=== PATIENT | male | born 1960 | race Caucasian/White ===

== ENCOUNTER 2019-03-18 16:56 | Inpatient (IN) | payer MEDICARE ==
[~2019-03-18] VITALS: Ht 180.3 cm; Wt 97.7 kg
[2019-03-18 17:20] LABS: BASOPHILS # (AUTO) 0.1 (0.0-0.1); BASOPHILS % 1.1 % (0.0-1.0); EOSINOPHILS # (AUTO) 0.2 (0.0-0.4); EOSINOPHILS % 3.4 % (0.0-6.0); HEMATOCRIT 27.1 % (38.2-49.6); HEMOGLOBIN 8.8 g/dL (14.0-18.0); LYMPHOCYTES # (AUTO) 1.4 (1.0-3.2); LYMPHOCYTES % 21.6 % (18.0-39.1); MEAN CORPUSCULAR HEMOGLOBIN 30.1 pg (28-32); MEAN CORPUSCULAR HGB CONC 32.5 g/dL (31-35); MEAN CORPUSCULAR VOLUME 92.8 fL (81-99); MONOCYTES # (AUTO) 0.5 (0.2-0.8); MONOCYTES % 7.9 % (4.4-11.3); NEUTROPHILS # (AUTO) 4.2 (2.1-6.9); NEUTROPHILS % 65.7 % (38.7-80.0); PLATELET COUNT 267 x10e3/uL (140-360); RED BLOOD COUNT 2.92 x10e6/uL (4.3-5.7); RED CELL DISTRIBUTION WIDTH 16.8 % (11.7-14.4)
[2019-03-18 17:30] LABS: INR 1.05; PROTHROMBIN TIME 14.2 seconds (11.9-14.5)
[2019-03-18] MEDS ORDERED: FUROSEMIDE INJ 10 MG/ML 4 ML VIAL IV ONE (17:30)
[2019-03-18 17:40] LABS: ALBUMIN 3.8 g/dL (3.5-5.0); ALBUMIN/GLOBULIN RATIO 1.2 (0.8-2.0); ANION GAP 16.3 mmol/L (8-16); CALCIUM 9.3 mg/dL (8.4-10.2); CREATININE, SERUM 5.83 mg/dL (0.72-1.25); POTASSIUM 4.3 mmol/L (3.5-5.1)
--- NOTE | 2019-03-18 17:52 | Diagnostic Imaging Report ---
EXAMINATION: CHEST SINGLE (PORTABLE) INDICATION: Chest patient is of breath. COMPARISON: None FINDINGS: TUBES and LINES: None. LUNGS: Mild central pulmonary edema. Bibasilar subsegmental atelectasis. Mild elevation of the right hemidiaphragm. There is mild prominence of the central pulmonary vasculature, consistent with pulmonary venous congestion. PLEURA: Small to moderate right and small left pleural effusions. No pneumothorax. HEART AND MEDIASTINUM: Cardiac size is mildly enlarged. BONES AND SOFT TISSUES: No acute osseous lesion. UPPER ABDOMEN: No free air under the diaphragm. IMPRESSION: Findings suggestive of decompensated CHF with mild bilateral pulmonary venous congestion. Cueup-ot-kedkuzru right and small left pleural effusions and bilateral lower lobe subsegmental atelectasis. Signed by: Dr. Omari Torres M.D. on 03/18/2019 5:48 PM
[2019-03-18] MEDS ORDERED: SODIUM CHLORIDE FLUSH 10 ML SYR INJ PRN (18:15)
--- OUTSIDE RECORDS SUMMARY | 2019-03-18 18:24 | XMS REPORT | Continuity of Care Document ---
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 Name Role Phone DR CRISTAL JULES DR CRISTAL JULES TONI CASANOVA [facility] Hospital Admission Diagnosis Code Admission Diagnosis Date [id number] Hypervolemia (disorder) Social History Element Description Code Description Smoking Status Code System Start Date End Date Smoking Status 680807731 Never smoker SNOMED-CT Problems Code Code System Problem Name Start Date End Date Status 92070744 SNOMED-CT Hypertensive disorder Unknown Unknown Active 968862416 SNOMED-CT Neuropathy Unknown Unknown Active 19013357 SNOMED-CT Congestive heart failure (disorder) Unknown Unknown Active 2396094 SNOMED-CT Diabetic retinopathy Unknown Unknown Active 98363704 SNOMED-CT Diabetes mellitus Unknown Unknown Active Medications RxNorm Medication Dose Route Instructions Indications Start Date End Date Status 228003 Amlodipine 10 MG Oral Tablet 10 MG ORAL ORAL ONCE A DAY Active 026194 carvedilol 3.125 MG Oral Tablet 6.25 MG ORAL ORAL TWICE A DAY Active 926747 Furosemide 40 MG Oral Tablet 20 MG ORAL ORAL ONCE A DAY Active 38113 gabapentin 400 milligram Oral orally every day Active 484125 Amlodipine 10 MG Oral Tablet 10 milligram Oral orally every day No Longer Active 932214 Insulin, Aspart Protamine, Human 25 unit Subcutaneous subcutaneously every day AM (administer 30-60 minutes before breakfast) No Longer Active 061582 Insulin, Aspart Protamine, Human 25 unit Subcutaneous subcutaneously every day PM (administer 30-60 minutes before breakfast) No Longer Active 6809 Metformin 1000 milligram Oral orally 2 times per day No Longer Active Allergies * No Known Allergies Results Laboratory Results Order: BMP BASIC METABOLIC PANEL LOINC Test Result Flag Range Unit Date 2349-11 1Glucose:MCnc:Pt:Urine:Qn 113 H 75-110 mg/dl 05/01/2017 06:41 3094-0 1Urea nitrogen:MCnc:Pt:Ser/Plas:Qn 80 H 6.0-17.0 mg/dl 05/01/2017 06:41 2160-0 1Creatinine:MCnc:Pt:Ser/Plas:Qn 8.6 H 0.4-1.2 mg/dl 05/01/2017 06:41 2951-2 1Sodium:SCnc:Pt:Ser/Plas:Qn 144 137-145 mmol/l 05/01/2017 06:41 2823-3 1Potassium:SCnc:Pt:Ser/Plas:Qn 4.5 3.5-5.0 mmol/l 05/01/2017 06:41 2075-0 1Chloride:SCnc:Pt:Ser/Plas:Qn 107 98-107 mmol/l 05/01/2017 06:41 8-9 1Carbon dioxide:SCnc:Pt:Ser/Plas:Qn 23 22-30 mmol/l 05/01/2017 06:41 36489-8 1Calcium:MCnc:Pt:Ser/Plas:Qn 7.6 L 8.4-10.2 mg/dl 05/01/2017 06:41 1EGFR if 8 mL/min/1.73m^2 05/01/2017 06:41 1EGFR if Non- 7 mL/min/1.73m^2 05/01/2017 06:41 Note: Estimated Glomerular Filtration Rate (eGFR) Reference Intervals Decision Points for 18 years and older and average body mass: >=60 Does not exclude kidney disease. 30 - 59 Suggests moderate chronic kidney disease and indicates the need for further investigation including assessment of proteinuria and cardiovascular factors. < 30 Usually indicates a need for referral for assessment and management of chronic kidney failure. * Performing Lab Footnotes:* [address] [place] [address] - [id number] - [address] [id number] - [place] [address] [place] - MD: DIRECTOR KENNY Omari BROOKS Order: CBC PLATELET AUTO DIFF LOINC Test Result Flag Range Unit Date 1Leukocytes^^corrected for nucleated erythrocytes:NCnc:Pt:Bld:Qn:Automated count 6.39 4.80-10.80 10^3/ul 05/01/2017 06:41 789-8 1Erythrocytes:NCnc:Pt:Bld:Qn:Automated count 3.01 L 4.70-6.10 10^6/ul 05/01/2017 06:41 718-7 1Hemoglobin:MCnc:Pt:Bld:Qn 8.6 L 14.0-18.0 gm/dl 05/01/2017 06:41 4544-3 1Hematocrit:VFr:Pt:Bld:Qn:Automated count 26.3 L 42.0-50.0 % 05/01/2017 06:41 787-2 1Erythrocyte mean corpuscular volume:EntVol:Pt:RBC:Qn:Automated count 87.4 80.0-94.0 fL 05/01/2017 06:41 785-6 1Erythrocyte mean corpuscular hemoglobin:EntMass:Pt:RBC:Qn:Automated count 28.6 27.0-31.0 pg 05/01/2017 06:41 786-4 1Erythrocyte mean corpuscular hemoglobin concentration:MCnc:Pt:RBC:Qn:Automated count 32.7 L 33.0-37.0 gm/dl 05/01/2017 06:41 788-0 1Erythrocyte distribution width:Ratio:Pt:RBC:Qn:Automated count 13.2 11.5-14.5 % 05/01/2017 06:41 777-3 1Platelets:NCnc:Pt:Bld:Qn:Automated count 240 130-400 10^3/ul 05/01/2017 06:41 96407-0 1Platelet mean volume:EntVol:Pt:Bld:Qn:Automated count 10.9 A 7.4-10.4 fL 05/01/2017 06:41 Note: 'NOT MEASURED' RESULTS ARE DISPLAYED WHEN THE INSTRUMENT HAS A SUPPRESSED OR UNREPORTABLE RESULT. THIS WILL MOST OFTEN HAPPEN WITH THE MPV WHEN THERE IS AN ABNORMAL PLATELET DISTRIBUTION DUE TO A CRITICAL LOW VALUE OR PLATELET CLUMPING. THE RDW MAY BE SUPPRESSED IF THERE ARE MULTIPLE PEAKS PRESENT ON THE RBC HISTOGRAM. IN THIS CASE, A MANUAL REVIEW OF THE SLIDE WILL BE PERFORMED, AND RBC MORPHOLOGY WILL BE NOTED ON THE REPORT. 770-8 1Neutrophils/100 leukocytes:NFr:Pt:Bld:Qn:Automated count 53.2 42.0-75.0 % 05/01/2017 06:41 736-9 1Lymphocytes/100 leukocytes:NFr:Pt:Bld:Qn:Automated count 36.5 13.0-42.0 % 05/01/2017 06:41 5905-5 1Monocytes/100 leukocytes:NFr:Pt:Bld:Qn:Automated count 5.6 4.0-14.0 % 05/01/2017 06:41 713-8 1Eosinophils/100 leukocytes:NFr:Pt:Bld:Qn:Automated count 3.8 H 1.0-3.0 % 05/01/2017 06:41 706-2 1Basophils/100 leukocytes:NFr:Pt:Bld:Qn:Automated count 0.6 L 1.0-3.0 % 05/01/2017 06:41 1IG% 0.3 0.0-0.4 % 05/01/2017 06:41 * Performing Lab Footnotes:* [address] [place] [address] [id number] - [address] [place] [address] [facility] - : DIRECTOR KENNY BROOKS Order: UA URINALYSIS WITH MICROSCOPY LOINC Test Result Flag Range Unit Date 57786 1Color:Type:Pt:Urine:Nom YELLOW 04/29/2017 12:45 5767-9 1Appearance:Aper:Pt:Urine:Nom CLEAR 04/29/2017 12:45 2349-9 1Glucose:ACnc:Pt:Urine:Ord 100 A NEGATIVE 04/29/2017 12:45 5770-3 1Bilirubin:ACnc:Pt:Urine:Ord:Test strip NEGATIVE NEGATIVE 04/29/2017 12:45 2514-8 1Ketones:ACnc:Pt:Urine:Ord:Test strip NEGATIVE NEGATIVE 04/29/2017 12:45 5811-5 1Specific gravity:Rden:Pt:Urine:Qn:Test strip 1.015 A 1.005-1.030 04/29/2017 12:45 5794-3 1Hemoglobin:ACnc:Pt:Urine:Ord:Test strip SMALL A NEGATIVE 04/29/2017 12:45 5803-2 1pH:LsCnc:Pt:Urine:Qn:Test strip 6.5 A 4.5-8.0 04/29/2017 12:45 29916-5 1Protein:ACnc:Pt:Urine:Ord:Test strip 100 A NEGATIVE 04/29/2017 12:45 5818-0 1Urobilinogen:ACnc:Pt:Urine:Ord:Test strip 0.2 0.2 04/29/2017 12:45 5802-4 1Nitrite:ACnc:Pt:Urine:Ord:Test strip NEGATIVE NEGATIVE 04/29/2017 12:45 5799-2 1Leukocyte esterase:ACnc:Pt:Urine:Ord:Test strip NEGATIVE NEGATIVE 04/29/2017 12:45 5821-4 1Leukocytes:Naric:Pt:Urine sed:Qn:Microscopy.light.HPF 0-5 0-5 04/29/2017 12:45 12150-0 1Erythrocytes:Naric:Pt:Urine sed:Qn:Microscopy.light.HPF 0-5 0-5 04/29/2017 12:45 90986-8 1Epithelial cells.squamous:Naric:Pt:Urine sed:Qn:Microscopy.light.HPF 0-5 A 0-10 04/29/2017 12:45 5769-5 1Bacteria:Naric:Pt:Urine sed:Qn:Microscopy.light.HPF None Seen None Seen,Trace 04/29/2017 12:45 * Performing Lab Footnotes:* [address] [place] [address] - [id number] - 1201 [facility] [address] [place] [address] MICHELE Martinez MD: DIRECTOR KENNY BROOKS Order: CULTURE URINE COLONY COUNT LOINC Test Result Flag Range Unit Date Specimen: Urine Specimens 04/29/2017 11:32 Collected: 04/29/2017 11:32 04/29/2017 11:32 04/29/2017 11:32 Status: Final Last Updated: 05/01/2017 06:36 04/29/2017 11:32 04/29/2017 11:32 04/29/2017 11:32 Culture Result (Final) (Final) 04/29/2017 11:32 No Growth After 48 Hours 04/29/2017 11:32 04/29/2017 11:32 04/29/2017 11:32 Order: A1C GLYCOSYLATED HEMOGLOBIN LOINC Test Result Flag Range Unit Date 1Hemoglobin A1C 8.2 H 4.3-6.0 % 04/29/2017 11:30 1Mean Plasma Glucose 215 90-180 mg/dl 04/29/2017 11:30 Note: WHEN TEST RESULTS FOR A1C EXCEED 14.0, THE LINEAR LIMIT OF THE INSTRUMENT, THE CALCULATED RESULT FOR THE MEAN GLUCOSE IS NOT RELIABLE. * Performing Lab Footnotes:* [address] [place] [address] - [id number] - 1201 [facility] [address] [place] [address] MICHELE Martinez MD: DIRECTOR KENNY BROOKS Order: CMP COMPREHENSIVE METABOLIC PANEL LOINC Test Result Flag Range Unit Date 1Glucose 123 H 75-110 mg/dl 04/29/2017 11:30 1BUN 76 H 6.0-17.0 mg/dl 04/29/2017 11:30 1Creatinine 8.3 H 0.4-1.2 mg/dl 04/29/2017 11:30 1Sodium 146 H 137-145 mmol/l 04/29/2017 11:30 1Potassium 4.3 3.5-5.0 mmol/l 04/29/2017 11:30 1Chloride 108 H 98-107 mmol/l 04/29/2017 11:30 1CO2 25 22-30 mmol/l 04/29/2017 11:30 1Calcium 7.3 L 8.4-10.2 mg/dl 04/29/2017 11:30 1T Protein 7 5.1-8.7 gm/dl 04/29/2017 11:30 1Albumin 3.6 3.5-4.6 gm/dl 04/29/2017 11:30 1A/G Ratio 1.1 1.1-2.2 % 04/29/2017 11:30 1AST (SGOT) 28 11-36 U/L 04/29/2017 11:30 1ALT (SGPT) 26 11-40 U/L 04/29/2017 11:30 1Alkaline Phos 72 47-114 U/L 04/29/2017 11:30 1Total Bilirubin 0.5 0.2-1.2 mg/dl 04/29/2017 11:30 1Globulin 3.4 2.3-3.5 gm/dl 04/29/2017 11:30 1Calcium, Corrected 7.6 L 8.4-10.2 mg/dl 04/29/2017 11:30 Note: Various formulas exist for corrected serum calcium results, each yielding different values. This corrected result was based on the formula: Corrected Calcium=SerumCalcium + [0.8 * ( 4 - SerumAlbumin)] 1EGFR if 9 mL/min/1.73m^2 04/29/2017 11:30 1EGFR if Non- 7 mL/min/1.73m^2 04/29/2017 11:30 Note: Estimated Glomerular Filtration Rate (eGFR) Reference Intervals Decision Points for 18 years and older and average body mass: >=60 Does not exclude kidney disease. 30 - 59 Suggests moderate chronic kidney disease and indicates the need for further investigation including assessment of proteinuria and cardiovascular factors. < 30 Usually indicates a need for referral for assessment and management of chronic kidney failure. * Performing Lab Footnotes:* [address] [place] [address] [id number] - [address] [place] [address] [place] [address] MICHELE Martinez MD: DIRECTOR KENNY BROOKS Order: FERRITIN LOINC Test Result Flag Range Unit Date 1Ferritin 275 17.0-464.0 ng/ml 04/29/2017 11:30 * Performing Lab Footnotes:* [address] [place] [address] - [id number] - 1201 [facility] [address] [place] [address] MICHELE Martinez MD: DIRECTOR KENNY BROOKS Order: FOLATE SERUM LOINC Test Result Flag Range Unit Date 1Folic Acid 14.6 2.76-20.00 ng/ml 04/29/2017 11:30 * Performing Lab Footnotes:* [address] [place] [address] [id number] - 1201 [facility] [address] [place] [address], [place] [address] [facility] MD: DIRECTOR KENNY BROOKS Order: IRON ( FE )BLOOD LOINC Test Result Flag Range Unit Date 1Iron 31 20-149 ug/dl 04/29/2017 11:30 * Performing Lab Footnotes:* [facility] [place] - [id number] - [address] [place] [address] [place] [address], [place] [address] [facility] : DIRECTOR KENNY BROOKS Order: IRON SATURATION LOINC Test Result Flag Range Unit Date 1Iron 31 20-149 ug/dl 04/29/2017 11:30 1TIBC 264 178-500 ug/dl 04/29/2017 11:30 1Iron Saturation 12 L 16-62 % 04/29/2017 11:30 * Performing Lab Footnotes:* 1[facility] [place] - [id number] - [address] [place] [address] [place] [address], [place] [address] [facility] MD: DIRECTOR KENNY BROOKS Order: MAGNESIUM SERUM LOINC Test Result Flag Range Unit Date 1Magnesium 1.7 1.6-2.3 mg/dl 04/29/2017 11:30 * Performing Lab Footnotes:* [address] [place] [address] - [id number] - [address] [address] [facility] Juan FAJARDO: DIRECTOR KENNY BROOKS Order: PHOSPHORUS SERUM LOINC Test Result Flag Range Unit Date 1Phosphorus 5.9 H 2.5-4.5 mg/dl 04/29/2017 11:30 * Performing Lab Footnotes:* [address] [place] [address] - [id number] - [address] [address] MICHELE Martinez MD: DIRECTOR KENNY BROOKS Order: PROTIME PT INR LOINC Test Result Flag Range Unit Date 59006-22 1Coagulation tissue factor induced:Time:Pt:PPP:Qn:Coag 10.7 9.0-11.9 seconds 04/29/2017 11:30 6301-6 1Coagulation tissue factor induced.INR:RelTime:Pt:PPP:Qn:Coag 1 0.9-1.1 04/29/2017 11:30 Note: INR results are intended ONLY to monitor Oral Anticoagulant therapy in stablized patients. The INR Therapeutic Range is 2.0 - 3.0 Patients with a mechanical heart, the INR Range is 2.5 - 3.5 * Performing Lab Footnotes:* [address] [place] [address] [id number] - [address] [place] [address], [place] [address] [facility] Juan FAJARDO: DIRECTOR KENNY BROOKS Order: PTH INTACT LOINC Test Result Flag Range Unit Date 1PTH, INTACT 633 H 10-65 04/29/2017 11:30 * Performing Lab Footnotes:* [address] [place] [address] [id number] - [address] [place] [address] [facility] Juan MD: DIRECTOR KENNY BROOKS Order: PTT PARTIAL THROMBOPLASTIN TM LOINC Test Result Flag Range Unit Date 97636-3 1Coagulation surface induced:Time:Pt:PPP:Qn:Coag 31.5 23.0-33.0 seconds 04/29/2017 11:30 * Performing Lab Footnotes:* [address] [place] [address] [id number] - [address] [place] [address], [place] [address] [facility] - MD: DIRECTOR KENNY BROOKS Order: TIBC LOINC Test Result Flag Range Unit Date 1TIBC 259 178-500 ug/dl 04/29/2017 11:30 * Performing Lab Footnotes:* [address] [place] [address] - [id number] - [address] [address] [facility] Juan FAJARDO: DIRECTOR KENNY BROOKS Order: TSH ULTRA SENSITIVE LOINC Test Result Flag Range Unit Date 1TSH 4.49 0.47-4.68 mIU/L 04/29/2017 11:30 * Performing Lab Footnotes:* [address] [place] [address] - [id number] - 1201 [facility] [address] [place] [address] [facility] - MD: DIRECTOR KENNY BROOKS Order: VITAMIN B12 LOINC Test Result Flag Range Unit Date 1B12 909 239-941 pg/ml 04/29/2017 11:30 * Performing Lab Footnotes:* [address] [place] [address] [id number] - [address] [place] [address] [facility] Juan FAJARDO: DIRECTOR KENNY BROOKS Radiology Results Order: [id number] XR CHEST 2 PA LATERAL* Exam Completion Date:04/29/2017 11:18 Procedure: XR CHEST 2 PA LATERALExam date: 04/29/2017 11:18 AMOrdering Provider : CHAY Roblesinical Indication: R/O TB, renal failureComparison: April 29 13Findings:Mild cardiomegaly.Mild diffuse interstitial airspace opacities sugges tive of volume overload. No pleural effusion or pneumothorax. Osseous structures are nonacute.No evidence of active tuberculosis.Impression:1. Findings of mild interstitial pulmonary edema.2. Mild cardiomegaly.This final report was electron ically signed by Dr Juan Davis MD 04/29/201712:25 PMDictated By: MEÑO DAVISDate: 04/29/2017 12:31 Order: [id number] US RENAL & BLADDER (KIDNEYS)* Exam Completion Date:04/29/2017 11:17 Procedure: US RENAL Exam Date: 04/29/2017 11:17 AMOrdering Provider: CHAY BAHENA linical Indication: RENAL FAILUREComparison: NoneTechnique: Real-time ultrasono graphy was obtained over the kidneys and urinarybladder and metals sales representative image s were recorded.Findings:The right kidney is normal in size and contour. Renal c ortical thinning as well as increased echogenicity.1.6 cm Bosniak type II cyst w ithin the superior pole with a thin echogeniccalcific septation. The left kidney is normal in size and contour. Renal cortical thinning as well as increased ech ogenicity.There are no masses, calculi, or hydronephrosis.There are no bladder c alculi, masses, or focal wall thickening.Impression: 1. Findings compatible with medical renal disease without hydronephrosis.2. Bosniak type II cyst seen within the superior pole right kidney.This final report was electronically signed by Dr Juan Davis MD 04/29/20171:19 PMDictated By: JUAN DAVISDate: 04/20 13:25 Vital Signs Vitals Value Date Body Temperature 98 F 05/01/2017 Respiratory Rate 14 05/01/2017 O2% BldC Oximetry 95 05/01/2017 BP Systolic 161 mmHg 05/01/2017 BP Diastolic 79 mmHg 05/01/2017 Height 72 in 04/29/2017 Weight Measured 192.39 lbs 04/29/2017 BSA (Body Surface Area) 2.0955 04/29/2017 BMI (Body Mass Index) 26.3 04/29/2017 Plan of Care * No data in the system Procedures Code Code System Procedure Name Target Site Date of Procedure US RENAL & BLADDER (KIDNEYS) 04/29/2017 13:25 XR CHEST 2 PA LATERAL 04/29/2017 12:31 Encounters Date Code Diagnosis Status ([facility]) - 29684628 FLUID OVERLOAD UNSPECIFIED Active Immunizations * No data in the system Functional Status Code Functional/Cognitive Condition Code System Date Status 772178960 Sensation of hot and cold [facility] 04/29/2017 Active 957292779 No speech problem (situation) [facility] 05/01/2017 Active 613515273 Blindness - both eyes (disorder) [facility] 05/01/2017 Active 013104297 Firm pressure touch, function (observable entity) [facility] 04/29/2017 Active 908177997 Orientated [facility] 05/01/2017 Active 622690720 Orientated [facility] 05/01/2017 Active 163806692 [facility]ated [facility] 05/01/2017 Active 899289802 Ability to perform activities of everyday life (observable entity) [facility] 04/29/2017 Active 634655592 Needs assistance at home [facility] 04/29/2017 Active 124607658 Oriented to person [facility] 05/01/2017 Active 083101567 Stable gait (finding) [facility] 04/29/2017 Active 7774904 Abnormal vision (finding) [facility] 04/30/2017 Active 0452196 Abnormal vision (finding) [facility] 05/01/2017 Active Hospital Discharge Instructions * Psychosocial* Assistance Required* None * Patient/Family Concerns* None * Emotional State* Calm * Housing Type* House * Emotional State* Pleasant * Discharge Instructions* Discharge Diagnosis* left groin abscess * Date/Time of Follow Up Appt #1* 06/12/2017 11:15 * Physician Name for Follow Up Appt #1* Follow up with Dr. Horowitz on June 12 at 11:15am. * Pneumonia Vaccine* Refused By Patient * IV Removed Date* 05/01/17 * Referral Required* None * Activity Level* As tolerated, unrestricted * Medications* Continue Present Medications * Take all medications as listed on your Discharge Medication List as directed * DO NOT STOP taking your medicine(s) until directed by your doctor. * Diet* 1800 ADA Renal diet. * Diabetic * Instructions Provided * Other * Discharge Instructions* Patient education provided * Follow Up Care* Yes * Scheduled Appointment * Written Discharge Plan given to the Patient at the time of discharge contains: * Reason for hospitalization * Discharge medications including what medications to take, how to take them, and how to obtain the medication. * Patient / family / caregiver given instructions on what to do if their condition changes. * Coordination and planning for follow-up appointments that the patient can keep. * Coordination and planning for follow-up of tests and studies for which confirmed results are not available at time of discharge. * Influenza Vaccine NOT Given, State Reason(s) Below:* Refused By Patient/Caregiver * Discharge Instructions 2* Wound / Incision Care* Not Applicable * Core Measure / Get with the Guidelines (AMI/HF)* Review Discharge Medications with patient for next dose times * Smoking Cessation Teaching* Patient is nonsmoker or former smoker of greater than one year * Discharge Education* Copy of Discharge Medication List * Discussed New / Changed Medications * Personal Belongings Returned To Patient/Family* Yes * Valuables Returned To Patient/Family* Yes * Pre-Admission Medications Returned To Patient/Family* N/A * Patient/Significant Other Education Acknowledgement* I hereby acknowledge receiving the explanation of the attached instructions. I was able to 'teach back' my health information and education to my nurse and I understand what I was taught as indicated by my signature below. * Person Receiving Discharge Instructions* patient * Discharge Instructions Explained To* Patient * Discharge Summary* Mode Of Discharge* Wheelchair * Discharge Status* Vital Signs Stable * Patient Transferred/Discharged To* Home * Discharge Status* Afebrile * Accompanied By* Relatives * Discharge Status* Adequate Diet/Liquid Intake * Adequate Urinary Output * Adequate Bowel Functioning * Activity Tolerated within Physical Limits * Pain At Discharge* Denies Pain
--- OUTSIDE RECORDS SUMMARY | 2019-03-18 18:24 | XMS REPORT ---
Author [facility] Address Unknown Phone Unavailable Care Team Providers Care Build Technician Name Role Phone Bhavana SAUNDERS Unavailable Unavailable DELUNA, CHAY Unavailable Unavailable MOPUR Unavailable Unavailable Payers Payer Name Policy Type Policy Number Effective Date Expiration Date Problems This patient has no known problems. Allergies, Adverse Reactions, Alerts Allergy Name Allergy Type Status Severity Reaction(s) Onset Date Inactive Date Treating Clinician Comments No Known Allergies DA Active U 2018-12-28 00:00:00 Medications This patient has no known medications. Results Test Description Test Time Test Comments Text Results Atomic Results Result Comments CHEST SINGLE (PORTABLE) 2019-03-18 17:47:00 [place] [address] Patient Name: ELEAZAR RICE MR #: [id number] : 1960 Age/Sex: 58/M Req #: [id number] Adm Physician: Ordered by: SHANTA SAUNDERS MD Report #: [id number] Location: ER Room/Bed: Procedure: [id number] DX/CHEST SINGLE (PORTABLE) Exam Date: 03/18/19 Exam Time: 1726 REPORT STATUS: Signed EXAMINATION: CHEST SINGLE (PORTABLE) IN DICATION: Chest patient is of breath. COMPARISON: None FINDINGS: TUBES and LINES: None. LUNGS: Mild central pulmonary edema. Bibasilar subsegmental atelectasis. Mild elevation of the right hemidiaphragm. There is mild prominence of the central pulmonary vasculature, consistent with pulmonary venous congestion. PLEURA: Small to moderate right and small left pleural effusions. No pneumothorax. HEART AND MEDIASTINUM: Cardiac size is mildly enlarged. BONES AND SOFT TISSUES: No acute osseous lesion. UPPER ABDOMEN: No free air under the diaphragm. IMPRESSION: Findings suggestive of decompensated CHF with mild bilateral pulmonary venous congestion. Dkrzs-xj-qiocalpo right and small left pleural effusions and bilateral lower lobe subsegmental atelectasis. Signed by: Dr. Omari Goodrich M.D. on 03/18/2019 5:48 PM Dictated By: CHARLES GOODRICH MD, MD 47 Transcribed By: MEGAN on 03/18/191747 COPY TO: SHANTA SAUNDERS MD GLUBED 2019-01-07 05:20:00 GLUBED (test code=GLUBED) 129 MG/DL 74-106 [id number] 20:36:00* Test Item Value Reference Range Comments GLUBED (test code=GLUBED) 186 MG/DL 74-106 [id number] 17:02:00* Test Item Value Reference Range Comments GLUBED (test code=GLUBED) 150 MG/DL 74-106 [id number] 11:52:00* Test Item Value Reference Range Comments GLUBED (test code=GLUBED) 141 MG/DL 74-106 [id number] 06:13:00* Test Item Value Reference Range Comments GLUBED (test code=GLUBED) 111 MG/DL 74-106 [id number] 06:13:00* Test Item Value Reference Range Comments GLUBED (test code=GLUBED) 189 MG/DL 74-106 [id number] 17:33:00* Test Item Value Reference Range Comments GLUBED (test code=GLUBED) 187 MG/DL 74-106 [id number] 11:26:00* Test Item Value Reference Range Comments GLUBED (test code=GLUBED) 162 MG/DL 74-106 [id number] 05:23:00* Test Item Value Reference Range Comments GLUBED (test code=GLUBED) 128 MG/DL 74-106 [id number] 20:39:00* Test Item Value Reference Range Comments GLUBED (test code=GLUBED) 147 MG/DL 74-106 [id number] 18:10:00* Test Item Value Reference Range Comments GLUBED (test code=GLUBED) 100 MG/DL 74-106 [id number] 11:34:00* Test Item Value Reference Range Comments GLUBED (test code=GLUBED) 133 MG/DL 74-106 [id number] 05:31:00* Test Item Value Reference Range Comments GLUBED (test code=GLUBED) 109 MG/DL 74-106 [id number] 20:59:00* Test Item Value Reference Range Comments GLUBED (test code=GLUBED) 135 MG/DL 74-106 [id number] 17:26:00* Test Item Value Reference Range Comments GLUBED (test code=GLUBED) 184 MG/DL 74-106 [id number] 11:31:00* Test Item Value Reference Range Comments GLUBED (test code=GLUBED) 128 MG/DL 74-106 [id number] 05:42:00* Test Item Value Reference Range Comments GLUBED (test code=GLUBED) 114 MG/DL 74-106 [id number] 06:38:00* Test Item Value Reference Range Comments GLUBED (test code=GLUBED) 134 MG/DL 74-106 [id number] 06:37:00* Test Item Value Reference Range Comments GLUBED (test code=GLUBED) 150 MG/DL 74-106 [id number] 20:51:00* Test Item Value Reference Range Comments GLUBED (test code=GLUBED) 147 MG/DL 74-106 [id number] 13:23:00* Test Item Value Reference Range Comments GLUBED (test code=GLUBED) 122 MG/DL 74-106 [id number] 11:13:00* Test Item Value Reference Range Comments GLUBED (test code=GLUBED) 169 MG/DL 74-106 [id number] 09:28:00* Test Item Value Reference Range Comments GLUBED (test code=GLUBED) 132 MG/DL 74-106 PROTHROMBIN [id number] 00:25:00* Test Item Value Reference Range Comments PROTHROMBIN TIME PATIENT (test code=PTP) 12.6 SECONDS 9.2-12.1 INTERNATIONAL NORMAL RATIO (test code=INR) 1.1 The INR is to be used only for monitoring ORAL ANTICOAGULANTTHERAPY. Indication INR Value1. Prophylaxis/treatment of: Venous Thrombosis, Pulmonary Embolism 2.0 - 3.02. Prevention of systemic embolism from: Tissue heart valves 2.0 - 3.0 Acute myocardial infarction (to present systemic embolism)* 2.0 - 3.0 Valvular heart disease 2.0 - 3.0 Atrial fibrillation 2.0 - 3.03. Mechanical prosthetic valves (high risk) 2.5 - 3.5 * If oral anticoagulant therapy is elected to preventrecurrent myocardial infarction, an INR of 2.5-3.5 isrecommended, consistent with Food and Drug Administrationrecommendations. THROMBOPLASTIN TIME [id number] 00:25:00* Test Item Value Reference Range Comments THROMBOPLASTIN TIME PARTIAL (test code=PTT) 29.3 SECONDS 23.4-37.0 Therapeutic Range for Heparin EFFECTIVE 11/27/12 Heparin IU/mL aPTT Seconds0.3 64.30.7 88.8 COMPREHENSIVE METABOLIC [id number] 00:17:00* Test Item Value Reference Range Comments SODIUM (test code=NA) 137 mmol/L 137-145 POTASSIUM (test code=K) 4.3 mmol/L 3.4-5.0 CHLORIDE (test code=CL) 93 mmol/L 98-107 CARBON DIOXIDE (test code=CO2) 30 mmol/L 22-30 GLUCOSE (test code=GLU) 168 mg/dL 74-106 BLOOD UREA NITROGEN (test code=BUN) 27 mg/dL 9-20 GLOMERULAR FILTRATION RATE (test code=GFR) 10 >60 The estimated glomerular filtration rate is computed usingpatient race, age (>18), sex, and serum creatinine. If anyof the needed data elements are missing the Laboratory cannot compute an estimation of the glomerular filtration rate. CREATININE (test code=CREAT) 6.2 mg/dL 0.7-1.3 TOTAL PROTEIN (test code=PROT) 7.4 g/dL 6.3-8.2 ALBUMIN (test code=ALB) 4.3 g/dL 3.5-5.0 CALCIUM (test code=CA) 9.4 mg/dL 8.4-10.2 BILIRUBIN TOTAL (test code=BILT) 0.7 mg/dL 0.2-1.3 BILIRUBIN CONJUGATED (test code=BILCON) 0 mg/dL 0-0.3 ~~~~~~~~~~~~~~~~~~~~~~~~~~~~~~~~~~~~~~~~~~~~~~~~~~~~~~~~~~~~CONJUGATED BILIRUBIN IS THE REPLACEMENT ASSAY FOR DIRECTBILIRUBIN.~~~~~~~~~~~~~~~~~~~~~~~~~~~~~~~~~~~~~~~~~~~~~~~~~~~~~~~~~~~~ BILIRUBIN UNCONJUGATED (test code=BILUNC) 0.4 mg/dL 0-1.1 SGOT/AST (test code=AST) 30 U/L 15-46 SGPT/ALT (test code=ALT) 22 U/L 13-69 ALKALINE PHOSPHATASE (test code=ALKP) 59 U/L 38-126 URINALYSIS [id number] 00:13:00* Test Item Value Reference Range Comments UA COLOR (test code=COLU) Yellow Yellow UA APPEARANCE (test code=APPU) Clear Clear UA GLUCOSE DIPSTICK (test code=DGLUU) >=500 (3+) Negative UA BILIRUBIN DIPSTICK (test code=BILU) Negative Negative UA KETONE DIPSTICK (test code=KETU) Negative mg/dL Negative UA SPECIFIC GRAVITY (test code=SGU) 1.005 <1.030 UA BLOOD DIPSTICK (test code=CORTES) 1+ Negative UA PH DIPSTICK (test code=NORAH) 9.0 5.0-8.0 UA PROTEIN DIPSTICK (test code=PROU) 300 (3+) mg/dL Negative UA UROBILINOGEN DIPSTICK (test code=URO) Negative mg/dL Negative UA NITRITE DIPSTICK (test code=ELLIOT) Negative Negative UA LEUKOCYTE ESTERASE DIPSTICK (test code=LEUU) NEGATIVE Negative UA WBC (test code=WBCU) 0-3 /HPF <4-5 UA RBC (test code=RBCU) 0-3 /HPF <4-5 UA BACTERIA (test code=BACU) NONE SEEN /HPF None-Rare CBC W/AUTO [id number] 00:06:00* Test Item Value Reference Range Comments WHITE BLOOD CELL (test code=WBC) 6.0 x10 3/uL 5.0-12.0 RED BLOOD CELL (test code=RBC) 3.37 x10 6/uL 4.70-6.10 HEMOGLOBIN (test code=HGB) 10.1 g/dL 14.0-18.0 HEMATOCRIT (test code=HCT) 29.6 % 37.0-49.0 MEAN CELL VOLUME (test code=MCV) 88 fL 80-94 MEAN CELL HGB (test code=MCH) 30.0 pg 27-31 MEAN CELL HGB CONCENTRATION (test code=MCHC) 34.1 g/dL 33-37 RED CELL DISTRIBUTION WIDTH (test code=RDW) 13.7 % 11.5-15.5 PLATELET COUNT (test code=PLT) 186 x10 3/uL 130-400 MEAN PLATELET VOLUME (test code=MPV) 9.6 fL 9.4-16.4 NEUTROPHIL % (test code=NT%) 64.9 % 43-65 IMMATURE GRANULOCYTE % (test code=IG%) 0.2 % 0.0-2.0 LYMPHOCYTE % (test code=LY%) 21.0 % 20.5-45.5 MONOCYTE % (test code=MO%) 8.5 % 5.5-11.7 EOSINOPHIL % (test code=EO%) 4.2 % 0.9-2.9 BASOPHIL % (test code=BA%) 1.2 % 0.2-1.0 NUCLEATED RBC % (test code=NRBC%) 0.0 % 0-1.0 NEUTROPHIL # (test code=NT#) 3.91 x10 3/uL 2.2-4.8 IMMATURE GRANULOCYTE # (test code=IG#) 0.01 x10 3/uL 0-0.03 LYMPHOCYTE # (test code=LY#) 1.26 x10 3/uL 1.3-2.9 MONOCYTE # (test code=MO#) 0.51 x10 3/uL 0.3-0.8 EOSINOPHIL # (test code=EO#) 0.25 x10 3/uL 0.0-0.2 BASOPHIL # (test code=BA#) 0.07 x10 3/uL 0.0-0.1 [id number] 20:18:00* Test Item Value Reference Range Comments GLUBED (test code=GLUBED) 173 MG/DL 74-106 [id number] 15:38:00* Test Item Value Reference Range Comments GLUBED (test code=GLUBED) 109 MG/DL 74-106 AB HEPATITIS B [id number] 15:00:00* Test Item Value Reference Range Comments AB HEPATITIS B SURFACE (test code=HBSAB) POSITIVE CLINICAL INTERPRETATION OF IMMUNE STATUSNEGATIVE: Inconsistent with immunity to HBV infection, less than 5.0 mIU/mL POSITIVE: Consistent with immunity to HBV infection, greater than 10.0 mIU/mL HEP B CORE AB [id number] 15:00:00* Test Item Value Reference Range Comments HEP B CORE AB TOTAL (test code=HBCAB) Negative Negative Performed At: [facility] [id number] [place], [place] [id number] Kyle L MD Ph:[phone] LIPID PROFILE (CORONARY RISK)2018-12-31 06:14:00* Test Item Value Reference Range Comments TRIGLYCERIDES (test code=TRIG) 53 mg/dL TRIGLYCERIDES REFERENCE RANGE:Normal: <150 mg/dLBorderline High: 150-199 mg/dLHigh: 200-499 mg/dLVery High: >=500 mg/dL CHOLESTEROL (test code=CHOL) 72 mg/dL CHOLESTEROL REFERENCE RANGE:DESIRABLE: < 200 mg/dLBORDERLINE: 200-239 mg/dLHIGH: >=240 mg/dL HDL CHOLESTEROL (test code=HDL) 35 mg/dL 40-59 LIPOPROTEIN LDL (test code=LDLC) < 30.00 mg/dL 32-99 CORONARY RISK FACTOR (test code=RISK) 2.06 CHOL/HDL RISK MALE: 1/2 AVG 3.43 FEMALE: 1/2 AVG 3.27 AVG 4.97 AVG 4.44 2X AVG 9.55 2X AVG 7.05 3X AVG 23.39 3X AVG 11.04~~~~~~~~~~~~~~~~~~~~~~~~~~~~~~~~~~~~~~~~~~~~~~~~~~~~~~~~~~~~National Cholesterol Education (NCEP) Guidelines:~~~~~~~~~~~~~~~~~~~~~~~~~~~~~~~~~~~~~~~~~~~~~~~~~~~~~~~~~~~~ HDL Cholesterol<40mg/dL: HDL Cholesterol (Major risk factor for CHD)>60mg/dL: HDL Cholesterol (Negative risk factor for CHD)40-59mg/dL: Borderline Risk LDL Cholesterol<100mg/dL: Desirable LDL-C kftlpunzhxtsz363-677fo/dL: Borderline High Risk LDL-C hwbywephqvfla359-197fp/dL: High risk LDL-C concentration HDL-LDL Cholesterol is affected by a number of factors suchas smoking, age and sex.~~~~~~~~~~~~~~~~~~~~~~~~~~~~~~~~~~~~~~~~~~~~~~~~~~~~~~~~~~~~ LIPID PROFILE (CORONARY RISK)2018-12-31 06:05:00* Test Item Value Reference Range Comments TRIGLYCERIDES (test code=TRIG) 53 mg/dL TRIGLYCERIDES REFERENCE RANGE:Normal: <150 mg/dLBorderline High: 150-199 mg/dLHigh: 200-499 mg/dLVery High: >=500 mg/dL CHOLESTEROL (test code=CHOL) 72 mg/dL CHOLESTEROL REFERENCE RANGE:DESIRABLE: < 200 mg/dLBORDERLINE: 200-239 mg/dLHIGH: >=240 mg/dL HDL CHOLESTEROL (test code=HDL) 35 mg/dL 40-59 LIPOPROTEIN LDL (test code=LDLC) mg/dL 32-99 CORONARY RISK FACTOR (test code=RISK) 2.06 CHOL/HDL RISK MALE: 1/2 AVG 3.43 FEMALE: 1/2 AVG 3.27 AVG 4.97 AVG 4.44 2X AVG 9.55 2X AVG 7.05 3X AVG 23.39 3X AVG 11.04~~~~~~~~~~~~~~~~~~~~~~~~~~~~~~~~~~~~~~~~~~~~~~~~~~~~~~~~~~~~National Cholesterol Education (NCEP) Guidelines:~~~~~~~~~~~~~~~~~~~~~~~~~~~~~~~~~~~~~~~~~~~~~~~~~~~~~~~~~~~~ HDL Cholesterol<40mg/dL: HDL Cholesterol (Major risk factor for CHD)>60mg/dL: HDL Cholesterol (Negative risk factor for CHD)40-59mg/dL: Borderline Risk LDL Cholesterol<100mg/dL: Desirable LDL-C ejsmhbauoazkg603-163to/dL: Borderline High Risk LDL-C dbfiycvfidvxj942-488dr/dL: High risk LDL-C concentration HDL-LDL Cholesterol is affected by a number of factors suchas smoking, age and sex.~~~~~~~~~~~~~~~~~~~~~~~~~~~~~~~~~~~~~~~~~~~~~~~~~~~~~~~~~~~~ BASIC METABOLIC [id number] 06:04:00* Test Item Value Reference Range Comments SODIUM (test code=NA) 139 mmol/L 137-145 POTASSIUM (test code=K) 4.8 mmol/L 3.4-5.0 CHLORIDE (test code=CL) 94 mmol/L 98-107 CARBON DIOXIDE (test code=CO2) 27 mmol/L 22-30 GLUCOSE (test code=GLU) 136 mg/dL 74-106 BLOOD UREA NITROGEN (test code=BUN) 57 mg/dL 9-20 GLOMERULAR FILTRATION RATE (test code=GFR) 6 >60 The estimated glomerular filtration rate is computed usingpatient race, age (>18), sex, and serum creatinine. If anyof the needed data elements are missing the Laboratory cannot compute an estimation of the glomerular filtration rate. CREATININE (test code=CREAT) 9.6 mg/dL 0.7-1.3 CALCIUM (test code=CA) 8.9 mg/dL 8.4-10.2 CBC W/AUTO [id number] 05:52:00* Test Item Value Reference Range Comments WHITE BLOOD CELL (test code=WBC) 5.8 x10 3/uL 5.0-12.0 RED BLOOD CELL (test code=RBC) 3.37 x10 6/uL 4.70-6.10 HEMOGLOBIN (test code=HGB) 9.7 g/dL 14.0-18.0 HEMATOCRIT (test code=HCT) 30.0 % 37.0-49.0 MEAN CELL VOLUME (test code=MCV) 89 fL 80-94 MEAN CELL HGB (test code=MCH) 28.8 pg 27-31 MEAN CELL HGB CONCENTRATION (test code=MCHC) 32.3 g/dL 33-37 RED CELL DISTRIBUTION WIDTH (test code=RDW) 13.7 % 11.5-15.5 PLATELET COUNT (test code=PLT) 185 x10 3/uL 130-400 MEAN PLATELET VOLUME (test code=MPV) 10.3 fL 9.4-16.4 NEUTROPHIL % (test code=NT%) 63.7 % 43-65 IMMATURE GRANULOCYTE % (test code=IG%) 0.3 % 0.0-2.0 LYMPHOCYTE % (test code=LY%) 21.6 % 20.5-45.5 MONOCYTE % (test code=MO%) 8.4 % 5.5-11.7 EOSINOPHIL % (test code=EO%) 4.8 % 0.9-2.9 BASOPHIL % (test code=BA%) 1.2 % 0.2-1.0 NUCLEATED RBC % (test code=NRBC%) 0.0 % 0-1.0 NEUTROPHIL # (test code=NT#) 3.71 x10 3/uL 2.2-4.8 IMMATURE GRANULOCYTE # (test code=IG#) 0.02 x10 3/uL 0-0.03 LYMPHOCYTE # (test code=LY#) 1.26 x10 3/uL 1.3-2.9 MONOCYTE # (test code=MO#) 0.49 x10 3/uL 0.3-0.8 EOSINOPHIL # (test code=EO#) 0.28 x10 3/uL 0.0-0.2 BASOPHIL # (test code=BA#) 0.07 x10 3/uL 0.0-0.1 [id number] 05:32:00* Test Item Value Reference Range Comments GLUBED (test code=GLUBED) 137 MG/DL 74-106 [id number] 20:54:00* Test Item Value Reference Range Comments GLUBED (test code=GLUBED) 121 MG/DL 74-106 [id number] 17:06:00* Test Item Value Reference Range Comments GLUBED (test code=GLUBED) 160 MG/DL 74-106 [id number] 12:38:00* Test Item Value Reference Range Comments GLUBED (test code=GLUBED) 148 MG/DL 74-106 [id number] 06:21:00* Test Item Value Reference Range Comments GLUBED (test code=GLUBED) 125 MG/DL 74-106 DRUGS OF ABUSE [id number] 22:26:00* Test Item Value Reference Range Comments TRICYCLICS QL SQN (test code=TRIUR) NEGATIVE NEG TEST PERFORMED MANUALLY USING SYVA RAPIDTEST TCA.CUTOFF >/=1000 NG/ML A Positive drug screen result provides only a "PreliminaryPositive" test result.If a confirmation of positive result is necessary, a morespecific confirmatory test must be ordered by the physician. Drug screens are performed for medical (i.e. treatment)purposes only. Unconfirmed screening results must not beused for non-medical purposes (e.g employment testing). UR COCAINE (test code=COCAU) NEGATIVE NEGATIVE CUTOFF >/=300 NG/ML UR THC CANABINOIDS QL SQN (test code=CANU) NEGATIVE NEGATIVE CUTOFF >/=20 NG/ML UR AMPHETAMINE QL SQN (test code=AMPHU) NEGATIVE NEGATIVE CUTOFF >/=500 NG/ML UR BARBITURATE QUAL (test code=BARBQLU) NEGATIVE NEGATIVE CUTOFF >/=200 NG/ML UR BENZODIAZEPINE (test code=BENZU) NEGATIVE NEGATIVE CUTOFF >/=200 NG/ML UR OPIATES QUAL (test code=OPIAQLU) POSITIVE NEGATIVE CUTOFF >/=2000 NG/ML UR PHENCYCLIDINE (PCP) (test code=PHENCU) NEGATIVE NEGATIVE CUTOFF >/=25 NG/ML DRUGS OF ABUSE [id number] 22:10:00* Test Item Value Reference Range Comments TRICYCLICS QL SQN (test code=TRIUR) NEGATIVE NEG TEST PERFORMED MANUALLY USING SYVA RAPIDTEST TCA.CUTOFF >/=1000 NG/ML A Positive drug screen result provides only a "PreliminaryPositive" test result.If a confirmation of positive result is necessary, a morespecific confirmatory test must be ordered by the physician. Drug screens are performed for medical (i.e. treatment)purposes only. Unconfirmed screening results must not beused for non-medical purposes (e.g employment testing). UR COCAINE (test code=COCAU) NEGATIVE NEGATIVE CUTOFF >/=300 NG/ML UR THC CANABINOIDS QL SQN (test code=CANU) NEGATIVE NEGATIVE CUTOFF >/=20 NG/ML UR AMPHETAMINE QL SQN (test code=AMPHU) NEGATIVE NEGATIVE CUTOFF >/=500 NG/ML UR BARBITURATE QUAL (test code=BARBQLU) NEGATIVE NEGATIVE CUTOFF >/=200 NG/ML UR BENZODIAZEPINE (test code=BENZU) NEGATIVE NEGATIVE CUTOFF >/=200 NG/ML UR OPIATES QUAL (test code=OPIAQLU) NEGATIVE UR PHENCYCLIDINE (PCP) (test code=PHENCU) NEGATIVE NEGATIVE CUTOFF >/=25 NG/ML DRUGS OF ABUSE [id number] 21:48:00* Test Item Value Reference Range Comments TRICYCLICS QL SQN (test code=TRIUR) NEGATIVE NEG TEST PERFORMED MANUALLY USING Airseed RAPIDTEST TCA.CUTOFF >/=1000 NG/ML A Positive drug screen result provides only a "PreliminaryPositive" test result.If a confirmation of positive result is necessary, a morespecific confirmatory test must be ordered by the physician. Drug screens are performed for medical (i.e. treatment)purposes only. Unconfirmed screening results must not beused for non-medical purposes (e.g employment testing). UR COCAINE (test code=COCAU) NEGATIVE UR THC CANABINOIDS QL SQN (test code=CANU) NEGATIVE UR AMPHETAMINE QL SQN (test code=AMPHU) NEGATIVE UR BARBITURATE QUAL (test code=BARBQLU) NEGATIVE UR BENZODIAZEPINE (test code=BENZU) NEGATIVE UR OPIATES QUAL (test code=OPIAQLU) NEGATIVE UR PHENCYCLIDINE (PCP) (test code=PHENCU) NEGATIVE [id number] 20:41:00* Test Item Value Reference Range Comments GLUBED (test code=GLUBED) 161 MG/DL 74-106 [id number] 17:21:00* Test Item Value Reference Range Comments GLUBED (test code=GLUBED) 98 MG/DL 74-106 - DUP EXTRACRANIAL [id number] 13:47:00 [place]: St: ADM Name: Gayla SAHAELEAZAR [facility] : [birth year] 61 Age/S: 58/M [address] Unit #: [id number] Loc: [address] [place] [address] Phys: Belem Castorena DO Acct: [id number] Dis Date: Status: ADM IN PHONE #: [phone] Exam Date: 12/29/2018 6268 FAX #: [phone] Reason: CVA EXAMS: CPT CODE: [id number] DUP EXTRACRANIAL ARIELA [id number] EXAM: CAROTID DOPPLER INDICATION: CVA COMPARISON: CT head dated December 28, 2018 TECHNIQUE: Grayscale, color Doppler, and duplex sonography of the extracranial carotid vessels was performed. FINDINGS: Right side: Plaque: None Peak systolic velocities (cm/sec): CCA: 98 ICA: 105 ICA/CCA ratio: 1.1 Vertebral artery: Antegrade Left side: Plaque: None Peak systolic velocities (cm/sec): CCA: 118 ICA: 90 ICA/CCA ratio: 0.8 Vertebral artery: An tegrade IMPRESSION: Normal study. No evidence of hemody namically significant (greater than 50%) stenosis. L OCATION: A1 at 0238 Reported and signed by: Paola Pack MD CC: Technologist: KAYKAY EL Date/Time/By: 2018 (7845) : By: 16 PAGE 1 Signed Repo rt [place]: St: ADM Name: ELEAZAR RICE : 1960 Age/S: 58/M [address] Unit #: [id number] Loc: [address] [place] [address] Phys: Belem Castorena DO Acct: [id number] Dis Date: Status: ADM IN PHONE #: [phone] Exam Date: 12/29/2018 1335 FAX #: [phone] Reason: CVA EXAMS: CPT CODE: [id number] DUP EXTRACRANIAL ARIELA [id number] < Continued> Orig Print D/T: S: 12/29/2018 (4361) PAGE 2 Signed Report [id number] 12:38:00* Test Item Value Reference Range Comments GLUBED (test code=GLUBED) 87 MG/DL 74-106 [id number] 12:37:00* Test Item Value Reference Range Comments GLUBED (test code=GLUBED) 76 MG/DL 74-106 - MRI BRAIN W/O [id number] 09:04:00 [place]: St: ADM Name: ELEAZAR GRANDA [facility] : [birth year] 61 Age/S: 58/M [address] Unit #: [id number] Loc: [address] [address] Phys: Belem Castorena DO Acct: [id number] Dis Date: Status: ADM IN PHONE #: [phone] Exam Date: 12/29/2018 08 FAX #: [phone] Reason: LEFT HEMIPARESIS EXAMS: CPT CODE: [id number] MRI BRAIN W/O CONTRAST [id number] EXAM: MRI BRAIN WITHOUT CONTRAST INDICATION: LEFT HEMIPARESIS COMPARISON: CT head dated December 28, 2018 TECHNIQUE: Multiplanar, multisequence MRI of the brain was obtained without administration of intravenous contrast. IV contrast: None FINDINGS: No restricted diffusion is iden tified to suggest acute ischemia. There are areas of hyperintense T2 changes within the periventricular white matter consistent with chronic microvascular ischemic changes. The ventricles are normal in size and sh ape with no midline shift or mass effect. The basal cisterns are patent. The posterior fossa and 4th ventricle are normal. No intracranial hemorr danny. Intracranial flow voids are normal. The parana declan sinuses and mastoid air cells are clear. No calvarial lesions are onofre ntified. There is hyperintense T1 and T2 material noted within the bilate ral globes likely representing hemorrhage and possibly retinal detachments . The orbits are unremarkable. IMPRESSION: No acute int racranial abnormality. No acute infarct. Mild chronic microvascular isc hemic changes. Abnormal signal within the bilateral globes likely repres enting hemorrhage and possibly retinal detachments. Ophthalmology consultation is recommended. LOCATION: A 1 Elec tronically Signed by Paola Pack MD on 12/29/2018 at 0904 Reported and signed by: Paola Pack MD CC: Technologist: Rebekah San Trnscrd Date/Time/By: 12/29/2018 (0904) : By: [email or web address] PAGE 1 Signed Report [place]: St: ADM------- Name: ELEAZAR RICE [facility] : [birth year] Age/S: 58/M [address] Unit #: [id number] Loc: [address] [place] [address] Phys: Belem Castorena DO Acct: [id number] Dis Date: Status: ADM IN PHONE #: [phone] Exam Date: 12/29/2018826 FAX #: [phone] Reason: LEFT HEMIPARESIS EXAMS: CPT CODE: [id number] MRI BRAIN W/O CONTRAST 00321 <Continued> Orig Print D/T: S: 12/29/2018 (0907) PAGE 2 Signed Report AB HEPATITIS B [id number] 03:21:00* Test Item Value Reference Range Comments AB HEPATITIS B SURFACE (test code=HBSAB) POSITIVE CLINICAL INTERPRETATION OF IMMUNE STATUSNEGATIVE: Inconsistent with immunity to HBV infection, less than 5.0 mIU/mL POSITIVE: Consistent with immunity to HBV infection, greater than 10.0 mIU/mL HEP B CORE AB [id number] 03:21:00* Test Item Value Reference Range Comments HEP B CORE AB TOTAL (test code=HBCAB) NEGATIVE T4 (THYROXINE)2018-12-29 03:04:00* Test Item Value Reference Range Comments T4 (THYROXINE) (test code=T4) 8.170 ug/dL 5.53-11.0 THYROID STIMULATING [id number] 03:04:00* Test Item Value Reference Range Comments THYROID STIMULATING HORMONE (test code=TSH) 4.350 mIU/L 0.465-4.68 A positive bias may occur for patients taking BIOTINsupplements. AG HEPATITIS B [id number] 03:03:00* Test Item Value Reference Range Comments AG HEPATITIS B SURFACE (test code=HBSAG) NEGATIVE NEGATIVE T4 (THYROXINE)2018-12-29 02:51:00* Test Item Value Reference Range Comments T4 (THYROXINE) (test code=T4) 8.170 ug/dL 5.53-11.0 THYROID STIMULATING [id number] 02:51:00* Test Item Value Reference Range Comments THYROID STIMULATING HORMONE (test code=TSH) mIU/L 0.465-4.68 HGBA1C - GLYCOSYLATED [id number] 02:37:00* Test Item Value Reference Range Comments GLYCOSYLATED HEMOGLOBIN (HA1C) (test code=GLYHGB) 7.5 % 0-5.9 Current guidelines recommend a treatment goal of <7% fordiabetic patients. A1c may be overestimated in diabeticpatients exhibiting poor control and who are alsoheterozygous or homozygous for HgbS or HgbC. Totalglycohemoglobin is a better indicator of diabetic control inpatients with these hemoglobin variants. [id number] 02:36:00* Test Item Value Reference Range Comments AMMONIA (test code=AMM) < 9 umol/L 9-30 [id number] 21:16:00* Test Item Value Reference Range Comments GLUBED (test code=GLUBED) 88 MG/DL 74-106 [id number] 18:03:00* Test Item Value Reference Range Comments GLUBED (test code=GLUBED) 98 MG/DL 74-106 - XR CHEST 1 [id number] 14:57:00 [place]: St: REG Name: ELEAZAR GRANDA [facility] : [birth year] Age/S: 58/M [address] Unit #: [id number] Loc: [place] [address] Phys: Dru Pulido MD Acct: [id number] Dis Date: Status: REG ER PHONE #: [phone] Exam Date: 12/28/20185 FAX #: [phone] Reason: Code Stroke EXAMS: CPT CODE: [id number] XR CHEST 1 V 45223 EXAM: Portable chest x-ray Dictation location: C3 COMPARISON: None ANISHA CATION: Code Stroke DISCUSSION: Apical lordotic positioning is noted. Mild central vascular fullness is noted. No consolidation or p leural effusion is seen. The cardiac silhouette is at the upper limits of normal in size. No acute bony abnormalities are identified. IMPRESSION: Apical lordotic positioning. Upper limits of normal car diac silhouette size with mild central vascular fullness. No evidence o f pneumonia. at 9171 Reported and signed by: Harvye Geiger MD CC: Rashaad chnologist: ARETHA GOODSON RT (R) Trnscrd Date/ Time/By: 12/28/2018 (9305) : By: Anand.BC0 PAGE 1 Signed Report [place]: St: REG Name: ELEAZAR RICE [facility] : 1960 Age/S: 58/M [address] Unit #: [id number] Loc: [place] [address] Phys: Dru Pulido MD Acct: [id number] Dis Date: Status: REG ER PHONE #: [phone] Exam Date: 12/28/2018 1425 FAX #: [phone] Reason: Code Stroke EXAMS: CPT CODE: [id number] XR CHEST 1 V 90299 <Continued> Orig Print D/T: S: 12/28/2018 (1500) PAGE 2 Signed Report TROPONIN I [id number] 13:46:00* Test Item Value Reference Range Comments TROPONIN I RAPID (test code=TROPIRAP) 0.02 ng/mL 0.00-0.079 ISTAT TROPONIN I CRITERIA0.00-0.08 ng/mL - Negative>0.08 ng/mL - Positive The use of serial sampling and testing protocol is arecommended practice.An elevated troponin level alone is often not sufficient fordiagnosis of myocardial infarction. Troponin results obtained by different assays may vary.Evaluation of the extent of myocardial damage based onincrease of troponin would be valid only if similarmethodology is used. CHEMISTRY 8 [id number] 13:44:00* Test Item Value Reference Range Comments TOTAL CO2 CONTENT (test code=TCO2) mmol/L 22-30 ISTAT-SODIUM (test code=NAP) mmol/L 137-145 ISTAT-POTASSIUM (test code=KP) mmol/L 3.4-5.0 ISTAT-CHLORIDE (test code=CLP) mmol/L 98-107 ISTAT-ANION GAP (test code=GAPP) mmol/L 10-20 GLUCOSE ABG (test code=GLUP) MG/DL 74-106 ISTAT-BUN (test code=BUNP) mg/dL 7.0-17.0 BEDSIDE CREATININE (test code=CREATBED) mg/dL 0.66-1.25 GLOMERULAR FILTRATION RATE POC (test code=GFRBED) 4 56-130 CHEMISTRY 8 [id number] 13:44:00* Test Item Value Reference Range Comments IONIZED CALCIUM (test code=CAIABG) 1.17 mmol/L 1.12-1.32 TOTAL CO2 CONTENT (test code=TCO2) 25.0 mmol/L 22-30 ISTAT-SODIUM (test code=NAP) 132 mmol/L 137-145 ISTAT-POTASSIUM (test code=KP) 6.4 mmol/L 3.4-5.0 ISTAT-CHLORIDE (test code=CLP) 98 mmol/L 98-107 ISTAT-ANION GAP (test code=GAPP) 16 mmol/L 10-20 GLUCOSE ABG (test code=GLUP) 82 MG/DL 74-106 ISTAT-BUN (test code=BUNP) 86 mg/dL 7.0-17.0 BEDSIDE CREATININE (test code=CREATBED) 11.9 mg/dL 0.66-1.25 GLOMERULAR FILTRATION RATE POC (test code=GFRBED) 4 56-130 PROTHROMBIN [id number] 13:40:00* Test Item Value Reference Range Comments PROTHROMBIN TIME PATIENT (test code=PTP) 12.6 SECONDS 9.2-12.1 INTERNATIONAL NORMAL RATIO (test code=INR) 1.1 Critical Value reported toFirst Name:NASH RAMOS CASTRO Last Name:[id number] READ BACK AND VERIFIEDby MELISSA, on 12/28/18, @ 0740.The INR is to be used only for monitoring ORAL ANTICOAGULANTTHERAPY. Indication INR Value1. Prophylaxis/treatment of: Venous Thrombosis, Pulmonary Embolism 2.0 - 3.02. Prevention of systemic embolism from: Tissue heart valves 2.0 - 3.0 Acute myocardial infarction (to present systemic embolism)* 2.0 - 3.0 Valvular heart disease 2.0 - 3.0 Atrial fibrillation 2.0 - 3.03. Mechanical prosthetic valves (high risk) 2.5 - 3.5 * If oral anticoagulant therapy is elected to pre ventrecurrent myocardial infarction, an INR of 2.5-3.5 isrecommended, consistent with Food and Drug Administrationrecommendations. IS PATIENT ON ANTICOAGULANTS ? nTHROMBOPLASTIN TIME [id number] 13:40:00* Test Item Value Reference Range Comments THROMBOPLASTIN TIME PARTIAL (test code=PTT) 28.6 SECONDS 23.4-37.0 Therapeutic Range for Heparin EFFECTIVE 11/27/12 Heparin IU/mL aPTT Seconds0.3 64.30.7 88.8 IS PATIENT ON ANTICOAGULANTS ? nCBC W/AUTO [id number] 13:39:00* Test Item Value Reference Range Comments WHITE BLOOD CELL (test code=WBC) 7.9 x10 3/uL 5.0-12.0 RED BLOOD CELL (test code=RBC) 3.69 x10 6/uL 4.70-6.10 HEMOGLOBIN (test code=HGB) 10.8 g/dL 14.0-18.0 HEMATOCRIT (test code=HCT) 32.2 % 37.0-49.0 MEAN CELL VOLUME (test code=MCV) 87 fL 80-94 MEAN CELL HGB (test code=MCH) 29.3 pg 27-31 MEAN CELL HGB CONCENTRATION (test code=MCHC) 33.5 g/dL 33-37 RED CELL DISTRIBUTION WIDTH (test code=RDW) 13.6 % 11.5-15.5 PLATELET COUNT (test code=PLT) 168 x10 3/uL 130-400 MEAN PLATELET VOLUME (test code=MPV) 9.7 fL 9.4-16.4 NEUTROPHIL % (test code=NT%) 76.8 % 43-65 IMMATURE GRANULOCYTE % (test code=IG%) 0.3 % 0.0-2.0 LYMPHOCYTE % (test code=LY%) 13.6 % 20.5-45.5 MONOCYTE % (test code=MO%) 6.6 % 5.5-11.7 EOSINOPHIL % (test code=EO%) 2.2 % 0.9-2.9 BASOPHIL % (test code=BA%) 0.5 % 0.2-1.0 NUCLEATED RBC % (test code=NRBC%) 0.0 % 0-1.0 NEUTROPHIL # (test code=NT#) 6.05 x10 3/uL 2.2-4.8 IMMATURE GRANULOCYTE # (test code=IG#) 0.02 x10 3/uL 0-0.03 LYMPHOCYTE # (test code=LY#) 1.07 x10 3/uL 1.3-2.9 MONOCYTE # (test code=MO#) 0.52 x10 3/uL 0.3-0.8 EOSINOPHIL # (test code=EO#) 0.17 x10 3/uL 0.0-0.2 BASOPHIL # (test code=BA#) 0.04 x10 3/uL 0.0-0.1 PROTHROMBIN [id number] 13:39:00* Test Item Value Reference Range Comments PROTHROMBIN TIME PATIENT (test code=PTP) 12.6 SECONDS 9.2-12.1 INTERNATIONAL NORMAL RATIO (test code=INR) 1.1 The INR is to be used only for monitoring ORAL ANTICOAGULANTTHERAPY. Indication INR Value1. Prophylaxis/treatment of: Venous Thrombosis, Pulmonary Embolism 2.0 - 3.02. Prevention of systemic embolism from: Tissue heart valves 2.0 - 3.0 Acute myocardial infarction (to present systemic embolism)* 2.0 - 3.0 Valvular heart disease 2.0 - 3.0 Atrial fibrillation 2.0 - 3.03. Mechanical prosthetic valves (high risk) 2.5 - 3.5 * If oral anticoagulant therapy is elected to preventrecurrent myocardial infarction, an INR of 2.5-3.5 isrecommended, consistent with Food and Drug Administrationrecommendations. IS PATIENT ON ANTICOAGULANTS ? nTHROMBOPLASTIN TIME [id number] 13:39:00* Test Item Value Reference Range Comments THROMBOPLASTIN TIME PARTIAL (test code=PTT) 28.6 SECONDS 23.4-37.0 Therapeutic Range for Heparin EFFECTIVE 11/27/12 Heparin IU/mL aPTT Seconds0.3 64.30.7 88.8 IS PATIENT ON ANTICOAGULANTS ? n- CT HEAD/BRAIN W/O [id number] 13:39:00 [place]: St: PRE Name: ELEAZAR PIKE [facility] : 1 Age/S: 58/M [address] Unit: [id number] Loc: [place] [address] Phys: Dru Pulido MD Acct: [id number] Dis Date: Status: PRE ER PHONE #: [phone] Exam Date: 12/28/2018 1758 FAX #: [phone] Reason: LEFT SIDED WEAKNESS EXAMS: CPT CODE: [id number] CT HEAD/BRAIN W/O CONT 17434 EXAM: CT head without cont rast Dictation location: C3 INDICATION: Left-sided weakness COMPARISON: None TECHNIQUE: Axial images of the brain were performed with 5 mm slices. Images were reviewed in brain and bone windows. Coronal and sagittal reformatted images were performed. DISCUSSION: No intracranial mass, hemorrhage, hydro cephalus, midline shift, or herniation is seen. No acute cortical based at tenuation abnormality is seen. Cavernous carotid and right vertebral anca ry calcifications are noted. No calvarial fracture or scalp contusion is identified. There is nonspecific hyperdensity at the posterior right late ral aspect of the right globe, possibly a small vitreous hemorrhage. The visualized paranasal sinuses are unremarkable. IMPRESSION: 1. No acute intracranial abnormalities. 2. Nonspecific hyperd ensity at the posterior/lateral aspect of the right globe, possibly a sm all vitreous hemorrhage. Correlation with fundoscopy is suggested. Findings were discussed by phone with Dr. Pulido in the ER at 1:38 PM on 12/28/2018. FOR INTERNAL CARL NG PURPOSES ONLY RESULT CODE: CVRMD On e or more of the following dose reduction techniques were used: Automate d exposure control, adjustment of the mA and/or kV according to patient size, and/or utilization of iterative reconstruction technique. DLP: 717 mGy-cm CTDI: 36 mGy PAGE 1 Signed Repo rt (CONTINUED) [place]: St: PRE Name: ELEAZAR RICE [facility] : 1960 Age/S: 58/M [address] Unit: [id number] Loc: [place] [address] Phys: Dru Pulido MD Acct: [id number] Dis Date: Status: PRE ER PHONE #: [phone] Exam Date: 12/28/2018 1329 FAX #: [phone] Reason: LEFT SIDED WEAKNESS EXAMS: CPT CODE: [id number] CT HEAD/BRAIN W/O CONT 80831 < Continued> at 9518 Reported and signed by: Harvey Geiger MD CC: Technologist: ALICIA STRATTON; MIRANDA BENNETT Trnscrd Dt/Tm: 12/28/2018 (3398) [email or web address] Orig Print D/T: S: 12/28/2018 (1002 PAGE 2 Signed Report CULTURE, ANAEROBE [id number] 11:34:00FIRST DRAW=1 aerobic and 1 anerobic CultureSpecimen: BloodCollected: 01/08/2018 08:55 Status: Final Last Updated: 01/13/2018 11:33 (1) FIRST DRAW=1 aerobic and 1 anerobic Culture Culture Result (Final) (Final) No Growth After 5 Days CULTURE, [id number] 11:34:00FIRST DRAW=1 aerobic and 1 anerobic CultureSpecimen: BloodCollected: 01/08/2018 08:55 Status: Final Last Updated: 01/13/2018 11:33 (1) FIRST DRAW=1 aerobic and 1 anerobic Culture Culture Result (Final) (Final) No Growth After 5 Days CULTURE, [id number] 11:34:00To start 15mins after 1st culture SECOND DRAW=1 aerobic and 1 anerobic CultureSpecimen: BloodCollected: 01/08/2018 08:50 Status: Final Last Updated: 01/13/2018 11:33 (1) To start 15mins after 1st culture SECOND DRAW=1 aerobic and 1anerobic Culture Culture Result (Final) (Final) No Growth After 5 Days CULTURE, ANAEROBE [id number] 11:34:00To start 15mins after 1st culture SECOND DRAW=1 aerobic and 1 anerobic CultureSpecimen: BloodCollected: 01/08/2018 08:50 Status: Final Last Updated: 01/13/2018 11:33 (1) To start 15mins after 1st culture SECOND DRAW=1 aerobic and 1anerobic Culture Culture Result (Final) (Final) No Growth After 5 Days [id number] 05:05:00* Test Item Value Reference Range Comments Glucose (test code=GLU) 194 mg/dl 75-110 BUN (test code=BUN) 55.0 mg/dl 6.0-17.0 Creatinine (test code=CREA) 7.8 mg/dl 0.4-1.2 Sodium (test code=NA) 138 mmol/l 137-145 Potassium (test code=K) 4.3 mmol/l 3.5-5.0 Chloride (test code=CL) 98 mmol/l 98-107 CO2 (test code=CO2) 29 mmol/l 22-30 Calcium (test code=CALC) 8.0 mg/dl 8.4-10.2 T Protein (test code=TP) 6.1 gm/dl 5.1-8.7 Albumin (test code=ALB) 3.3 gm/dl 3.5-4.6 A/G Ratio (test code=AGRAT) 1.2 % 1.1-2.2 AST (SGOT) (test code=AST) 27 U/L 11-36 ALT (SGPT) (test code=ALT) 17 U/L 11-40 Alkaline Phos (test code=ALKP) 36 U/L 47-114 Total Bilirubin (test code=TBIL) 0.3 mg/dl 0.2-1.2 Globulin (test code=GLOBU) 2.8 gm/dl 2.3-3.5 Calcium, Corrected (test code=CALCCORR) 8.6 mg/dl 8.4-10.2 Various formulas exist for corrected serum calcium results, each yielding different values. This corrected result was based on the formula: Corrected Calcium=SerumCalcium + [0.8 * ( 4 - SerumAlbumin)] EGFR if (test code=EGFRAA) 9 mL/min/1.73m\\S\\2 EGFR if Non- (test code=EGFRNA) 8 mL/min/1.73m\\S\\2 Estimated Glomerular Filtration Rate (eGFR) Reference Intervals Decision Points for 18 years and older and average body mass: >=60 Does not exclude kidney disease. 30 - 59 Suggests moderate chronic kidney disease and indicates the need for further investigation including assessment of proteinuria and cardiovascular factors. < 30 Usually indicates a need for referral for assessment and management of chronic kidney failure. CBC WITH AUTO [id number] 05:04:00* Test Item Value Reference Range Comments WBC (test code=WBC) 8.71 10\\S\\3/ul 4.80-10.80 RBC (test code=RBC) 3.17 10\\S\\6/ul 4.70-6.10 Hemoglobin (test code=HGB) 9.6 gm/dl 14.0-18.0 Hematocrit (test code=HCT) 28.5 % 42.0-50.0 MCV (test code=MCV) 89.9 fL 80.0-94.0 MCH (test code=MCH) 30.3 pg 27.0-31.0 MCHC (test code=MCHC) 33.7 gm/dl 33.0-37.0 RDW (test code=RDWVC) 13.6 % 11.5-14.5 Platelet (test code=PLT) 215 10\\S\\3/ul 130-400 MPV (test code=MPV) 10.8 fL 7.4-10.4 "NOT MEASURED" RESULTS ARE DISPLAYED WHEN THE INSTRUMENT HAS A SUPPRESSED OR UNREPORTABLE RESULT. THIS WILL MOST OFTEN HAPPEN WITH THE MPV WHEN THERE IS AN ABNORMAL PLATELET DISTRIBUTION DUE TO A CR ITICAL LOW VALUE OR PLATELET CLUMPING. THE RDW MAY BE SUPPRESSED IF THERE ARE MULTIPLE PEAKS PRESENT ON THE RBC HISTOGRAM. IN THIS CASE, A MANUAL REVIEW OF THE SLIDE WILL BE PERFORMED, AND RBC MORPHOLOGY WILL BE NOTED ON THE REPORT. NE% (test code=NE) 59.0 % 42.0-75.0 LY% (test code=LY) 29.9 % 13.0-42.0 MO% (test code=MO) 8.4 % 4.0-14.0 EO% (test code=EO) 1.8 % 1.0-5.0 BA% (test code=BA) 0.6 % 0.0-3.0 IG% (test code=IG%) 0.3 % 0.0-0.4 XR CHEST AP/PA 1 [id number] 15:07:01Pt. in dialysis @ 1000.Procedure: XR CHEST AP/PA 1 VIEWOrder Date: 01/08/2018 9:29 AMOrdering Provider: CHAY Roblesinical Indication: AMSComparison: April 29, 2017Findings:Cardiac size is mildly enlarged.Pulmonary vasculature is normal.Mediastinal contour is normal.Aortic contour is normal.There is no consolidation or effusion.There is n o mass or pneumothorax.There is no evidence of active tuberculosis.There is no s keletal abnormality.Impression:1. No acute abnormality in the chest.2. Mild card iomegaly.3. Exam is otherwise negative.This final report was electronically sign ed by Dr Micky David MD 01/08/20183:00 PMDictated By: MICKY DAVIDDate: 0 01/08/2018 15:06HEP B SURFACE [id number] 11:03:00* Test Item Value Reference Range Comments Hep B Surface Ag (Signal Value) (test code=HBSAG.SV) <0.10 mIU/mL 0.00-1.00 HBsAg Signal Cutoff Interpretation Guide: < 1.00 Negative Specimen is presumed to be negative for HBsAg. >=1.00 and < 5.00 Reactive Specimen is reactive for HBsAg. Suggest confirmation by supplemental testing. > 5.00 Positive Specimen is positive for HBsAg. FT (test code=HBSAG) Negative (qualifier value) Negative with [id number] 10:00:00* Test Item Value Reference Range Comments Glucose (test code=GLU) 162 mg/dl 75-110 BUN (test code=BUN) 80.0 mg/dl 6.0-17.0 Creatinine (test code=CREA) 9.5 mg/dl 0.4-1.2 Sodium (test code=NA) 137 mmol/l 137-145 Potassium (test code=K) 4.4 mmol/l 3.5-5.0 Chloride (test code=CL) 100 mmol/l 98-107 CO2 (test code=CO2) 19 mmol/l 22-30 Calcium (test code=CALC) 8.2 mg/dl 8.4-10.2 T Protein (test code=TP) 6.1 gm/dl 5.1-8.7 Albumin (test code=ALB) 3.3 gm/dl 3.5-4.6 A/G Ratio (test code=AGRAT) 1.2 % 1.1-2.2 AST (SGOT) (test code=AST) 14 U/L 11-36 ALT (SGPT) (test code=ALT) 13 U/L 11-40 Alkaline Phos (test code=ALKP) 35 U/L 47-114 Total Bilirubin (test code=TBIL) 0.3 mg/dl 0.2-1.2 Globulin (test code=GLOBU) 2.8 gm/dl 2.3-3.5 Calcium, Corrected (test code=CALCCORR) 8.8 mg/dl 8.4-10.2 Various formulas exist for corrected serum calcium results, each yielding different values. This corrected result was based on the formula: Corrected Calcium=SerumCalcium + [0.8 * ( 4 - SerumAlbumin)] EGFR if (test code=EGFRAA) 7 mL/min/1.73m\\S\\2 EGFR if Non- (test code=EGFRNA) 6 mL/min/1.73m\\S\\2 Estimated Glomerular Filtration Rate (eGFR) Reference Intervals Decision Points for 18 years and older and average body mass: >=60 Does not exclude kidney disease. 30 - 59 Suggests moderate chronic kidney disease and indicates the need for further investigation including assessment of proteinuria and cardiovascular factors. < 30 Usually indicates a need for referral for assessment and management of chronic kidney failure. with dialysisC WITH AUTO [id number] 09:41:00* Test Item Value Reference Range Comments WBC (test code=WBC) 9.64 10\\S\\3/ul 4.80-10.80 RBC (test code=RBC) 2.79 10\\S\\6/ul 4.70-6.10 Hemoglobin (test code=HGB) 8.5 gm/dl 14.0-18.0 Hematocrit (test code=HCT) 25.2 % 42.0-50.0 MCV (test code=MCV) 90.3 fL 80.0-94.0 MCH (test code=MCH) 30.5 pg 27.0-31.0 MCHC (test code=MCHC) 33.7 gm/dl 33.0-37.0 RDW (test code=RDWVC) 13.9 % 11.5-14.5 Platelet (test code=PLT) 207 10\\S\\3/ul 130-400 MPV (test code=MPV) 11.1 fL 7.4-10.4 "NOT MEASURED" RESULTS ARE DISPLAYED WHEN THE INSTRUMENT HAS A SUPPRESSED OR UNREPORTABLE RESULT. THIS WILL MOST OFTEN HAPPEN WITH THE MPV WHEN THERE IS AN ABNORMAL PLATELET DISTRIBUTION DUE TO A CR ITICAL LOW VALUE OR PLATELET CLUMPING. THE RDW MAY BE SUPPRESSED IF THERE ARE MULTIPLE PEAKS PRESENT ON THE RBC HISTOGRAM. IN THIS CASE, A MANUAL REVIEW OF THE SLIDE WILL BE PERFORMED, AND RBC MORPHOLOGY WILL BE NOTED ON THE REPORT. NE% (test code=NE) 67.0 % 42.0-75.0 LY% (test code=LY) 25.1 % 13.0-42.0 MO% (test code=MO) 6.1 % 4.0-14.0 EO% (test code=EO) 1.1 % 1.0-5.0 BA% (test code=BA) 0.2 % 0.0-3.0 IG% (test code=IG%) 0.5 % 0.0-0.4 with dialysisT3 [id number] 05:46:00* Test Item Value Reference Range Comments T3, FREE (test code=FT3) 2 2-5 TSH (Ultra Sensitive)2018-01-08 05:46:00* Test Item Value Reference Range Comments TSH (test code=TSH) 2.69 mIU/L 0.47-4.68 FREE [id number] 05:46:00* Test Item Value Reference Range Comments Free T4 (test code=FT4) 0.96 ng/dl 0.78-2.19 [id number] 00:04:00* Test Item Value Reference Range Comments Magnesium (test code=MG) 2.3 mg/dl 1.6-2.3 PHOSPHOROUS, [id number] 00:04:00* Test Item Value Reference Range Comments Phosphorus (test code=PHOS) 5.9 mg/dl 2.5-4.5 PT AND [id number] 00:01:00* Test Item Value Reference Range Comments Protime (test code=PT) 10.6 seconds 9.0-11.9 INR (test code=INR) 1.0 0.9-1.1 INR results are intended ONLY to monitor Oral Anticoagulant therapy in stablized patients. The INR Therapeutic Range is 2.0 - 3.0 Patients with a mechanical heart, the INR Range is 2.5 - 3.5 [id number] 23:49:00* Test Item Value Reference Range Comments Glucose (test code=GLU) 112 mg/dl 75-110 BUN (test code=BUN) 75.0 mg/dl 6.0-17.0 Creatinine (test code=CREA) 9.7 mg/dl 0.4-1.2 Sodium (test code=NA) 139 mmol/l 137-145 Potassium (test code=K) 3.6 mmol/l 3.5-5.0 Chloride (test code=CL) 102 mmol/l 98-107 CO2 (test code=CO2) 20 mmol/l 22-30 Calcium (test code=CALC) 8.7 mg/dl 8.4-10.2 T Protein (test code=TP) 6.9 gm/dl 5.1-8.7 Albumin (test code=ALB) 3.8 gm/dl 3.5-4.6 A/G Ratio (test code=AGRAT) 1.2 % 1.1-2.2 AST (SGOT) (test code=AST) 20 U/L 11-36 ALT (SGPT) (test code=ALT) 19 U/L 11-40 Alkaline Phos (test code=ALKP) 42 U/L 47-114 Total Bilirubin (test code=TBIL) 0.4 mg/dl 0.2-1.2 Globulin (test code=GLOBU) 3.1 gm/dl 2.3-3.5 Calcium, Corrected (test code=CALCCORR) 8.9 mg/dl 8.4-10.2 Various formulas exist for corrected serum calcium results, each yielding different values. This corrected result was based on the formula: Corrected Calcium=SerumCalcium + [0.8 * ( 4 - SerumAlbumin)] EGFR if (test code=EGFRAA) 7 mL/min/1.73m\\S\\2 EGFR if Non- (test code=EGFRNA) 6 mL/min/1.73m\\S\\2 Estimated Glomerular Filtration Rate (eGFR) Reference Intervals Decision Points for 18 years and older and average body mass: >=60 Does not exclude kidney disease. 30 - 59 Suggests moderate chronic kidney disease and indicates the need for further investigation including assessment of proteinuria and cardiovascular factors. < 30 Usually indicates a need for referral for assessment and management of chronic kidney failure. CBC WITH AUTO [id number] 23:40:00* Test Item Value Reference Range Comments WBC (test code=WBC) 11.63 10\\S\\3/ul 4.80-10.80 RBC (test code=RBC) 3.13 10\\S\\6/ul 4.70-6.10 Hemoglobin (test code=HGB) 9.4 gm/dl 14.0-18.0 Hematocrit (test code=HCT) 27.8 % 42.0-50.0 MCV (test code=MCV) 88.8 fL 80.0-94.0 MCH (test code=MCH) 30.0 pg 27.0-31.0 MCHC (test code=MCHC) 33.8 gm/dl 33.0-37.0 RDW (test code=RDWVC) 13.6 % 11.5-14.5 Platelet (test code=PLT) 223 10\\S\\3/ul 130-400 MPV (test code=MPV) 10.8 fL 7.4-10.4 "NOT MEASURED" RESULTS ARE DISPLAYED WHEN THE INSTRUMENT HAS A SUPPRESSED OR UNREPORTABLE RESULT. THIS WILL MOST OFTEN HAPPEN WITH THE MPV WHEN THERE IS AN ABNORMAL PLATELET DISTRIBUTION DUE TO A CR ITICAL LOW VALUE OR PLATELET CLUMPING. THE RDW MAY BE SUPPRESSED IF THERE ARE MULTIPLE PEAKS PRESENT ON THE RBC HISTOGRAM. IN THIS CASE, A MANUAL REVIEW OF THE SLIDE WILL BE PERFORMED, AND RBC MORPHOLOGY WILL BE NOTED ON THE REPORT. NE% (test code=NE) 72.5 % 42.0-75.0 LY% (test code=LY) 18.5 % 13.0-42.0 MO% (test code=MO) 7.9 % 4.0-14.0 EO% (test code=EO) 0.4 % 1.0-5.0 BA% (test code=BA) 0.1 % 0.0-3.0 IG% (test code=IG%) 0.6 % 0.0-0.4 NRBC, Auto (test code=NRBC_AUTO) 0 /100WBC 0-2 [id number] 23:18:00* Test Item Value Reference Range Comments pH (ABG) (test code=BGPH) 7.327 7.350-7.450 pCO2(T) (test code=BGPCO2(T)) 36.2 mm Hg 35.0-45.0 pO2(T) (test code=BGPO2(T)) 112.0 mm Hg 80.0-100.0 sO2 (test code=BGSO2) 98.1 % 90.0-99.0 Na+ (test code=BGCNA+) 137.8 mmol/l 135.0-148.0 K+ (test code=BGCK+) 3.32 mmol/l 3.50-4.50 Ca2+ (test code=BGCCA2+) 1.130 mmol/l 1.120-1.320 Cl- (test code=BGCCL-) 99.4 mmol/l 98-107 tHb (test code=BGCTHB) 9.2 gm/dl 11.5-17.4 O2Hb (test code=DJBA5DG) >95.0 % 95.0-99.0 COHb (test code=BGFCOHB) <2.80 % 0.5-2.5 MetHB (test code=BGMETHB) <1.30 % 0.4-1.5 Gluc (test code=BGCGLU) 178.0 mg/dl 60.0-110.0 Lac (test code=BGCLAC) <1.60 mmol/l 1.0-1.7 Barometric Pressure (test code=BGBARO) 760.8 mm Hg 450.0-1000.0 BE(act) (test code=BGBEACT) -7 mmol/l HCO3 (test code=BGHCO3) 19 meq/L 22-26 ctCO2(B) (test code=BGCTCO2(B)) 18 mmol/l FIO2 (fO2(I) (test code=BGFIO2) 0.28 % Drawn By (test code=BGDRAWNBY) REYNALDO SHANE Collection Date (test code=BGDTCOL) 01/07/2018 Collection Time (test code=BGCTM) 23:16 Sample Site (test code=BGSAMPLESITE) R Radial Sample Type (test code=BGSAMPLETYPE) Arterial Allens Test (test code=BGALLEN) Acceptable Notified By (test code=BGNOTIFIEDBY) REYNALDO SHANE Notified Whom (test code=BGNOTIFIEDWHOM) NURSE Date Notified (test code=BGDTNOTIFIED) 01/07/2018 Time Notified (test code=BGTMNOTIFIED) 23:16 O2 Device (test code=[id number]) Nasal Cannula L/M (test code=BGL/M) 2.0 Instrument ID (test code=BGINSTRID) [id number] Reported By (test code=BGREPORTEDBY) REYNALDO SHANE [id number] 07:38:00* Test Item Value Reference Range Comments Glucose (test code=GLU) 113 mg/dl 75-110 BUN (test code=BUN) 80.0 mg/dl 6.0-17.0 Creatinine (test code=CREA) 8.6 mg/dl 0.4-1.2 Sodium (test code=NA) 144 mmol/l 137-145 Potassium (test code=K) 4.5 mmol/l 3.5-5.0 Chloride (test code=CL) 107 mmol/l 98-107 CO2 (test code=CO2) 23 mmol/l 22-30 Calcium (test code=CALC) 7.6 mg/dl 8.4-10.2 EGFR if (test code=EGFRAA) 8 mL/min/1.73m\\S\\2 EGFR if Non- (test code=EGFRNA) 7 mL/min/1.73m\\S\\2 Estimated Glomerular Filtration Rate (eGFR) Reference Intervals Decision Points for 18 years and older and average body mass: >=60 Does not exclude kidney disease. 30 - 59 Suggests moderate chronic kidney disease and indicates the need for further investigation including assessment of proteinuria and cardiovascular factors. < 30 Usually indicates a need for referral for assessment and management of chronic kidney failure. CBC WITH AUTO [id number] 07:18:00* Test Item Value Reference Range Comments WBC (test code=WBC) 6.39 10\\S\\3/ul 4.80-10.80 RBC (test code=RBC) 3.01 10\\S\\6/ul 4.70-6.10 Hemoglobin (test code=HGB) 8.6 gm/dl 14.0-18.0 Hematocrit (test code=HCT) 26.3 % 42.0-50.0 MCV (test code=MCV) 87.4 fL 80.0-94.0 MCH (test code=MCH) 28.6 pg 27.0-31.0 MCHC (test code=MCHC) 32.7 gm/dl 33.0-37.0 RDW (test code=RDWVC) 13.2 % 11.5-14.5 Platelet (test code=PLT) 240 10\\S\\3/ul 130-400 MPV (test code=MPV) 10.9 fL 7.4-10.4 "NOT MEASURED" RESULTS ARE DISPLAYED WHEN THE INSTRUMENT HAS A SUPPRESSED OR UNREPORTABLE RESULT. THIS WILL MOST OFTEN HAPPEN WITH THE MPV WHEN THERE IS AN ABNORMAL PLATELET DISTRIBUTION DUE TO A CR ITICAL LOW VALUE OR PLATELET CLUMPING. THE RDW MAY BE SUPPRESSED IF THERE ARE MULTIPLE PEAKS PRESENT ON THE RBC HISTOGRAM. IN THIS CASE, A MANUAL REVIEW OF THE SLIDE WILL BE PERFORMED, AND RBC MORPHOLOGY WILL BE NOTED ON THE REPORT. NE% (test code=NE) 53.2 % 42.0-75.0 LY% (test code=LY) 36.5 % 13.0-42.0 MO% (test code=MO) 5.6 % 4.0-14.0 EO% (test code=EO) 3.8 % 1.0-3.0 BA% (test code=BA) 0.6 % 1.0-3.0 IG% (test code=IG%) 0.3 % 0.0-0.4 CBC AUTO diffCULTURE, [id number] 06:36:00Specimen: Urine SpecimensCollected: 04/29/2017 11:32 Status: Final Last Updated: 05/01/2017 06:36 Culture Result (Final) (Final) No Growth After 48 Hours [facility] 2017-04-30 08:25:00* Test Item Value Reference Range Comments Glucose (test code=GLU) 104 mg/dl 75-110 BUN (test code=BUN) 78.0 mg/dl 6.0-17.0 Creatinine (test code=CREA) 8.4 mg/dl 0.4-1.2 Sodium (test code=NA) 145 mmol/l 137-145 Potassium (test code=K) 4.3 mmol/l 3.5-5.0 Chloride (test code=CL) 108 mmol/l 98-107 CO2 (test code=CO2) 23 mmol/l 22-30 Calcium (test code=CALC) 7.6 mg/dl 8.4-10.2 EGFR if (test code=EGFRAA) 9 mL/min/1.73m\\S\\2 EGFR if Non- (test code=EGFRNA) 7 mL/min/1.73m\\S\\2 Estimated Glomerular Filtration Rate (eGFR) Reference Intervals Decision Points for 18 years and older and average body mass: >=60 Does not exclude kidney disease. 30 - 59 Suggests moderate chronic kidney disease and indicates the need for further investigation including assessment of proteinuria and cardiovascular factors. < 30 Usually indicates a need for referral for assessment and management of chronic kidney failure. CBC WITH AUTO [id number] 07:48:00* Test Item Value Reference Range Comments WBC (test code=WBC) 6.62 10\\S\\3/ul 4.80-10.80 RBC (test code=RBC) 3.15 10\\S\\6/ul 4.70-6.10 Hemoglobin (test code=HGB) 8.9 gm/dl 14.0-18.0 Hematocrit (test code=HCT) 27.5 % 42.0-50.0 MCV (test code=MCV) 87.3 fL 80.0-94.0 MCH (test code=MCH) 28.3 pg 27.0-31.0 MCHC (test code=MCHC) 32.4 gm/dl 33.0-37.0 RDW (test code=RDWVC) 13.2 % 11.5-14.5 Platelet (test code=PLT) 217 10\\S\\3/ul 130-400 MPV (test code=MPV) 10.8 fL 7.4-10.4 "NOT MEASURED" RESULTS ARE DISPLAYED WHEN THE INSTRUMENT HAS A SUPPRESSED OR UNREPORTABLE RESULT. THIS WILL MOST OFTEN HAPPEN WITH THE MPV WHEN THERE IS AN ABNORMAL PLATELET DISTRIBUTION DUE TO A CR ITICAL LOW VALUE OR PLATELET CLUMPING. THE RDW MAY BE SUPPRESSED IF THERE ARE MULTIPLE PEAKS PRESENT ON THE RBC HISTOGRAM. IN THIS CASE, A MANUAL REVIEW OF THE SLIDE WILL BE PERFORMED, AND RBC MORPHOLOGY WILL BE NOTED ON THE REPORT. NE% (test code=NE) 48.8 % 42.0-75.0 LY% (test code=LY) 39.0 % 13.0-42.0 MO% (test code=MO) 8.0 % 4.0-14.0 EO% (test code=EO) 3.2 % 1.0-3.0 BA% (test code=BA) 0.8 % 1.0-3.0 IG% (test code=IG%) 0.2 % 0.0-0.4 URINALYSIS WITH [id number] 17:04:00* Test Item Value Reference Range Comments Color (test code=UCOLR) YELLOW Clarity (test code=UCLAR) CLEAR Glucose (test code=UGLUC) 100 NEGATIVE Bilirubin (test code=UBILI) NEGATIVE NEGATIVE Ketones (test code=UKET) NEGATIVE NEGATIVE Specific [place] (test code=USPGR) 1.015 1.005-1.030 Blood (test code=UBLD) SMALL NEGATIVE PH (test code=UPH) 6.5 4.5-8.0 Protein (test code=UPROT) 100 NEGATIVE Urobilinogen (test code=U UROB) 0.2 >0.2 Nitrite (test code=UNITR) NEGATIVE NEGATIVE Leukocyte Esterase (test code=ULEUK) NEGATIVE NEGATIVE WBC (test code=WBCUR) 0-5 0-5 RBC (test code=RBCUR) 0-5 0-5 Epithial Cells (test code=U EPI) 0-5 0-10 Bacteria (test code=UBACT) None Seen None Seen,Trace [id number] 15:07:00* Test Item Value Reference Range Comments Folic Acid (test code=FOLIC) 14.60 ng/ml 2.76-20.00 B12, [id number] 15:05:00* Test Item Value Reference Range Comments B12 (test code=B12) 909 pg/ml [id number] US RENAL & BLADDER (KIDNEYS)2017-04-29 13:25:55Procedure: US RENALExam Date: 04/29/2017 11:17 AMOrdering Provider: CHAY Roblesinical Indication: RENAL FAILUREComparison: NoneTechnique: Real-time ultrasonography was obtained over the kidneys and urinarybladder and solar manufacturer's representative images were recorded.Findings:The right kidney is normal in size and contour.Renal cortical thinning as well as increased echogenicity.1.6 cm Bosniak type II cyst within the superior pole with a thin echogeniccalcific septation.The left kidney is normal in size and contour.Renal cortical thinning as well as increased echogen icity.There are no masses, calculi, or hydronephrosis.There are no bladder calcu li, masses, or focal wall thickening.Impression:1. Findings compatible with medi chas renal disease without hydronephrosis.2. Bosniak type II cyst seen within the superior pole right kidney.This final report was electronically signed by Dr Craig Davis MD 04/29/20171:19 PMDictated By: JUAN DAVISDate: 13:25PTH INTACT (IH)2017-04-29 13:23:00* Test Item Value Reference Range Comments PTH, INTACT (test code=PTH) 633 10-65 TSH (Ultra Sensitive)2017-04-29 13:21:00* Test Item Value Reference Range Comments TSH (test code=TSH) 4.49 mIU/L 0.47-4.68 [id number] 13:21:00* Test Item Value Reference Range Comments Ferritin (test code=FERR) 275.0 ng/ml 17.0-464.0 GLYCOSALATED [id number] 12:47:00* Test Item Value Reference Range Comments Hemoglobin A1C (test code=GLYCO) 8.2 % 4.3-6.0 Mean Plasma Glucose (test code=MPG) 215 mg/dl 90-180 WHEN TEST RESULTS FOR A1C EXCEED 14.0, THE LINEAR LIMIT OF THE INSTRUMENT, THE CALCULATED RESULT FOR THE MEAN GLUCOSE IS NOT RELIABLE. [id number] 12:32:00* Test Item Value Reference Range Comments Glucose (test code=GLU) 123 mg/dl 75-110 BUN (test code=BUN) 76.0 mg/dl 6.0-17.0 Creatinine (test code=CREA) 8.3 mg/dl 0.4-1.2 Sodium (test code=NA) 146 mmol/l 137-145 Potassium (test code=K) 4.3 mmol/l 3.5-5.0 Chloride (test code=CL) 108 mmol/l 98-107 CO2 (test code=CO2) 25 mmol/l 22-30 Calcium (test code=CALC) 7.3 mg/dl 8.4-10.2 T Protein (test code=TP) 7.0 gm/dl 5.1-8.7 Albumin (test code=ALB) 3.6 gm/dl 3.5-4.6 A/G Ratio (test code=AGRAT) 1.1 % 1.1-2.2 AST (SGOT) (test code=AST) 28 U/L 11-36 ALT (SGPT) (test code=ALT) 26 U/L 11-40 Alkaline Phos (test code=ALKP) 72 U/L 47-114 Total Bilirubin (test code=TBIL) 0.5 mg/dl 0.2-1.2 Globulin (test code=GLOBU) 3.4 gm/dl 2.3-3.5 Calcium, Corrected (test code=CALCCORR) 7.6 mg/dl 8.4-10.2 Various formulas exist for corrected serum calcium results, each yielding different values. This corrected result was based on the formula: Corrected Calcium=SerumCalcium + [0.8 * ( 4 - SerumAlbumin)] EGFR if (test code=EGFRAA) 9 mL/min/1.73m\\S\\2 EGFR if Non- (test code=EGFRNA) 7 mL/min/1.73m\\S\\2 Estimated Glomerular Filtration Rate (eGFR) Reference Intervals Decision Points for 18 years and older and average body mass: >=60 Does not exclude kidney disease. 30 - 59 Suggests moderate chronic kidney disease and indicates the need for further investigation including assessment of proteinuria and cardiovascular factors. < 30 Usually indicates a need for referral for assessment and management of chronic kidney failure. [id number] 12:32:00* Test Item Value Reference Range Comments Magnesium (test code=MG) 1.7 mg/dl 1.6-2.3 IRON, TOTAL(Serum)2017-04-29 12:32:00* Test Item Value Reference Range Comments Iron (test code=FETOT) 31 ug/dl 20-149 TOTAL IRON BINDING CAPACITY (TIBC)2017-04-29 12:32:00* Test Item Value Reference Range Comments TIBC (test code=TIBC) 259 ug/dl 178-500 IRON [id number] 12:32:00* Test Item Value Reference Range Comments Iron (test code=FETOT) 31 ug/dl 20-149 TIBC (test code=TIBC) 264 ug/dl 178-500 Iron Saturation (test code=FESAT) 12 % 16-62 PHOSPHOROUS, [id number] 12:32:00* Test Item Value Reference Range Comments Phosphorus (test code=PHOS) 5.9 mg/dl 2.5-4.5 XR CHEST 2 PA [id number] 12:31:45Procedure: XR CHEST 2 PA LATERALExam date: 04/29/2017 11:18 AMOrdering Provider: CHAY HERRINGIClinical Indication: R/O TB, renal failureComparison: April 29, 2013Findings:Mild cardiomegaly.Mild diffuse interstitial airspace opacities suggestive of volume overload.No pleural effusion or pneumothorax. Osseous structures are nonacute.No evidence of active tuberculosis.Impression:1. Findings of mild interstitial pulmonary edema.2. Mild cardiomegaly.This final report was electronically signed by Dr Juan Davis MD 04/29/201712:25 PMDictated By: JUAN DAVISDate: 04/29/2017 12:31PT AND [id number] 12:03:00* Test Item Value Reference Range Comments Protime (test code=PT) 10.7 seconds 9.0-11.9 INR (test code=INR) 1.0 0.9-1.1 INR results are intended ONLY to monitor Oral Anticoagulant therapy in stablized patients. The INR Therapeutic Range is 2.0 - 3.0 Patients with a mechanical heart, the INR Range is 2.5 - 3.5 [id number] 12:03:00* Test Item Value Reference Range Comments aPTT (test code=PTT) 31.5 seconds 23.0-33.0 CBC WITH AUTO [id number] 11:57:00* Test Item Value Reference Range Comments WBC (test code=WBC) 8.20 10\\S\\3/ul 4.80-10.80 RBC (test code=RBC) 3.12 10\\S\\6/ul 4.70-6.10 Hemoglobin (test code=HGB) 8.9 gm/dl 14.0-18.0 Hematocrit (test code=HCT) 27.4 % 42.0-50.0 MCV (test code=MCV) 87.8 fL 80.0-94.0 MCH (test code=MCH) 28.5 pg 27.0-31.0 MCHC (test code=MCHC) 32.5 gm/dl 33.0-37.0 RDW (test code=RDWVC) 13.5 % 11.5-14.5 Platelet (test code=PLT) 224 10\\S\\3/ul 130-400 MPV (test code=MPV) 10.7 fL 7.4-10.4 "NOT MEASURED" RESULTS ARE DISPLAYED WHEN THE INSTRUMENT HAS A SUPPRESSED OR UNREPORTABLE RESULT. THIS WILL MOST OFTEN HAPPEN WITH THE MPV WHEN THERE IS AN ABNORMAL PLATELET DISTRIBUTION DUE TO A CR ITICAL LOW VALUE OR PLATELET CLUMPING. THE RDW MAY BE SUPPRESSED IF THERE ARE MULTIPLE PEAKS PRESENT ON THE RBC HISTOGRAM. IN THIS CASE, A MANUAL REVIEW OF THE SLIDE WILL BE PERFORMED, AND RBC MORPHOLOGY WILL BE NOTED ON THE REPORT. NE% (test code=NE) 67.7 % 42.0-75.0 LY% (test code=LY) 20.2 % 13.0-42.0 MO% (test code=MO) 8.3 % 4.0-14.0 EO% (test code=EO) 2.7 % 1.0-3.0 BA% (test code=BA) 0.7 % 1.0-3.0 IG% (test code=IG%) 0.4 % 0.0-0.4
--- OUTSIDE RECORDS SUMMARY | 2019-03-18 18:25 | XMS REPORT | Continuity of Care Document ---
Author Author [facility] Organization [facility] Address [address] [address] ;ext= Care Team Providers Care Shank Pinner Name Role Phone ELEAZAR WADSWORTH Admphys Unavailable CHAY DELUNA Attphys Unavailable TONI CASANOVA CP MIRIAM KLINE CP Hospital Admission Diagnosis Code Admission Diagnosis Date 392766306 Altered mental status Social History Element Description Code Description Smoking Status Code System Start Date End Date Smoking Status 465281569 Never smoker SNOMED-CT Problems Code Code System Problem Name Start Date End Date Status 476869213 SNOMED-CT Altered mental status 01/07/2018 Active 20314223 SNOMED-CT Diabetes mellitus type 2 01/07/2018 Active 60550604 SNOMED-CT Hypertensive disorder Unknown Unknown Active 655950835 SNOMED-CT Neuropathy Unknown Unknown Active 34728642 SNOMED-CT Congestive heart failure (disorder) Unknown Unknown Active 9705739 SNOMED-CT Diabetic retinopathy Unknown Unknown Active 61203901 SNOMED-CT Diabetes mellitus Unknown Unknown Active 101416651 SNOMED-CT Chronic renal impairment Unknown Active 807114846 SNOMED-CT Deafness of right ear Unknown Active 67413470 SNOMED-CT Legal blindness Unknown Active Medications RxNorm Medication Dose Route Instructions Indications Start Date End Date Status 75390 gabapentin 400 milligram Oral orally 3 times per day Active 529202 Hydralazine Hydrochloride 25 MG Oral Tablet 25 milligram Oral orally 3 times per day Active 281 Acyclovir 800 milligram milligram Oral orally 3 times per day No Longer Active 517324 Amlodipine 10 MG Oral Tablet 10 MG ORAL ORAL ONCE A DAY No Longer Active 951564 Amlodipine 10 MG Oral Tablet 10 milligram Oral orally every day No Longer Active 120863 carvedilol 3.125 MG Oral Tablet 6.25 MG ORAL ORAL TWICE A DAY No Longer Active 600155 Furosemide 40 MG Oral Tablet 20 MG ORAL ORAL ONCE A DAY No Longer Active 20643 gabapentin 400 milligram Oral orally 3 t No Longer Active 731578 Insulin, Aspart Protamine, Human 25 unit Subcutaneous subcutaneously every day AM (administer 30-60 minutes before breakfast) No Longer Active 230763 Insulin, Aspart Protamine, Human 25 unit Subcutaneous subcutaneously every day PM (administer 30-60 minutes before breakfast) No Longer Active lipo-flavonoid plus 200mg-100mg Oral orally 3 times per day take 2 tablets No Longer Active 6809 Metformin 1000 milligram Oral orally 2 times per day No Longer Active 8640 Prednisone 5 milligram milligram Oral orally every day (administer with food or milk;) No Longer Active Allergies * No Known Allergies Results Laboratory Results Order: CBC PLATELET AUTO DIFF LOINC Test Result Flag Range Unit Date 1Leukocytes^^corrected for nucleated erythrocytes:NCnc:Pt:Bld:Qn:Automated count 8.71 4.80-10.80 10^3/ul 01/09/2018 04:35 789-8 1Erythrocytes:NCnc:Pt:Bld:Qn:Automated count 3.17 L 4.70-6.10 10^6/ul 01/09/2018 04:35 718-7 1Hemoglobin:MCnc:Pt:Bld:Qn 9.6 L 14.0-18.0 gm/dl 01/09/2018 04:35 4544-3 1Hematocrit:VFr:Pt:Bld:Qn:Automated count 28.5 L 42.0-50.0 % 01/09/2018 04:35 787-2 1Erythrocyte mean corpuscular volume:EntVol:Pt:RBC:Qn:Automated count 89.9 80.0-94.0 fL 01/09/2018 04:35 785-6 1Erythrocyte mean corpuscular hemoglobin:EntMass:Pt:RBC:Qn:Automated count 30.3 27.0-31.0 pg 01/09/2018 04:35 786-4 1Erythrocyte mean corpuscular hemoglobin concentration:MCnc:Pt:RBC:Qn:Automated count 33.7 33.0-37.0 gm/dl 01/09/2018 04:35 788-0 1Erythrocyte distribution width:Ratio:Pt:RBC:Qn:Automated count 13.6 11.5-14.5 % 01/09/2018 04:35 777-3 1Platelets:NCnc:Pt:Bld:Qn:Automated count 215 130-400 10^3/ul 01/09/2018 04:35 80909-4 1Platelet mean volume:EntVol:Pt:Bld:Qn:Automated count 10.8 A 7.4-10.4 fL 01/09/2018 04:35 Note: 'NOT MEASURED' RESULTS ARE DISPLAYED WHEN [...] ON THE REPORT. 770-8 1Neutrophils/100 leukocytes:NFr:Pt:Bld:Qn:Automated count 59 42.0-75.0 % 01/09/2018 04:35 736-9 1Lymphocytes/100 leukocytes:NFr:Pt:Bld:Qn:Automated count 29.9 13.0-42.0 % 01/09/2018 04:35 5905-5 1Monocytes/100 leukocytes:NFr:Pt:Bld:Qn:Automated count 8.4 4.0-14.0 % 01/09/2018 04:35 713-8 1Eosinophils/100 leukocytes:NFr:Pt:Bld:Qn:Automated count 1.8 1.0-5.0 % 01/09/2018 04:35 706-2 1Basophils/100 leukocytes:NFr:Pt:Bld:Qn:Automated count 0.6 0.0-3.0 % 01/09/2018 04:35 1IG% 0.3 0.0-0.4 % 01/09/2018 04:35 * Performing Lab Footnotes:* 1[facility] - [id number] - [address] [facility] [address] - [place] [address] [facility] - MD: DIRECTOR KENNY BROOKS Order: CMP COMPREHENSIVE METABOLIC PANEL LOINC Test Result Flag Range Unit Date 1Glucose 194 H 75-110 mg/dl 01/09/2018 04:35 1BUN 55 H 6.0-17.0 mg/dl 01/09/2018 04:35 1Creatinine 7.8 H 0.4-1.2 mg/dl 01/09/2018 04:35 1Sodium 138 137-145 mmol/l 01/09/2018 04:35 1Potassium 4.3 3.5-5.0 mmol/l 01/09/2018 04:35 1Chloride 98 98-107 mmol/l 01/09/2018 04:35 1CO2 29 22-30 mmol/l 01/09/2018 04:35 1Calcium 8 L 8.4-10.2 mg/dl 01/09/2018 04:35 1T Protein 6.1 5.1-8.7 gm/dl 01/09/2018 04:35 1Albumin 3.3 L 3.5-4.6 gm/dl 01/09/2018 04:35 1A/G Ratio 1.2 1.1-2.2 % 01/09/2018 04:35 1AST (SGOT) 27 11-36 U/L 01/09/2018 04:35 1ALT (SGPT) 17 11-40 U/L 01/09/2018 04:35 1Alkaline Phos 36 L 47-114 U/L 01/09/2018 04:35 1Total Bilirubin 0.3 0.2-1.2 mg/dl 01/09/2018 04:35 1Globulin 2.8 2.3-3.5 gm/dl 01/09/2018 04:35 1Calcium, Corrected 8.6 8.4-10.2 mg/dl 01/09/2018 04:35 Note: Various formulas exist for corrected serum calcium results, each yielding different values. This corrected result was based on the formula: Corrected Calcium=SerumCalcium + [0.8 * ( 4 - SerumAlbumin)] 1EGFR if 9 mL/min/1.73m^2 01/09/2018 04:35 1EGFR if Non- 8 mL/min/1.73m^2 01/09/2018 04:35 Note: Estimated Glomerular Filtration Rate (eGFR) Reference [...] chronic kidney failure. * Performing Lab Footnotes:* [address] [place] [address] - [id number] - [address] - MD: DIRECTOR KENNY BROOKS Order: HEPATITIS B SURFACE ANTIGEN LOINC Test Result Flag Range Unit Date 5195-05 1Hepatitis B virus surface Ag:ACnc:Pt:Ser/Plas:Ord:EIA <0.10 0.00-1.00 mIU/mL 01/08/2018 08:50 Note: HBsAg Signal Cutoff Interpretation Guide: < 1.00 Negative Specimen is presumed to be negative for HBsAg. >=1.00 and < 5.00 Reactive Specimen is reactive for HBsAg. Suggest confirmation by supplemental testing. > 5.00 Positive Specimen is positive for HBsAg. 5195-05 1Hepatitis B virus surface Ag:ACnc:Pt:Ser/Plas:Ord:EIA Negative Negative 01/08/2018 08:50 * Performing Lab Footnotes:* [address] [place] [address] - [id number] - [address] [place] [address], [place] [address] [facility] : DIRECTOR KENNY BROOKS Order: FREE T3 LOINC Test Result Flag Range Unit Date 1T3, FREE 2 2-5 01/08/2018 05:01 * Performing Lab Footnotes:* [address] [place] [address] [id number] - [address] [place] [address], [place] [address] [facility] MD: DIRECTOR KENNY BROOKS Order: FREE T4 LOINC Test Result Flag Range Unit Date 1Free T4 0.96 0.78-2.19 ng/dl 01/08/2018 05:01 * Performing Lab Footnotes:* [address] [place] [address] [id number] - [address] [place] [address], [place] [address] [facility] MD: DIRECTOR KENNY BROOKS Order: TSH ULTRA SENSITIVE LOINC Test Result Flag Range Unit Date 1TSH 2.69 0.47-4.68 mIU/L 01/08/2018 05:01 * Performing Lab Footnotes:* 1[facility] - [id number] - [address] [facility] [address] [place] [address], [place] [address] MICHELE Martinez MD: DIRECTOR KENNY BROOKS Order: MAGNESIUM SERUM LOINC Test Result Flag Range Unit Date 1Magnesium 2.3 1.6-2.3 mg/dl 01/07/2018 23:17 * Performing Lab Footnotes:* [address] [place] [address] - [id number] - [address] [facility] [address] - [place] [address] MICHELE Martinez MD: DIRECTOR KENNY BROOKS Order: PHOSPHORUS SERUM LOINC Test Result Flag Range Unit Date 1Phosphorus 5.9 H 2.5-4.5 mg/dl 01/07/2018 23:17 * Performing Lab Footnotes:* [address] [place] [address] [id number] - [address] [place] [address] [place] [address], [place] [address] MICHELE Martinez MD: DIRECTOR KENNY BROOKS Order: PROTIME PT INR LOINC Test Result Flag Range Unit Date 5902-2 1Coagulation tissue factor induced:Time:Pt:PPP:Qn:Coag 10.6 9.0-11.9 seconds 01/07/2018 23:17 6301-6 1Coagulation tissue factor induced.INR:RelTime:Pt:PPP:Qn:Coag 1 0.9-1.1 01/07/2018 23:17 Note: INR results are intended ONLY to monitor Oral Anticoagulant therapy in stablized patients. The INR Therapeutic Range is 2.0 - 3.0 Patients with a mechanical heart, the INR Range is 2.5 - 3.5 * Performing Lab Footnotes:* [address] [place] [address] - [id number] - [address] [facility] [address] - [place] [address] [facility] - MD: DIRECTOR KENNY BROOKS Order: Arterial Blood Gas - ABG LOINC Test Result Flag Range Unit Date 1pH (ABG) 7.327 L 7.350-7.450 01/07/2018 23:12 1pCO2(T) 36.2 35.0-45.0 mmHg 01/07/2018 23:12 1pO2(T) 112 HH 80.0-100.0 mmHg 01/07/2018 23:12 1sO2 98.1 90.0-99.0 % 01/07/2018 23:12 1Na+ 137.8 135.0-148.0 mmol/l 01/07/2018 23:12 1K+ 3.32 L 3.50-4.50 mmol/l 01/07/2018 23:12 1Ca2+ 1.13 1.120-1.320 mmol/l 01/07/2018 23:12 1Cl- 99.4 98-107 mmol/l 01/07/2018 23:12 1tHb 9.2 L 11.5-17.4 gm/dl 01/07/2018 23:12 1O2Hb >95.0 95.0-99.0 % 01/07/2018 23:12 1COHb <2.80 H 0.5-2.5 % 01/07/2018 23:12 1MetHB <1.30 0.4-1.5 % 01/07/2018 23:12 1Gluc 178 H 60.0-110.0 mg/dl 01/07/2018 23:12 1Lac <1.60 1.0-1.7 mmol/l 01/07/2018 23:12 1Barometric Pressure 760.8 450.0-1000.0 mmHg 01/07/2018 23:12 1BE(act) -7 mmol/l 01/07/2018 23:12 1HCO3 19 L 22-26 meq/L 01/07/2018 23:12 1ctCO2(B) 18 mmol/l 01/07/2018 23:12 1FIO2 (fO2(I) 0.28 % 01/07/2018 23:12 1Drawn By REYNALDO SHANE 01/07/2018 23:12 1Collection Date 01/07/2018 01/07/2018 23:12 1Collection Time 23:16 01/07/2018 23:12 1Sample Site R Radial 01/07/2018 23:12 1Sample Type Arterial 01/07/2018 23:12 1Allens Test Acceptable 01/07/2018 23:12 1Notified By REYNALDO SHANE 01/07/2018 23:12 1Notified Whom NURSE 01/07/2018 23:12 1Date Notified 01/07/2018 01/07/2018 23:12 1Time Notified 23:16 01/07/2018 23:12 1O2 Device Nasal Cannula 01/07/2018 23:12 1L/M 2.0 01/07/2018 23:12 1[place] [id number] 01/07/2018 23:12 1Reported By REYNALDO SHANE 01/07/2018 23:12 * Performing Lab Footnotes:* [address] [place], [place] [address]SOY - [id number] - [address] [facility] [address] - [place] [address] [facility] - MD: DIRECTOR KENNY BROOKS Radiology Results Order: [id number] XR CHEST AP/PA 1 VIEW* Exam Completion Date:01/08/2018 09:29 Procedure: XR CHEST AP/PA 1 VIEW Order Date: 01/08/2018 9:29 AMOrdering Provider: CHAY Roblesinical Indication: AMSComparison: April 29, 2017Findings : Cardiac size is mildly enlarged. Pulmonary vasculature is normal. Mediastinal contour is normal. Aortic contour is normal. There is no consolidation or effusi on. There is no mass or pneumothorax. There is no evidence of active tuberculosi s.There is no skeletal abnormality.Impression: 1. No acute abnormality in the ch est.2. Mild cardiomegaly.3. Exam is otherwise negative. This final report was e lectronically signed by Dr Micky Bolden MD 01/08/20183:00 PMDictated By: MICKY STEVENSON.Date: 01/08/2018 15:06 Vital Signs Vitals Value Date Body Temperature 98.1 F 01/09/2018 Respiratory Rate 18 01/09/2018 O2% BldC Oximetry 98 01/09/2018 BP Systolic 131 mmHg 01/09/2018 BP Diastolic 82 mmHg 01/09/2018 Weight Measured 202.16 lbs 01/09/2018 BSA (Body Surface Area) 2.36428 01/07/2018 BMI (Body Mass Index) 27.6 01/07/2018 Height 72 in 01/07/2018 Plan of Care * No data in the system Procedures Code Code System Procedure Name Target Site Date of Procedure XR CHEST AP/PA 1 VIEW 01/08/2018 15:07 [id number] ICD10 PRFRM URIN FILTRT INTERMIT<6 HR/DAY 01/08/2018 LEFT ARM FISTULA PLACEMENT 08/2017 BILATERAL LEG- VENOUS REPAIR Unknown Encounters Date Code Diagnosis Status (SNOMED-CT) - 70267793 TOXIC ENCEPHALOPATHY Active Immunizations Vaccine Code Code System Vaccine Name Date Status PNEUMONIA APR 2017 Completed Functional Status Code Functional/Cognitive Condition Code System Date Status 230218949 No speech problem (situation) [facility] 01/09/2018 Active 928698351 Blindness - both eyes (disorder) [facility] 01/09/2018 Active 758061084 Firm pressure touch, function (observable entity) [facility] 01/09/2018 Active 450942871 [facility]ated [facility] 01/09/2018 Active 774235273 Orientated [facility] 01/09/2018 Active 179221452 Orientated [facility] 01/09/2018 Active 324494613 Ability to perform activities of everyday life (observable entity) [facility] 01/07/2018 Active 286237505 Needs assistance at home [facility] 01/07/2018 Active 855953466 Ability to manage personal health care (observable entity) [facility] 01/07/2018 Active 521938938 Unsteady gait [facility] 01/08/2018 Active 564714700 Oriented to person [facility] 01/09/2018 Active 9536458 Abnormal vision (finding) [facility] 01/09/2018 Active Hospital Discharge Instructions * Psychosocial* Assistance Required* None * Patient/Family Concerns* None * Emotional State* Calm * Housing Type* House * Emotional State* Pleasant * Discharge Instructions* No Data* Pt will schedule follow up appointment with PCP Dr. Plummer. * Discharge Diagnosis* Acute encephalopathy, Hyperglycemia * Physician Name for Follow Up Appt #1* Follow up with Dr. Plummer in 1 week * Pneumonia Vaccine* Does Not Meet Criteria * Date/Time of Follow Up Appt #2* 01/16/2018 03:15 * Physician Name for Follow Up Appt #2* Follow up with Dr. Kline [phone] * IV Removed Date* 01/09/2018 * Discharge Blood Sugar* 207 * Referral Required* None * Activity Level* As tolerated, unrestricted * Medications* Continue Present Medications * Take all medications as listed on your Discharge Medication List as directed * DO NOT STOP taking your medicine(s) until directed by your doctor. * Diet* Renal diet * Diabetic * Other * Discharge Instructions* Patient education provided * Follow Up Care* Yes * Scheduled Appointment * Patient To Schedule * Readmission Risk (LACE Score)* 11 * Written Discharge Plan given to the Patient at the time of discharge contains: * Reason for hospitalization * Discharge medications including what medications to take, how to take them, and how to obtain the medication. * Patient / family / caregiver given instructions on what to do if their condition changes. * Influenza Vaccine NOT Given, State Reason(s) Below:* Influenza vaccine not indicated * Discharge Instructions 2* Wound / Incision Care* Not Applicable * Discharge Education* Copy of Discharge Medication List * Discussed New / Changed Medications * Discharge Medication Education* Take all medications as listed on your Discharge Medication List as directed * Remember: Get permission from your doctor before taking any additional medications like vitamins, herbal medications, sexual dysfunction pills, alcoholic beverages or any medications you get at your pharmacy without a prescription * Carry a complete, up-to-date list of your home medications with you at all times * Your medication list should be updated when medications are discontinued, doses are changed or new medications are added. A copy of your completed discharge Medication List is attached. * Personal Belongings Returned To Patient/Family* N/A * Valuables Returned To Patient/Family* N/A * Pre-Admission Medications Returned To Patient/Family* N/A * Patient/Significant Other Education Acknowledgement* I hereby acknowledge receiving the explanation of the attached instructions. I was able to 'teach back' my health information and education to my nurse and I understand what I was taught as indicated by my signature below. * Person Receiving Discharge Instructions* Eleazar Rice * Discharge Instructions Explained To* Patient * Discharge Summary* Mode Of Discharge* Wheelchair * Discharge Status* Vital Signs Stable * Patient Transferred/Discharged To* Home * Discharge Status* Afebrile * Adequate Diet/Liquid Intake * Accompanied By* Relatives * Discharge Status* Adequate Urinary Output * Adequate Bowel Functioning * Activity Tolerated within Physical Limits * Home Health Care Monitoring Required* No * Pain At Discharge* Denies Pain * Record Skin Lesions* No Data* AV fistula to left forearm * 'Arm, Lower Left Anterior* Other
[2019-03-18] MEDS ORDERED: POLYMYXIN B-TMP10 ML OU (19:10)
[2019-03-18] MEDS ORDERED: LEVETIRACETAM250 MG PO (19:10)
[2019-03-18] MEDS ORDERED: SEVELAMER CARB800 MG PO (19:10)
[2019-03-18] MEDS ORDERED: ASPIRIN325 MG PO (19:10)
[2019-03-18] MEDS ORDERED: ATORVASTATIN CA40 MG PO (19:10)
[2019-03-18] MEDS ORDERED: NOVOLIN 70100 UNIT/3 SQ (19:10)
[2019-03-18] MEDS ORDERED: AMLODIPINE BESY10 MG PO (19:10)
[2019-03-18] MEDS ORDERED: LISINOPRIL20 MG PO (19:10)
[2019-03-18] MEDS ORDERED: GABAPENTIN400 MG PO (19:10)
[2019-03-18] MEDS ORDERED: HYDRALAZINE HCL25 MG PO (19:10)
[2019-03-18] MEDS ORDERED: DEXTROSE 50% SYRINGE 50 ML IV PRN (19:45)
[2019-03-18] MEDS: HYDRALAZINE HCL 20 MG/ML VIAL IV NR ×2 (19:45→20:03)
[2019-03-18] MEDS ORDERED: HYDRALAZINE HCL 20 MG/ML VIAL ONE (19:46)
[2019-03-18] MEDS ORDERED: CLONIDINE HCL 0.2 MG TAB PO NR (20:00)
[2019-03-18] MEDS ORDERED: CLONIDINE HCL 0.2 MG TAB ONE (20:13)
[2019-03-18] MEDS: INSULIN REGULAR, HUMAN 100 UNIT/1 ML 3ML VIAL SQ SCH (20:17)
[2019-03-18 21:30] VITALS: BP 170/95
[2019-03-18 22:37] VITALS: BP 170/95
--- NOTE | 2019-03-18 23:00 | NUR ---
patient arrived from er, patient is stable alert and oriented.
[2019-03-19] VITALS (7 sets, daily range): BP systolic 162–180; BP diastolic 71–95
[2019-03-19 03:04] LABS: CREATINE KINASE 76 IU/L (30-200)
[2019-03-19] MEDS ORDERED: ONDANSETRON HCL INJ 2MG/ML 2ML 2 MG/ML VIAL IV PRN (05:15)
[2019-03-19] MEDS ORDERED: HYDRALAZINE HCL 20 MG/ML VIAL IV PRN (05:15)
[2019-03-19] MEDS ORDERED: ACETAMINOPHEN 325 MG TAB PO PRN (05:15)
[2019-03-19] MEDS ORDERED: MELATONIN 3 MG TAB PO PRN (05:15)
[2019-03-19] MEDS: HYDRALAZINE HCL 20 MG/ML VIAL IV PRN ×2 (05:26→21:41)
--- NOTE | 2019-03-19 07:00 | NUR ---
patient endorsed to next shift for continuity of care.
[2019-03-19] MEDS: INSULIN REGULAR, HUMAN 100 UNIT/1 ML 3ML VIAL SQ SCH ×4 (07:30→21:00)
--- NOTE | 2019-03-19 07:30 | NUR ---
Received patient this morning, rounds completed and patient c/o severe chest pains. Attending aware and consults in place for cardiology and nephrology. Patient is a dialysis patient with CHF exacerbation, telemonitor in place. HOB elevated due to orthopnea
--- NOTE | 2019-03-19 07:46 | NUR ---
patient endorsed to next shift for continuity of care.
--- NOTE | 2019-03-19 08:15 | NUR ---
consult called Addendum: 03/19/19 at 0817 by Thomas Nguyễn RN renal consult Dr. arroyo
[2019-03-19] MEDS: HYDRALAZINE HCL 25 MG TAB PO SCH ×2 (08:17→17:00)
[2019-03-19] MEDS: ASPIRIN 325 MG TAB PO SCH (08:18)
[2019-03-19] MEDS: GABAPENTIN 400 MG CAP PO SCH ×2 (08:18→17:00)
--- NOTE | 2019-03-19 08:18 | NUR ---
Dr. Olson called for pleural effusion consult, voice mail left.
[2019-03-19] MEDS: LEVETIRACETAM 250 MG PO SCH ×2 (08:19→17:00)
[2019-03-19] MEDS: AMLODIPINE BESYLATE 10 MG TAB PO SCH (08:19)
[2019-03-19] MEDS: SEVELAMER CARBONATE 800 MG TAB PO SCH ×3 (08:19→21:29)
[2019-03-19] MEDS: LISINOPRIL 20 MG TAB PO SCH (08:19)
--- NOTE | 2019-03-19 08:21 | NUR ---
Dr. Haynes called for cardiac consult.
[2019-03-19] MEDS: ACETAMINOPHEN/CODEINE 300MG - 30MG TAB PO PRN ×2 (08:23→23:57)
--- NOTE | 2019-03-19 08:25 | NUR ---
Urine needed for labs, dialysis patient, patient instructed to inform nursing when wants to pee.
[2019-03-19] MEDS ORDERED: FUROSEMIDE INJ 10 MG/ML 4 ML VIAL IV SCH (09:00)
--- NOTE | 2019-03-19 09:20 | NUR ---
Consults called in for Dr. Campbell, Dr. Collins and Dr. Salazar by out outing nurse
[2019-03-19 12:18] LABS: CREATINE KINASE MB 1.7 ng/mL (0-5.0)
--- NOTE | 2019-03-19 12:53 | NUR ---
Nutrition Screen Note RD Recommendation for Physician: - Continue current diet - Check Phos with next lab draw Plan of Care: RD following, monitoring for tolerance and adequacy Nutrition reason for involvement: Nutrition Risk Trigger- CHF dx Primary Diagnose(s): CHF PMH: CHF, TIA, ESRD on HD Ht: 71 in Wt: 215.44 lb BMI: 30 kg/m2 IBW: [address] Assessment: (03/19) 58 YOM admitted for CHF, evaluated for admit dx of CHF. Pt having bedside testing/procedure at time of attempted visits. Pt discussed during am rounds. No reported wt loss or poor intake at admit. No reported poor intake or GI distress since admit. Pt currently hyponatremic. Skin intact. Chart reviewed, per chart pt is blind and deaf in R ear. Labs and meds reviewed. Will monitor. Current Diet: Renal, 1800 ADA Malnutrition Evaluation (03/19/19) The patient does not meet criteria for a specified degree of malnutrition at this time. Will re-evaluate at follow-up as appropriate. Unable to assess at time of visit, pt having bedside testing/procedure. Diet Education Needs Assessment: Diet education not indicated at this time, pt currently hyponatremic. Diet tolerance: tolerating po Nutrition Care Level: Low Signed: Kenna uDffy RD, LD, [facility]
--- NOTE | 2019-03-19 13:51 | NUR ---
Returned call from Dr. Ernandez and he states he attempted to advance NG tube yesterday but it couldn't advance due to a stricture and to leave it as it is.
--- NOTE | 2019-03-19 14:36 | NUR ---
Rounds by Dr. Greene and orders for dialysis and consent received. Dialysis center notified.
--- NOTE | 2019-03-19 17:47 | Consultation ---
DATE OF CONSULTATION: Pulmonary Critical Care Consultation CHIEF COMPLAINT: Dyspnea and chest pain. HISTORY OF PRESENT ILLNESS: The patient is a 58-year-old man with a history of hypertension, diabetes, and end-stage renal disease, he receives hemodialysis Sunday, Sunday, and Sunday. He came in complaining of worsening dyspnea for two days. He noticed increased cough, but no fever. He complained of some substernal chest pain and heaviness. After admission, the patient received some Lasix and dialysis. He reports improvement in his symptoms. PAST SURGICAL HISTORY: Status post arm fistula for dialysis access. PAST MEDICAL HISTORY: 1. Hypertension. 2. Diabetes. 3. End-stage renal disease. SOCIAL HISTORY: The patient has never been a smoker. He is not an active drinker. FAMILY HISTORY: The patient has a history of diabetes in the family. ALLERGIES: NO KNOWN DRUG ALLERGIES. REVIEW OF SYSTEMS: The patient has no fever. He has no headache or neck pain. He is not having any sore throat. He did have some chest pain, that has improved. He had some dyspnea, that has improved. He has no abdominal pain. There is no nausea or vomiting. He does not have leg swelling. PHYSICAL EXAMINATION: VITAL SIGNS: The blood pressure is 162/87 and saturation is 98%. HEENT: Shows no facial swelling or erythema. LYMPHATIC: Shows no submandibular, cervical, or supraclavicular adenopathy. CARDIAC: Reveals regular rate and rhythm with normal S1, S2. LUNGS: Auscultation of lungs reveals clear breath sounds bilaterally. There is no wheezing. ABDOMEN: Soft, nontender. There is no rebound or guarding. EXTREMITIES: Show no leg edema or calf tenderness. There is no cyanosis or clubbing. SKIN: Shows no rashes. NEUROLOGICAL: Shows no focal abnormalities. LABORATORY DATA: Chest x-ray shows some pulmonary venous congestion and small bilateral pleural effusions. White blood cell count is 6.5 and hemoglobin is 8.8. The platelet count is 264. Electrolytes are within normal limits. IMPRESSION: 1. Vwbox-dl-cixtwji systolic congestive heart failure. 2. End-stage renal disease. 3. Anemia, secondary to chronic blood loss. PLAN: 1. Continue current cardiac regimen. 2. Continue dialysis. 3. Probable discharge tomorrow. MD HA Keen/COLLINL /[id number]
[2019-03-19] MEDS ORDERED: SODIUM CHLORIDE 0.9% 1000ML 1,000 ML ONE (18:34)
[2019-03-19 19:51] LABS: CHOL/HDL RATIO 1.7 (3.9-4.7)
--- NOTE | 2019-03-19 20:07 | Consultation ---
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 The patient is legally blind, end-stage renal disease, diabetic neuropathy, peripheral vascular disease. Renal has been consulted for management of kidney failure. He lives in [place], but currently here visiting his son and staying in [place]. He has dialysis arranged at [facility]. He is on Sunday, Sunday, Sunday schedule. He denies any chest pain, shortness of breath, fever, chills, or headache. His last potassium 4.3, bicarbonate 28, creatinine 5.8. Chest x-ray, please see official report, shows decompensated CHF with mild bilateral pulmonary venous congestion. ALLERGIES: HE HAS NO APPARENT DRUG ALLERGIES. SOCIAL HISTORY: He does not smoke or drink. FAMILY HISTORY: Significant for diabetes. MEDICATIONS: Currently on: 1. Lisinopril 20 mg daily. 2. He is on Renagel 1600 mg p.o. t.i.d. with meals. 3. Levetiracetam 250 mg p.o. b.i.d. 4. He is on hydralazine p.r.n. IV for elevated blood pressure as well as hydralazine 50 mg p.o. b.i.d. 5. Furosemide 40 mg IV q.12., which I am going to stop. 6. Amlodipine 10 mg daily. 7. Aspirin 325 mg daily. 8. Atorvastatin 40 mg at bedtime. PHYSICAL EXAMINATION: GENERAL: Awake, alert, and oriented x3, sitting up in bed, in no apparent distress. VITAL SIGNS: Blood pressure 162/87, pulse rate 89, afebrile, respiratory rate 17, oxygen saturation 98%. HEAD AND NECK: Oral mucosa moist. Neck veins flat. No JVD. LUNGS: Bibasilar rales. HEART: S1, S2 audible, 2 to 3/6 ejection systolic murmur heard over left sternal border. ABDOMEN: Otherwise soft, nontender. No apparent visceromegaly. EXTREMITIES: Lower extremity examination shows no edema. IMPRESSION AND PLAN: 1. Fluid overload. 2. End-stage renal disease. 3. Acid-base status stable. 4. Potassium within normal range. 5. Labs pending from today. 6. Dialysis nurse was contacted on a stat basis for urgent hemodialysis. I will place on renal diet. Fluid restriction. Please see orders. MD BRADLEY Marrero/COLLINL /[id number]
[2019-03-19] MEDS: ATORVASTATIN 40 MG TAB PO SCH (21:29)
[2019-03-20] VITALS (7 sets, daily range): BP systolic 128–152; BP diastolic 63–79
--- NOTE | 2019-03-20 02:24 | Consultation ---
DATE OF CONSULTATION: 03/19/2019 Cardiology Consultation REQUESTING PHYSICIAN: Nasim Nunez MD REASON FOR CONSULTATION: Congestive heart failure. HISTORY OF PRESENT ILLNESS: This is a 58-year-old male with history of hypertension, diabetes mellitus complicated by nephropathy, peripheral arterial disease, and end-stage renal disease on hemodialysis, and history of TIA, who presents with complaints of shortness of breath. The patient reports he developed shortness of breath Wade night after dialysis with worsening of his edema as well as symptoms suggestive of orthopnea and PND. Yesterday, he reported sharp burning chest pain, 10/10 in severity that would come and go. There was no nausea, diaphoresis, or radiation. He subsequently presented to the ER for further evaluation. REVIEW OF SYSTEMS: Negative except as per HPI. PAST MEDICAL HISTORY: 1. Diabetes mellitus complicated by peripheral neuropathy. 2. Hypertension. 3. Peripheral arterial disease. 4. History of TIA. 5. End-stage renal disease, on hemodialysis. PAST SURGICAL HISTORY: 1. Fistula. 2. Reported surgery for peripheral arterial disease. ALLERGIES: NO KNOWN DRUG ALLERGIES. MEDICATIONS: Please see medication list. SOCIAL HISTORY: Denies tobacco or illicit drugs. Drinks alcohol on occasion. FAMILY HISTORY: Denies. PHYSICAL EXAMINATION: VITAL SIGNS: Temperature 96 degrees, pulse 69, respiratory rate 20, blood pressure 162/87, and oxygen saturation 98% on 2 L nasal cannula. GENERAL: A well-developed, well-nourished woman, in no acute distress. HEENT: Normocephalic, atraumatic, blind. NECK: Supple. No thyromegaly or cervical lymphadenopathy. No carotid bruits. LUNGS: Clear to auscultation bilaterally. No wheezes or crackles. CARDIOVASCULAR: Normal rate, regular rhythm. No murmur. Normal S1, S2. ABDOMEN: Soft, nontender. EXTREMITIES: 1+ pitting edema. NEURO: Moves all extremities equally. LABORATORY DATA: WBC 6.45, hemoglobin 8.8, hematocrit 27.1, platelets 267. Sodium 133, potassium 4.3, chloride 93, CO2 of 28. BUN 17, creatinine 5.83. BNP 3720. Troponin 0.019. Chest x-ray, findings suggestive of decompensated CHF with mild bilateral pulmonary venous congestion, eofrf-co-ufjfroeu right and small left pleural effusions and bilateral lower lobes segmental atelectasis. Echocardiogram with normal LV size and moderate concentric LVH. LVEF 55% to 60% with pseudonormal LV filling pattern. Right ventricle systolic pressure is 44 mmHg, RA pressure 15 mmHg. Telemetry, normal sinus rhythm IMPRESSION: 1. Pyomx-ru-qbemrjn diastolic heart failure. 2. End-stage renal disease, on hemodialysis. 3. Chest pain. 4. Diabetes mellitus, complicated by peripheral neuropathy. 5. Hypertension. 6. Peripheral arterial disease. 7. History of transient ischemic attack. RECOMMENDATIONS: The patient is ruled out for myocardial infarction with serial cardiac biomarkers. Once the patient is able to lay flat, he will need ischemic evaluation with nuclear stress test. In the meantime, volume management per Nephrology, given need for hemodialysis. Continue current cardiac medications including aspirin and statin. Fasting lipid panel. Monitor the patient on telemetry while admitted. Thank you for this consult. We will continue to follow. Anne Marie Haynes MD [facility]/MODL /[id number]
[2019-03-20 04:41] LABS: BASOPHILS # (AUTO) 0.1 (0.0-0.1); BASOPHILS % 1.2 % (0.0-1.0); EOSINOPHILS # (AUTO) 0.2 (0.0-0.4); HEMATOCRIT 25.4 % (38.2-49.6); HEMOGLOBIN 8.2 g/dL (14.0-18.0); LYMPHOCYTES # (AUTO) 1.1 (1.0-3.2); LYMPHOCYTES % 17.4 % (18.0-39.1); MEAN CORPUSCULAR HEMOGLOBIN 30.5 pg (28-32); MEAN CORPUSCULAR HGB CONC 32.3 g/dL (31-35); MEAN CORPUSCULAR VOLUME 94.4 fL (81-99); MONOCYTES # (AUTO) 0.6 (0.2-0.8); MONOCYTES % 9.6 % (4.4-11.3); NEUTROPHILS # (AUTO) 4.1 (2.1-6.9); NEUTROPHILS % 67.3 % (38.7-80.0); PLATELET COUNT 215 x10e3/uL (140-360); RED BLOOD COUNT 2.69 x10e6/uL (4.3-5.7); RED CELL DISTRIBUTION WIDTH 17.7 % (11.7-14.4)
[2019-03-20 05:00] LABS: ANION GAP 12.1 mmol/L (8-16); CHOL/HDL RATIO 1.8 (3.9-4.7); CREATININE, SERUM 4.3 mg/dL (0.72-1.25); POTASSIUM 4.1 mmol/L (3.5-5.1)
[2019-03-20 05:15] LABS: THYROID STIMULATING HORMONE 2.499 uIU/mL (0.350-4.940)
--- NOTE | 2019-03-20 06:51 | NUR ---
patient condition throughout the night was stable, patient endorsed to next shift for continuity of care. patient aware of the impending tread mill with Dr. Haynes and signed consent.
--- NOTE | 2019-03-20 07:29 | NUR ---
Patient alert and responsive, no resp distress, still experiencing orthopnea, HOB at 45 degrees, stress test scheduled today and will verify if patient can lay flat. Will monitor.
[2019-03-20] MEDS: INSULIN REGULAR, HUMAN 100 UNIT/1 ML 3ML VIAL SQ SCH ×4 (07:30→22:07)
[2019-03-20] MEDS: LEVETIRACETAM 250 MG PO SCH ×2 (08:16→16:59)
[2019-03-20] MEDS ORDERED: REGADENOSON 0.4 MG/5 ML SYR IV ONE (10:09)
[2019-03-20] MEDS: ASPIRIN 325 MG TAB PO SCH (13:01)
[2019-03-20] MEDS: GABAPENTIN 400 MG CAP PO SCH ×2 (13:01→17:00)
[2019-03-20] MEDS: SEVELAMER CARBONATE 800 MG TAB PO SCH ×3 (13:01→21:45)
[2019-03-20] MEDS: LISINOPRIL 20 MG TAB PO SCH (13:01)
[2019-03-20] MEDS: HYDRALAZINE HCL 25 MG TAB PO SCH ×2 (13:01→17:00)
[2019-03-20] MEDS: AMLODIPINE BESYLATE 10 MG TAB PO SCH (13:01)
--- NOTE | 2019-03-20 13:02 | NUR ---
Patient returned from stress test and meds administered at this time, VSS, no c/o chest pains, will monitor.
--- NOTE | 2019-03-20 14:33 | Progress Note ---
DATE: SUBJECTIVE: The patient had dialysis yesterday. He is currently in stress testing. PHYSICAL EXAMINATION: VITAL SIGNS: The patient is afebrile. The blood pressure is 145/79 and the pulse is 72. CARDIAC: Reveals regular rate and rhythm. Normal S1 and S2. LUNGS: Auscultation of lungs shows clear breath sounds bilaterally. ABDOMEN: Soft, nontender. IMPRESSION: 1. Retew-ir-oqgkioi systolic congestive heart failure. 2. End-stage renal disease. 3. Anemia secondary to chronic blood loss. 4. Atypical chest pain. 5. Diabetes. PLAN: 1. Await stress test results and completion of cardiac evaluation. 2. Continue dialysis as needed. 3. Wean oxygen. Shane Olson MD [facility]/MODL /[id number]
--- NOTE | 2019-03-20 14:59 | NUR ---
Contacted Dr. Greene and stated patient can be discharged from his standpoint.
--- NOTE | 2019-03-20 15:49 | NUR ---
Stress test normal per cardiology and ok from their perspective to discharge patient
--- NOTE | 2019-03-20 16:11 | NUR ---
O2Sats dropped to 78% without oxygen NC. Order in place for home O2 eval.
--- NOTE | 2019-03-20 16:14 | NUR ---
Dr. Greene informed patient will not be discharged today and may need more dialysis tomorrow and re-evaluate
[2019-03-20] MEDS: ATORVASTATIN 40 MG TAB PO SCH (21:45)
[2019-03-21] VITALS: BP 143/67
--- NOTE | 2019-03-21 01:40 | Progress Note ---
DATE: 03/20/2019 Cardiology Progress Note SUBJECTIVE: The patient denies chest pain or shortness of breath. He was seen for nuclear stress test. OBJECTIVE: VITAL SIGNS: Temperature 97.8 degrees, pulse 72, respiratory rate 20, blood pressure 145/79, and oxygen saturation 98% on 3 L nasal cannula. GENERAL: Awake, alert, in no acute distress. LUNGS: Clear to auscultation bilaterally. No wheezes or crackles. CARDIOVASCULAR: Normal rate, regular rhythm. No murmur. Normal S1 and S2. ABDOMEN: Soft and nontender. EXTREMITIES: 1+ pitting edema. CARDIAC MEDICATIONS: Atorvastatin 40 mg p.o. at bedtime, hydralazine 50 mg p.o. b.i.d., amlodipine 10 mg p.o. daily, lisinopril 20 mg p.o. daily, and aspirin 325 mg p.o. daily. LABORATORY DATA: WBC 6.03, hemoglobin 8.2, hematocrit 25.4, and platelets 215. Sodium 133, potassium 4.1, chloride 96, CO2 29, BUN 10, and creatinine 4.3. TELEMETRY: Normal sinus rhythm IMPRESSION: 1. Ecwmo-qt-nbbqqsz diastolic heart failure. 2. End-stage renal disease, on hemodialysis. 3. Chest pain. 4. Diabetes mellitus complicated by peripheral neuropathy. 5. Hypertension. 6. Peripheral arterial disease. 7. History of transient ischemic attack. RECOMMENDATIONS: The patient ruled out for myocardial infarction with serial cardiac biomarkers. The patient had ischemic evaluation with nuclear stress test today without evidence of ischemia. Volume management per Nephrology given end-stage renal disease on hemodialysis and likely would benefit from further ultrafiltration. Continue current cardiac medications. Monitor the patient on telemetry while admitted. No further cardiac evaluation is indicated at this time. Thank you for this consult. We will continue to follow. Anne Marie Haynes MD [facility]/MODL /[id number]
[2019-03-21 04:00] VITALS: BP 138/64
[2019-03-21 04:02] LABS: BASOPHILS # (AUTO) 0.1 (0.0-0.1); BASOPHILS % 1.1 % (0.0-1.0); EOSINOPHILS # (AUTO) 0.2 (0.0-0.4); EOSINOPHILS % 2.6 % (0.0-6.0); HEMATOCRIT 26.9 % (38.2-49.6); HEMOGLOBIN 8.4 g/dL (14.0-18.0); LYMPHOCYTES # (AUTO) 1.3 (1.0-3.2); LYMPHOCYTES % 18.9 % (18.0-39.1); MEAN CORPUSCULAR HEMOGLOBIN 30.5 pg (28-32); MEAN CORPUSCULAR HGB CONC 31.2 g/dL (31-35); MONOCYTES # (AUTO) 0.8 (0.2-0.8); MONOCYTES % 11.3 % (4.4-11.3); NEUTROPHILS # (AUTO) 4.6 (2.1-6.9); NEUTROPHILS % 65.8 % (38.7-80.0); PLATELET COUNT 237 x10e3/uL (140-360); RED BLOOD COUNT 2.75 x10e6/uL (4.3-5.7)
[2019-03-21 04:14] LABS: MEAN CORPUSCULAR VOLUME 97.8 fL (81-99)
[2019-03-21 04:17] LABS: ANION GAP 13.3 mmol/L (8-16); POTASSIUM 4.3 mmol/L (3.5-5.1)
[2019-03-21 04:23] LABS: CREATININE, SERUM 6.47 mg/dL (0.72-1.25)
--- NOTE | 2019-03-21 07:00 | NUR ---
RECEIVED PATIENT AWAKE RESTING IN BED NO SIGNS OF DISTRESS. BED LOW, WHEELS LOCKED, SIDE RAILS X2. CALL LIGHT IN REACH WILL CONTINUE TO MONITOR PATIENT.
[2019-03-21 07:31] VITALS: BP 140/69
[2019-03-21] MEDS ORDERED: SODIUM CHLORIDE 0.9% 1000ML 2,000 ML ONE (07:46)
[2019-03-21] MEDS: LISINOPRIL 20 MG TAB PO SCH (08:27)
[2019-03-21] MEDS: GABAPENTIN 400 MG CAP PO SCH ×2 (08:27→16:30)
[2019-03-21] MEDS: HYDRALAZINE HCL 25 MG TAB PO SCH ×2 (08:27→16:30)
[2019-03-21] MEDS: SEVELAMER CARBONATE 800 MG TAB PO SCH ×2 (08:27→16:30)
[2019-03-21] MEDS: AMLODIPINE BESYLATE 10 MG TAB PO SCH (08:27)
[2019-03-21] MEDS: INSULIN REGULAR, HUMAN 100 UNIT/1 ML 3ML VIAL SQ SCH ×3 (08:37→16:31)
[2019-03-21] MEDS: LEVETIRACETAM 250 MG PO SCH ×2 (09:00→16:31)
[2019-03-21 10:20] VITALS: BP 140/69
[2019-03-21 11:25] VITALS: BP 161/76
--- NOTE | 2019-03-21 12:45 | NUR ---
3L REMOVED DURING DIALYSIS. PATIENT TOLERATED WELL. LAST BLOOD PRESSURE- 154/78, HR- 86.
[2019-03-21] MEDS ORDERED: ONDANSETRON HCL 4 MG ORAL DISINTEGRATING TAB PO PRN (13:00)
[2019-03-21] MEDS: ASPIRIN 325 MG TAB PO SCH (13:20)
--- NOTE | 2019-03-21 14:00 | NUR ---
AMBULATED PATIENT IN [facility]ALLWAY. PATIENT 87% ON RA. NOTIFIED CASE MANAGEMENT.
--- NOTE | 2019-03-21 14:30 | NUR ---
ORDERS REC'D FOR HOME 02 SATS 87% ON ROOM AIR CHOICE LETTER SIGNED FOR [facility] [phone] FAXED CLINICALS TO [phone], CONFIRMATION REC'D CALLED ELEAZAR THAO WITH [facility] AT [phone] HE WILL DELIVER PORTABLE TO PT'S ROOM TODAY AND CONCENTRATOR TO HOME PT IS NOT GOING TO HIS HOME IN [place] UPON DISCHARGE IS GOING TO HIS FRIEND RADHA CARRANZA'S HOME FOR THE NEXT 2 MONTHS [facility] [phone] [id number] [facility] [id number]
[2019-03-21 15:33] VITALS: BP 145/67
--- NOTE | 2019-03-21 17:00 | NUR ---
REMOVED PATIENTS IV. CATHETER TIP INTACT AND PRESSURE DRESSING APPLIED.
--- NOTE | 2019-03-21 18:02 | NUR ---
PATIENT DISCHARGED FROM FACILITY. PATIENT GATHERED ALL PERSONAL BELONGINGS, DISCHARGE INSTRUCTIONS, AND FOLLOW UP INFORMATION. LEFT UNIT IN WHEELCHAIR AND WENT HOME VIA PRIVATE AUTO. NO SIGNS OF DISTRESS WHEN LEAVING FACILITY.
--- NOTE | 2019-03-22 00:02 | Progress Note ---
DATE: 03/21/2019 Cardiology Progress Note SUBJECTIVE: The patient denies chest pain or shortness of breath. He was seen and receiving hemodialysis. OBJECTIVE: VITAL SIGNS: Temperature 97.3 degrees, pulse 83, respiratory rate 20, blood pressure 151/76, oxygen saturation 99% on 2 L nasal cannula. GENERAL: Awake, alert, in no acute distress. LUNGS: Clear to auscultation bilaterally. No wheezes or crackles. CARDIOVASCULAR: Normal rate, regular rhythm. No murmur. Normal S1, S2. ABDOMEN: Soft, nontender. EXTREMITIES: 1+ pitting edema. CARDIAC MEDICATIONS: 1. Hydralazine 50 mg p.o. b.i.d. 2. Aspirin 325 mg p.o. daily. 3. Atorvastatin 40 mg p.o. at bedtime. 4. Amlodipine 10 mg p.o. daily. 5. Lexapro 20 mg p.o. daily. LABORATORY DATA: WBC 6.98, hemoglobin 8.4, hematocrit 26.9, platelets 237. Sodium 135, potassium 4.3, chloride 95, CO2 of 31, BUN 17, creatinine 6.47. TELEMETRY: Normal sinus rhythm. IMPRESSION: 1. Mmguy-zw-txyhoug diastolic heart failure. 2. End-stage renal disease, on hemodialysis. 3. Chest pain. 4. Diabetes mellitus, complicated by peripheral neuropathy. 5. Hypertension. 6. Peripheral arterial disease. 7. History of transient ischemic attack. RECOMMENDATIONS: The patient ruled out for myocardial infarction with serial cardiac biomarkers. Ischemic evaluation was without evidence of ischemia. Volume management per Nephrology, given end-stage renal disease, on hemodialysis. Would benefit from further ultrafiltration. Continue current cardiac medications. Monitor the patient closely on telemetry while admitted. No further cardiac evaluation is indicated at this time. Thank you for this consult. We will continue to follow. Anne Marie Haynes MD [facility]/MODL /[id number]
--- NOTE | 2019-03-22 03:42 | Discharge Summary ---
ADMISSION DIAGNOSES: Possible congestive heart failure exacerbation, fluid overload with pleural effusion secondary to end-stage renal disease, hypertension with end-stage renal disease, hyperlipidemia, and chest pain. DISCHARGE DIAGNOSES: Possible congestive heart failure exacerbation, fluid overload with pleural effusion secondary to end-stage renal disease, hypertension with end-stage renal disease, hyperlipidemia, and chest pain, chronic systolic congestive heart failure, rule out acute coronary syndrome. HISTORY: Hypertension; type 2 diabetes; TIA; end-stage renal disease with dialysis Sunday, Sunday, Sunday; hyperlipidemia; and chronic systolic CHF. SURGICAL HISTORY: Left arm fistula. FAMILY HISTORY: The patient's uncle brothers x2, have diabetes. SOCIAL HISTORY: Noncontributory. HOSPITAL COURSE: 58-year-old male admits with complaints of substernal chest pain and pressure that began 2 days ago after dialysis. The pain radiated outward bilaterally on his chest, but did not radiate down his arms. He has associated shortness of breath, but denies nausea, vomiting, diarrhea, fever, dizziness, and known CHF history. He is compliant with dialysis. On admission, echo showed an EF of 45% with trace pericardial effusion. EKG showed normal sinus rhythm with PVCs at a rate of 81. Chest x-ray showed findings suggestive of decompensated CHF with mild bilateral pulmonary venous congestion. Xvgxs-yh-ahbkipbm right and small left pleural effusion and bilateral lower lobe subsegmental atelectasis. BNP on admission was 3720. He was started on Lasix IV and started on dialysis per Nephrology. AL was ruled out due to serial cardiac markers. He had a stress test per Cardiology recommendation, which did not show any evidence of ischemia. After couple days of dialysis and IV Lasix, the patient is feeling much better. His oxygen saturation on room air with ambulation was above 90%, so he did not qualify for home oxygen. The patient will discharge home and follow up with dialysis as scheduled, Cardiology in 1 to 2 weeks as well as primary care in 1 to 2 weeks. The patient understands discharge instructions and agrees to plan. Vital signs, stable. The patient afebrile. Dictated by Nina Cunningham NP Nasim Nunez MD [facility]/MODL /[id number]
== END 2019-03-21 18:02 | disposition home or self-care (01) | DRG 291 ==
LOC: ER 16:56 → ERHOLD 18:20 → MED/SURG 21:15
PROVIDERS: ADMIT Internal Medicine; ATTEND Internal Medicine
PROC: 5A1D70Z Performance of Urinary Filtration, Intermittent, Less than 6 Hours Per Day (ICD-10-PCS; principal; 2019-03-19)
PROC: 5A1D70Z Performance of Urinary Filtration, Intermittent, Less than 6 Hours Per Day (ICD-10-PCS; 2019-03-21)
DX: I13.2 Hypertensive heart and chronic kidney disease with heart failure and with stage 5 chronic kidney disease, or end stage renal disease (principal); N18.6 End stage renal disease; I50.43 Acute on chronic combined systolic (congestive) and diastolic (congestive) heart failure; E11.22 Type 2 diabetes mellitus with diabetic chronic kidney disease; Z99.2 Dependence on renal dialysis; Z79.4 Long term (current) use of insulin; Z86.73 Personal history of transient ischemic attack (TIA), and cerebral infarction without residual deficits; E78.5 Hyperlipidemia, unspecified; D50.0 Iron deficiency anemia secondary to blood loss (chronic); E11.40 Type 2 diabetes mellitus with diabetic neuropathy, unspecified; E11.51 Type 2 diabetes mellitus with diabetic peripheral angiopathy without gangrene; H54.7 Unspecified visual loss; H91.91 Unspecified hearing loss, right ear
CPT/HCPCS: 36415; 71045; 78452; 80048; 80053; 80061; 82550; 82553; 82948; 83036; 83880; 84443; 84484; 85025; 85610; 85730; 86704; 86705; 86706; 86707; 87340; 93005; 93017; 93306; 96374; 99284; A9502; J0360; J1817; J1940; J2405; J7030

== ENCOUNTER 2019-07-16 16:48 | Inpatient (IN) | payer MEDICARE ==
[~2019-07-16] VITALS: Ht 180.3 cm; Wt 97.5 kg
[~2019-07-16 16:48] MED LIST: AMLODIPINE BESY10 MG PO; ASPIRIN325 MG PO; ATORVASTATIN CA40 MG PO; GABAPENTIN400 MG PO; HYDRALAZINE HCL25 MG PO; LEVETIRACETAM250 MG PO; LISINOPRIL20 MG PO; NOVOLIN 70100 UNIT/3 SQ; POLYMYXIN B-TMP10 ML OU; SEVELAMER CARB800 MG PO
[2019-07-16] MEDS ORDERED: IPRATROPIUM BROMIDE 0.02% 2.5 ML NEB NEB STA (17:23)
[2019-07-16] MEDS ORDERED: ALBUTEROL SULF 0.083% NEB SOLN 3 ML NEB NEB STA (17:23)
[2019-07-16] MEDS ORDERED: SODIUM CHLORIDE 0.9% 1000ML 1,000 ML IV STA (17:23)
[2019-07-16] MEDS ORDERED: SOD POLYSTYRENE SULFONATE SUSP 15 GM/60 ML BTL PO ONE (17:30)
[2019-07-16 17:46] LABS: BASOPHILS # (AUTO) 0.1 (0.0-0.1); BASOPHILS % 0.5 % (0.0-1.0); EOSINOPHILS # (AUTO) 0.2 (0.0-0.4); EOSINOPHILS % 1.9 % (0.0-6.0); HEMATOCRIT 31.7 % (38.2-49.6); HEMOGLOBIN 10.9 g/dL (14.0-18.0); LYMPHOCYTES # (AUTO) 1.7 (1.0-3.2); LYMPHOCYTES % 18.8 % (18.0-39.1); MEAN CORPUSCULAR HEMOGLOBIN 29.5 pg (28-32); MEAN CORPUSCULAR HGB CONC 34.4 g/dL (31-35); MEAN CORPUSCULAR VOLUME 85.7 fL (81-99); MONOCYTES # (AUTO) 0.6 (0.2-0.8); MONOCYTES % 6.7 % (4.4-11.3); NEUTROPHILS # (AUTO) 6.7 (2.1-6.9); NEUTROPHILS % 71.7 % (38.7-80.0); PLATELET COUNT 208 x10e3/uL (140-360); RED CELL DISTRIBUTION WIDTH 14.6 % (11.7-14.4)
[2019-07-16 17:56] LABS: INR 1.08; PROTHROMBIN TIME 14.7 seconds (11.9-14.5)
[2019-07-16 18:00] LABS: PARTIAL THROMBOPLASTIN TIME 32.1 seconds (23.8-35.5)
[2019-07-16 18:02] LABS: ALBUMIN 3.8 g/dL (3.5-5.0); ALBUMIN/GLOBULIN RATIO 1.2 (0.8-2.0); ANION GAP 24.8 mmol/L (8-16); CALCIUM 8.3 mg/dL (8.4-10.2); CREATININE, SERUM 13.19 mg/dL (0.72-1.25); MAGNESIUM 2.5 MG/DL (1.3-2.1)
[2019-07-16 18:10] LABS: POTASSIUM 6.8 mmol/L (3.5-5.1)
[2019-07-16] MEDS ORDERED: DEXTROSE 50% SYRINGE 50 ML IV STA (18:10)
[2019-07-16] MEDS ORDERED: SODIUM BICARBONATE 8.4% INJ 50 ML SYR IV STA (18:10)
[2019-07-16] MEDS ORDERED: FUROSEMIDE INJ 10 MG/ML 10 ML VIAL IV ONE (18:15)
[2019-07-16] MEDS ORDERED: INSULIN REGULAR, HUMAN 100 UNIT/1 ML 3ML VIAL IV ONE (18:15)
[2019-07-16] MEDS ORDERED: CALCIUM GLUCONATE 10% INJ 0.465 MEQ/ML VIAL ONE (18:19)
[2019-07-16] MEDS ORDERED: DEXTROSE 50% SYRINGE 50 ML IV ONE (18:19)
[2019-07-16] MEDS ORDERED: SODIUM CHLORIDE 0.9% 100 ML ONE (18:20)
[2019-07-16] MEDS ORDERED: SODIUM BICARBONATE 8.4% SYRING 50 ML ONE (18:20)
[2019-07-16] MEDS ORDERED: INSULIN REGULAR, HUMAN 100 UNIT/1 ML 3ML VIAL ONE (18:20)
--- NOTE | 2019-07-16 18:21 | Diagnostic Imaging Report ---
Examination: Single AP view of the chest. COMPARISON: Portable chest 03/18/2019 INDICATION: Weakness IMPRESSION: Exam limited by soft tissue attenuation from patient's body habitus. 1. Lines and Tubes: None 2. Lungs are well-inflated. Patchy bibasilar atelectatic changes. Mild bilateral perihilar interstitial opacities suggesting mild interstitial edema. 3. Stable enlarged cardiac silhouette. Central pulmonary venous congestion. 4. No acute bony abnormalities. Signed by: Dr. Khanh Yu M.D. on 07/16/2019 6:18 PM
[2019-07-16 18:22] LABS: CREATINE KINASE MB 9.8 ng/mL (0-5.0); THYROID STIMULATING HORMONE 2.864 uIU/mL (0.350-4.940)
[2019-07-16] MEDS: SOD POLYSTYRENE SULFONATE SUSP 15 GM/60 ML BTL PO SCH (18:42)
[2019-07-16] MEDS ORDERED: SODIUM CHLORIDE FLUSH 10 ML SYR INJ PRN (18:45)
[2019-07-16] MEDS ORDERED: FUROSEMIDE INJ 10 MG/ML 4 ML VIAL IV ONE (18:45)
[2019-07-16] MEDS ORDERED: ONDANSETRON HCL INJ 2MG/ML 2ML 2 MG/ML VIAL IV PRN (18:45)
[2019-07-16] MEDS ORDERED: DEXTROSE 50% SYRINGE 50 ML IV PRN (18:45)
--- NOTE | 2019-07-16 19:00 | NUR ---
[facility] informed of orders for dialysis for tonight; per orders from concrete puddler public relations professional from Dr. Greene; informed that Pt is to have dialysis for two hours, Pt will be in INPT bed 285.
[2019-07-16 19:03] LABS: CLARITY,URINE SL CLOUDY (CLEAR); COLOR,URINE YELLOW (YELLOW)
[2019-07-16 19:04] LABS: BILIRUBIN,URINE NEGATIVE (NEGATIVE); KETONES,URINE NEGATIVE (NEGATIVE); LEUKOCYTE ESTERASE ,URINE NEGATIVE (NEGATIVE); NITRITE,URINE NEGATIVE (NEGATIVE); PROTEIN,URINE DIPSTICK 3+ (NEGATIVE); URINE UROBILINOGEN 0.2 mg/dL (0.2 - 1)
[2019-07-16 19:12] LABS: WBC,URINE (MAN) 0-5 /HPF (0-5)
[2019-07-16 19:13] LABS: AMORPHOUS SEDIMENT,URINE MODERATE (FEW); BACTERIA,URINE FEW /HPF; EPITHELIAL CELLS,URINE FEW /LPF; RENAL EPITHELIAL CELLS,URINE FEW
[2019-07-16] MEDS ORDERED: CALCIUM GLUCONATE 10% INJ 4.65 MEQ in SODIUM CHLORIDE 0.9% 100 ML IV ONE (19:15)
[2019-07-16 20:00] VITALS: BP 164/88
[2019-07-16] MEDS ORDERED: SODIUM CHLORIDE 0.9% 1000ML 2,000 ML ONE (20:40)
[2019-07-16] MEDS: FAMOTIDINE 20 MG/2 ML VIAL IV SCH (21:00)
[2019-07-16] MEDS: INSULIN REGULAR, HUMAN 100 UNIT/1 ML 3ML VIAL SQ SCH (21:00)
--- NOTE | 2019-07-16 21:45 | NUR ---
PT IS TRANSFERRED FROM ER .PT WAS LETHARGIC .TEM WAS 93.2 .BS WAS 59 .PT HAS LEFT IJ AND RT AC 20 G S/L .LEFT HAND AV GRAFT CALL ED SON TO GET THE INFORMATION .TELE PHONE CONSENT HAS GIVEN BY THE SON TO DIALYSIS .PT IS IS BLIND AND RT EAR DEAF .PT IS UNSTEADY .GAIT
[2019-07-17] VITALS (11 sets, daily range): BP systolic 121–182; BP diastolic 55–90
[2019-07-17 00:36] LABS: CREATINE KINASE 117 IU/L (30-200)
[2019-07-17] MEDS: HYDRALAZINE HCL 25 MG TAB PO SCH ×4 (01:05→21:16)
[2019-07-17] MEDS: AMLODIPINE BESYLATE 10 MG TAB PO SCH ×2 (01:05→06:10)
[2019-07-17 03:22] LABS: CREATINE KINASE MB 4.1 ng/mL (0-5.0)
--- NOTE | 2019-07-17 04:43 | NUR ---
GIVEN D50 AND BS CAME TO 169 GIVEN WARMER AND TEM CAME TO 98 PT WAS DIALYZED DURING THE THE SHIFT AND TOOK 3L .PT HAD BM AND URINATED X2 .PT RESTING NOW PT IS AOX3 .CALL LIGHT WITH IN REACH .CONTINUE TO MONITOR
[2019-07-17 05:56] LABS: BASOPHILS # (AUTO) 0.1 (0.0-0.1); BASOPHILS % 0.8 % (0.0-1.0); EOSINOPHILS # (AUTO) 0.1 (0.0-0.4); HEMATOCRIT 28.2 % (38.2-49.6); HEMOGLOBIN 9.6 g/dL (14.0-18.0); LYMPHOCYTES # (AUTO) 1.3 (1.0-3.2); LYMPHOCYTES % 19.6 % (18.0-39.1); MEAN CORPUSCULAR HEMOGLOBIN 29.3 pg (28-32); MONOCYTES # (AUTO) 0.6 (0.2-0.8); MONOCYTES % 8.9 % (4.4-11.3); NEUTROPHILS # (AUTO) 4.5 (2.1-6.9); NEUTROPHILS % 68.4 % (38.7-80.0); PLATELET COUNT 157 x10e3/uL (140-360); RED BLOOD COUNT 3.28 x10e6/uL (4.3-5.7); RED CELL DISTRIBUTION WIDTH 14.6 % (11.7-14.4)
--- NOTE | 2019-07-17 06:10 | NUR ---
PT RESTING .PT MOR ALERT THAN WHEN TRANSFERRED FROM ER .PT REFUSED KAYEXALATE .CALL LIGHT WITH IN REACH .CONTINUE TO MONITOR
[2019-07-17 06:22] LABS: ALBUMIN 3.4 g/dL (3.5-5.0); ALBUMIN/GLOBULIN RATIO 1.1 (0.8-2.0); ANION GAP 17.9 mmol/L (8-16); CALCIUM 8.3 mg/dL (8.4-10.2); CREATININE, SERUM 10.09 mg/dL (0.72-1.25); MAGNESIUM 2.2 MG/DL (1.3-2.1); PHOSPHORUS 7.6 MG/DL (2.3-4.7); POTASSIUM 4.9 mmol/L (3.5-5.1)
[2019-07-17] MEDS: SOD POLYSTYRENE SULFONATE SUSP 15 GM/60 ML BTL PO SCH ×2 (06:41→18:45)
--- NOTE | 2019-07-17 06:52 | NUR ---
RECEIVED BEDSIDE SHIFT REPORT FROM OFF GOING NURSE. PATIENT IS RESTING IN BED, NO ACUTE DISTRESS NOTED. CALL LIGHT WITHIN REACH. BED IN THE LOWEST POSITION.
--- NOTE | 2019-07-17 07:22 | NUR ---
BEDSIDE REPORT GIVEN TO THE ONCOMING NURSE
[2019-07-17] MEDS: INSULIN REGULAR, HUMAN 100 UNIT/1 ML 3ML VIAL SQ SCH ×4 (07:30→21:00)
[2019-07-17] MEDS ORDERED: SEVELAMER CARBONATE 800 MG TAB PO SCH (08:00)
[2019-07-17] MEDS ORDERED: EPOETIN ALFA-EPBX 10,000 UNIT/ML VIAL SC ONE (08:45)
[2019-07-17] MEDS ORDERED: SODIUM CHLORIDE 0.9% 1000ML 2,000 ML ONE (08:55)
[2019-07-17] MEDS: ASPIRIN 325 MG TAB PO SCH (09:00)
[2019-07-17] MEDS: FAMOTIDINE 20 MG/2 ML VIAL IV SCH ×2 (09:00→21:15)
[2019-07-17] MEDS: LEVETIRACETAM 500 MG TAB PO SCH ×2 (09:06→17:23)
[2019-07-17] MEDS: CINACALCET 30 MG TAB PO SCH (09:06)
[2019-07-17] MEDS: GABAPENTIN 400 MG CAP PO SCH ×2 (09:06→17:00)
[2019-07-17] MEDS: SEVELAMER CARBONATE 800 MG TAB PO SCH ×3 (09:06→17:00)
--- NOTE | 2019-07-17 09:30 | NUR ---
PATIENT STARTED DIALYSIS AT THIS TIME.
[2019-07-17] MEDS: TRIMETHOPRIM OU SCH ×2 (09:59→17:00)
[2019-07-17] MEDS: POLYMYXIN B SULFATE OU SCH ×2 (09:59→17:00)
--- NOTE | 2019-07-17 13:10 | NUR ---
Dialysis finished at this time. 2.1 L removed
--- NOTE | 2019-07-17 14:24 | Consultation ---
DATE OF CONSULTATION: 07/17/2019 REASON FOR CONSULTATION: End-stage renal disease. Thank you for allowing us to participate in Mr. Kruger's care. HISTORY OF PRESENT ILLNESS: This is a 58-year-old male, history of ESRD. He dialyzes Sunday, Sunday, Sunday. He has had trouble with high potassiums in the past. He was asked to stay at dialysis time of 4 hours and he has been complaining about that. He apparently got frustrated and quit coming. He does have some trouble with diet and eats out quite a bit as he is not living in his usual home town. He has loss of vision including diabetic retinopathy. Additionally, he is on lisinopril. He has trouble controlling his phosphorus. Unclear, if he has been taking his binders. He was supposed to be on Kayexalate also on a regular basis as an outpatient. Additionally, he takes Sensipar 30 mg once a day. PAST MEDICAL HISTORY: 1. Type 2 diabetes. 2. Diabetic nephropathy with end-stage renal disease. 3. Left upper extremity AV fistula. 4. Hypertension. 5. History of fluid overload. 6. History of recurrent hyperkalemia. 7. Secondary hyperparathyroid. 8. History of poorly-controlled phosphorus levels. 9. History of missing dialysis. HOME MEDICATIONS: 1. Amlodipine 10 mg a day. 2. Lisinopril 20 daily. 3. Gabapentin 400 b.i.d. 4. Pepcid. 5. Keppra 250 b.i.d. 6. Insulin as directed by General Medicine. 7. Sevelamer 1600 mg t.i.d. SOCIAL HISTORY: Lives with son. Currently not abusing alcohol or smoking. FAMILY HISTORY: No kidney problems. REVIEW OF SYSTEMS: CONSTITUTIONAL: Randall weak. CARDIAC: No angina or syncope. PSYCHIATRY: Frustrated with dialysis treatment times. ENDOCRINE: Says his sugars are well controlled. GI: Denying nausea, vomiting. HEENT: Loss of vision. Rest of review is negative. PHYSICAL EXAMINATION: GENERAL: Lying in bed, no distress. VITAL SIGNS: Temperature 97, blood pressure 153/69, pulse 65. HEENT: Grossly atraumatic. NECK: No JVD. CHEST: Faint crackles at the bases. EXTREMITIES: No edema. ABDOMEN: Benign. NEURO: Decreased vision. Speech is normal. CARDIAC: Normal heart tones. Rhythm sounds regular. LABORATORY DATA: Potassium was 6.8 at admission, coming down to 4.9, serum CO2 of 22, creatinine 10, BUN 63, phosphorus 7.6, calcium 8.3, magnesium 2.2. Hemoglobin is 9.6. ASSESSMENT: 1. End-stage renal disease. 2. Type 2 diabetes with nephropathy. 3. Hypertension. 4. Fluid overload based on chest x-ray. 5. Hyperkalemia that has been medically treated, but is recurrent. PLAN: Stop lisinopril as it may be contributing to his recurrent hyperkalemia. Scheduled dialysis today. We will discuss with dialysis staff. Keep the low-potassium diet. Encouraged to not eat out so much. Resume his home Sensipar as well as binders. Keep salt and water restricted. I did have a long talk with him about dialysis times given that his chemistries are poorly controlled at least on an outpatient basis favor leaving him on 4 hours unless he can better control it. As noted that it would be the better medical advice. He does say he gets wiped out toward the end. However, I think the discomfort is the lesser problem than the risk of cardiac arrest. MD ABIODUN [facility]/BRIGHT /[id number]
[2019-07-17] MEDS ORDERED: ATENOLOL50 MG PO (15:33)
--- NOTE | 2019-07-17 15:43 | NUR ---
Paged Dr. Mallory to notify that patient's BP have been updated on computer. No answer, LVM.
[2019-07-17] MEDS ORDERED: ONDANSETRON HCL 4 MG ORAL DISINTEGRATING TAB PO PRN (16:45)
[2019-07-17] MEDS: ATENOLOL 50 MG TAB PO SCH (17:23)
--- NOTE | 2019-07-17 18:50 | NUR ---
Bedside shift report given to oncoming nurse. Patient is resting in bed. No acute distress noted. Call light within reach. Bed in the lowest position. Bed alarm on.
--- NOTE | 2019-07-17 20:15 | NUR ---
RECEIVED PT IN BED AOX3 .NO ACUTE DISTRESS NOTED DENIES PAIN .CALL LIGHT WITH IN REACH .CONTINUE TO MONITOR
[2019-07-17 20:57] LABS: CREATINE KINASE MB 4.3 ng/mL (0-5.0)
[2019-07-17] MEDS: ATORVASTATIN 40 MG TAB PO SCH (21:16)
[2019-07-18] VITALS (8 sets, daily range): BP systolic 142–163; BP diastolic 66–86
--- NOTE | 2019-07-18 06:01 | NUR ---
PT RESTED DURING THE NIGHT .DENIES PAIN
[2019-07-18] MEDS: AMLODIPINE BESYLATE 10 MG TAB PO SCH (06:22)
--- NOTE | 2019-07-18 07:19 | NUR ---
BEDSIDE REPORT GIVEN TO THE ONCOMING NURSE
[2019-07-18] MEDS: INSULIN REGULAR, HUMAN 100 UNIT/1 ML 3ML VIAL SQ SCH ×4 (07:30→21:00)
[2019-07-18] MEDS: SEVELAMER CARBONATE 800 MG TAB PO SCH ×3 (08:00→17:11)
[2019-07-18] MEDS: TRIMETHOPRIM OU SCH ×2 (09:00→17:00)
[2019-07-18] MEDS: POLYMYXIN B SULFATE OU SCH ×2 (09:00→17:00)
[2019-07-18] MEDS: HYDRALAZINE HCL 25 MG TAB PO SCH ×3 (09:00→21:18)
[2019-07-18] MEDS: FAMOTIDINE 20 MG/2 ML VIAL IV SCH ×2 (09:00→21:18)
[2019-07-18 10:05] LABS: PHOSPHORUS 3.5 MG/DL (2.3-4.7)
[2019-07-18 10:25] LABS: FERRITIN 601.8 ng/mL (21.81-274.66)
[2019-07-18] MEDS: LEVETIRACETAM 500 MG TAB PO SCH ×2 (12:18→17:11)
[2019-07-18] MEDS: GABAPENTIN 400 MG CAP PO SCH ×2 (12:18→17:11)
[2019-07-18] MEDS: ATENOLOL 50 MG TAB PO SCH (12:18)
[2019-07-18] MEDS: CINACALCET 30 MG TAB PO SCH (12:18)
[2019-07-18] MEDS: ASPIRIN 325 MG TAB PO SCH (12:20)
--- NOTE | 2019-07-18 19:00 | NUR ---
Received patient awake, not in distress, call light within easy reach, advised to call anytime when needed, bed alarm activated, will continue to monitor
[2019-07-18] MEDS: ATORVASTATIN 40 MG TAB PO SCH (21:18)
[2019-07-19] VITALS (9 sets, daily range): BP systolic 108–158; BP diastolic 56–77
[2019-07-19] MEDS: AMLODIPINE BESYLATE 10 MG TAB PO SCH (05:51)
--- NOTE | 2019-07-19 07:25 | NUR ---
walking rounds done with yan RN, call light within easy reach
[2019-07-19] MEDS: SEVELAMER CARBONATE 800 MG TAB PO SCH ×3 (08:03→16:50)
[2019-07-19] MEDS: LEVETIRACETAM 500 MG TAB PO SCH ×2 (08:05→16:50)
[2019-07-19] MEDS: GABAPENTIN 400 MG CAP PO SCH ×2 (08:05→16:50)
[2019-07-19] MEDS: HYDRALAZINE HCL 25 MG TAB PO SCH ×3 (08:05→21:00)
[2019-07-19] MEDS: CINACALCET 30 MG TAB PO SCH (08:05)
[2019-07-19] MEDS: ATENOLOL 50 MG TAB PO SCH (08:05)
[2019-07-19] MEDS: ASPIRIN 325 MG TAB PO SCH (08:05)
[2019-07-19] MEDS: FAMOTIDINE 20 MG/2 ML VIAL IV SCH ×2 (08:10→21:00)
[2019-07-19] MEDS: INSULIN REGULAR, HUMAN 100 UNIT/1 ML 3ML VIAL SQ SCH ×4 (08:34→21:00)
[2019-07-19] MEDS: POLYMYXIN B SULFATE OU SCH ×2 (09:00→17:00)
[2019-07-19] MEDS: TRIMETHOPRIM OU SCH ×2 (09:00→17:00)
--- NOTE | 2019-07-19 10:00 | NUR ---
pt resting in bed, no distress or pain
--- NOTE | 2019-07-19 17:10 | NUR ---
pt hr checked manually , rate is 58. pt has no distress at time
--- NOTE | 2019-07-19 18:35 | NUR ---
pt resting in bed, no distress, report given to oncoming shift
--- NOTE | 2019-07-19 20:15 | NUR ---
Received change of shift report from AM nurse. Walking rounds completed.
[2019-07-19] MEDS: ATORVASTATIN 40 MG TAB PO SCH (21:00)
--- NOTE | 2019-07-19 21:00 | NUR ---
Patient AAOx3. Denies pain at this time. Received 3 units of insulin for BS 161 ti right side of abdomin. Also received 9pm snack.
[2019-07-20] VITALS (8 sets, daily range): BP systolic 119–141; BP diastolic 56–67
--- NOTE | 2019-07-20 | NUR ---
Patient resting quitly with no c/o at this time. Continue monitor.
[2019-07-20] MEDS: AMLODIPINE BESYLATE 10 MG TAB PO SCH (05:26)
[2019-07-20] MEDS: INSULIN REGULAR, HUMAN 100 UNIT/1 ML 3ML VIAL SQ SCH ×4 (07:30→21:00)
[2019-07-20] MEDS: SEVELAMER CARBONATE 800 MG TAB PO SCH ×3 (08:36→17:04)
[2019-07-20] MEDS: TRIMETHOPRIM OU SCH ×2 (08:36→17:00)
[2019-07-20] MEDS: FAMOTIDINE 20 MG/2 ML VIAL IV SCH ×2 (08:36→21:00)
[2019-07-20] MEDS: POLYMYXIN B SULFATE OU SCH ×2 (08:36→17:00)
[2019-07-20] MEDS: HYDRALAZINE HCL 25 MG TAB PO SCH ×3 (08:36→21:00)
[2019-07-20] MEDS: CINACALCET 30 MG TAB PO SCH (08:37)
[2019-07-20] MEDS: LEVETIRACETAM 500 MG TAB PO SCH ×2 (08:37→17:04)
[2019-07-20] MEDS: ASPIRIN 325 MG TAB PO SCH (08:37)
[2019-07-20] MEDS: ATENOLOL 50 MG TAB PO SCH (08:37)
[2019-07-20] MEDS: GABAPENTIN 400 MG CAP PO SCH ×2 (08:37→17:04)
--- NOTE | 2019-07-20 13:09 | NUR ---
Assisted patient to rest room, he tolerated lunch, denies any pain, no distress, call light in reach, keep monitoring
--- NOTE | 2019-07-20 19:30 | NUR ---
Received change of shift report from AM nurse. Walking rounds completed.
[2019-07-20] MEDS: ATORVASTATIN 40 MG TAB PO SCH (21:00)
--- NOTE | 2019-07-20 22:35 | NUR ---
Patient c/o lip twitching, legs not moving and burning across chest. Called and s/w Dr Mallory. Dr Mallory states patient is fine. He will see him tomorrow. Patient informed what MD said. Patient said ok.
[2019-07-21] VITALS: BP 131/63
[2019-07-21 04:00] VITALS: BP 152/75
[2019-07-21] MEDS: AMLODIPINE BESYLATE 10 MG TAB PO SCH (05:17)
[2019-07-21] MEDS: INSULIN REGULAR, HUMAN 100 UNIT/1 ML 3ML VIAL SQ SCH ×2 (07:30→11:30)
[2019-07-21 08:00] VITALS: BP 128/66
[2019-07-21] MEDS: ASPIRIN 325 MG TAB PO SCH (08:21)
[2019-07-21] MEDS: GABAPENTIN 400 MG CAP PO SCH (08:27)
[2019-07-21] MEDS: CINACALCET 30 MG TAB PO SCH (08:27)
[2019-07-21] MEDS: POLYMYXIN B SULFATE OU SCH (08:27)
[2019-07-21] MEDS: LEVETIRACETAM 500 MG TAB PO SCH (08:27)
[2019-07-21] MEDS: FAMOTIDINE 20 MG/2 ML VIAL IV SCH (08:27)
[2019-07-21] MEDS: TRIMETHOPRIM OU SCH (08:27)
[2019-07-21] MEDS: SEVELAMER CARBONATE 800 MG TAB PO SCH ×2 (08:27→14:10)
[2019-07-21 08:32] VITALS: BP 152/75
[2019-07-21] MEDS ORDERED: EPOETIN ALFA-EPBX 10,000 UNIT/ML VIAL SC ONE (08:45)
[2019-07-21] MEDS: HYDRALAZINE HCL 25 MG TAB PO SCH ×2 (09:00→15:08)
[2019-07-21] MEDS: ATENOLOL 50 MG TAB PO SCH (09:00)
--- NOTE | 2019-07-21 09:57 | NUR ---
Patient resting in bed, Dialysis nurse in room, Dr Mallory had rounds, patient not in any distress
[2019-07-21] MEDS ORDERED: SODIUM CHLORIDE 0.9% 1000ML 2,000 ML ONE (09:58)
--- NOTE | 2019-07-21 11:23 | Progress Note ---
DATE: 07/21/2019 SUBJECTIVE: Due for dialysis today. He is generally upset about waiting 4 hours on the outpatient side. I explained to him that often times he has a lot of fluid, which he accumulates, as potassium remains uncontrolled. Medically speaking, I would be unable to justify cutting down home outpatient dialysis time as this does help maintain both fluid control and potassium control. He is also upset about not being able to eat whatever food he likes, this is unfortunate, but as a result of his kidney disease. PHYSICAL EXAMINATION: VITAL SIGNS: Temperature 96.7, pulse 53, blood pressure 128/66. CHEST: Faint crackles at the bases. EXTREMITIES: No edema. NEURO: Alert, appropriate. LABORATORY DATA: Last K was still 4.9. Last hemoglobin was 9.6. ASSESSMENT: 1. End-stage renal disease. 2. Diabetic nephropathy. 3. Hyperkalemia, now controlled. 4. History of missing dialysis. 5. History of wanting less dialysis tunnel in the presence of inadequately controlled blood chemistries. PLAN: 1. Hemodialysis today 3-1/2 hour run per his request. He is refusing to stay any longer. 2. Potassium bath, blood flow rate 350 mL/minute, dialysate flow rate 700 mL/minute. We will try to get 3-4 L of fluid off. 3. Also asked him to be careful about diet, fluid intake, and if possible just plan avoid eating out as it tends to be his biggest problem. MD ABIODUN Murray/BRIGHT /[id number]
[2019-07-21 11:28] VITALS: BP 125/67
--- NOTE | 2019-07-21 14:11 | NUR ---
ORDER RECEIVED TO CONFIRM CHAIR TIME AND TRANSPORTATION. CALL TO TWIN Matthews JESSICAMOISÉS @ [phone]. STATES THE PT HAS A CHAIR TIME: MWF @ 420PM. STATES THEY LIKE FOR THE PT TO ARRIVE BY 4PM. STATES THE SON USUALLY BRINGS THE PT FOR HIS TREATMENTS. STATES THE PT USUALLY DOES NOT WANT TO COME TO DIALYSIS AND THIS IS WHY HE MISSES SO MANY TREATMENTS. PLACE A CALL TO THE SON, NELSON, AT [phone]. Addendum: 07/21/19 at 1428 by Tanisha Lal CM SON STATES THE PT DOES NOT HAVE ISSUES WITH TRANSPORTATION. STATES HE CHOOSES TO SKIP HIS TREATMENTS. STATES HE IS PREPARED TO PICK THE PT UP ONCE HIS HD IS COMPLETED. INFORMED HIM JIM MEADOWS REQUESTED THE PT ARRIVE AT 4PM ON SUNDAY. VERBALIZED UNDERSTANDING. INQUIRED IF THE PT IS WALKING. REFERRED TO THE PT NOTE AND PT AMBULATING WELL.
--- NOTE | 2019-07-21 14:30 | NUR ---
SPOKE Byron DOVER TO INFORM PT OK TO DC HOME TODAY. JAZZMINE WILL CALL DR. BENNETT FOR DC ORDER.
--- NOTE | 2019-07-21 14:54 | NUR ---
Per Case management (mrs saunders) HD facility, transportation everything is been arranged by His son (Saskia Owens). And per son patient discharge to go Home with him. Notified Dr Mallory , new discharge order received, patient aware about it
[2019-07-21 15:45] VITALS: BP 174/76
--- NOTE | 2019-07-21 17:09 | NUR ---
Patient discharged home, Alert with no distress, 2 IV lines removed with tip intact, pressure bandage applied, No new prescription from Dr Mallory, discharge instruction given, patient aware about his Dialysis appointment on Sunday, Talked to his son, family member here to pick him, Transported via wheelchair to [facility].
== END 2019-07-21 16:49 | disposition home or self-care (01) | DRG 640 ==
LOC: ER 16:48 → ERHOLD 18:40 → MED/SURG3 20:19
PROVIDERS: ADMIT Internal Medicine; ATTEND Internal Medicine
PROC: 5A1D70Z Performance of Urinary Filtration, Intermittent, Less than 6 Hours Per Day (ICD-10-PCS; principal; 2019-07-16)
DX: E87.79 Other fluid overload (principal); N18.6 End stage renal disease; I12.0 Hypertensive chronic kidney disease with stage 5 chronic kidney disease or end stage renal disease; R44.0 Auditory hallucinations; E11.22 Type 2 diabetes mellitus with diabetic chronic kidney disease; Z99.2 Dependence on renal dialysis; Z91.15 Patient's noncompliance with renal dialysis; E87.5 Hyperkalemia; E11.21 Type 2 diabetes mellitus with diabetic nephropathy; H54.7 Unspecified visual loss; Z79.4 Long term (current) use of insulin; R00.1 Bradycardia, unspecified; E11.40 Type 2 diabetes mellitus with diabetic neuropathy, unspecified; R44.1 Visual hallucinations
CPT/HCPCS: 36415; 71045; 80053; 81001; 82550; 82553; 82728; 82948; 83540; 83690; 83735; 83880; 84100; 84443; 84466; 84484; 85025; 85610; 85730; 86704; 86706; 87086; 87340; 90962; 93005; 97139; 99284; J0610; J1817; J1940; J7030; J7050; J7799

== ENCOUNTER 2020-01-19 08:35 | Inpatient (IN) | payer MEDICARE ==
[~2020-01-19] VITALS: Ht 185.4 cm; Wt 99.8 kg
[2020-01-19] VITALS (13 sets, daily range): BP systolic 146–202; BP diastolic 67–102
[~2020-01-19 08:35] MED LIST changes: +ATENOLOL50 MG PO
--- NOTE | 2020-01-19 08:35 | NUR ---
EKG DONE ON ARRIVAL. DR DEAN EVALUATING PATIENT
[2020-01-19] MEDS ORDERED: SODIUM BICARBONATE 8.4% INJ 50 ML SYR IV STA ×2 (08:46→10:07)
[2020-01-19] MEDS ORDERED: ONDANSETRON HCL INJ 2MG/ML 2ML 2 MG/ML VIAL IV STA (08:52)
[2020-01-19] MEDS ORDERED: GLUCAGON FOR INJ 1 MG VIAL IV ONE (09:00)
[2020-01-19] MEDS ORDERED: CALCIUM GLUCONATE 10% INJ 4.65 MEQ in SODIUM CHLORIDE 0.9% 50ML 50 ML IV ONE ×2 (09:00→10:45)
[2020-01-19 09:17] LABS: BASOPHILS # (AUTO) 0.1 (0.0-0.1); BASOPHILS % 0.6 % (0.0-1.0); EOSINOPHILS # (AUTO) 0.2 (0.0-0.4); EOSINOPHILS % 1.7 % (0.0-6.0); HEMATOCRIT 35.1 % (38.2-49.6); HEMOGLOBIN 11.6 g/dL (14.0-18.0); LYMPHOCYTES # (AUTO) 1.9 (1.0-3.2); LYMPHOCYTES % 16.5 % (18.0-39.1); MEAN CORPUSCULAR HEMOGLOBIN 30.9 pg (28-32); MEAN CORPUSCULAR VOLUME 93.4 fL (81-99); MONOCYTES # (AUTO) 0.6 (0.2-0.8); MONOCYTES % 5.6 % (4.4-11.3); NEUTROPHILS # (AUTO) 8.5 (2.1-6.9); NEUTROPHILS % 75.2 % (38.7-80.0); PLATELET COUNT 237 x10e3/uL (140-360); RED BLOOD COUNT 3.76 x10e6/uL (4.3-5.7)
[2020-01-19 09:45] LABS: ALBUMIN 3.9 g/dL (3.5-5.0); ANION GAP 26.3 mmol/L (8-16); CALCIUM 8.6 mg/dL (8.4-10.2); CREATININE, SERUM 9.57 mg/dL (0.72-1.25); MAGNESIUM 2.4 MG/DL (1.3-2.1)
[2020-01-19 09:52] LABS: POTASSIUM 7.3 mmol/L (3.5-5.1)
[2020-01-19 09:54] LABS: CREATINE KINASE MB 4.1 ng/mL (0-5.0)
[2020-01-19 09:57] LABS: INR 0.95; PROTHROMBIN TIME 13.1 seconds (11.9-14.5)
[2020-01-19 09:58] LABS: PARTIAL THROMBOPLASTIN TIME 31.5 seconds (23.8-35.5)
[2020-01-19] MEDS ORDERED: INSULIN REGULAR, HUMAN 100 UNIT/1 ML 3ML VIAL IV ONE (10:15)
[2020-01-19] MEDS ORDERED: DEXTROSE 50% SYRINGE 50 ML IV ONE (10:15)
[2020-01-19] MEDS ORDERED: POLYETHYLENE GLYCOL 3350 17 GM PACK PO PRN (11:15)
[2020-01-19] MEDS ORDERED: ONDANSETRON HCL INJ 2MG/ML 2ML 2 MG/ML VIAL IV PRN (11:15)
[2020-01-19] MEDS ORDERED: ACETAMINOPHEN 325 MG TAB PO PRN (11:15)
--- NOTE | 2020-01-19 11:21 | Emergency Department Note ---
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 PATIENT WEARS HOME OXYGEN 2L/NC. 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 PATIENT PALE. C/O OF PAIN W/DEEP BREATHING DESCRIBED PRESSURE. PATIENT BLIND/SCHEDULED M/W/F DIALYSIS LAST HD ON SUNDAY 3 D AGO. Historian: Patient Arrival Mode: Car State Attorney Required: No Onset (how long ago): hour(s) Location: CHEST AND ABD Quality: PAIN Radiation: Reports non-radiation Severity: moderate Onset quality: sudden Timing of current episode: constant Progression: worsening Chronicity: recurrent Context: Denies recent illness Relieving factors: none Exacerbating factors: none Associated symptoms: Reports chest pain, Reports nausea/vomiting, Reports shortness of breath, Reports weakness (AND NEAR-SYNCOPE); Denies cough, Denies fever/chills Past Medical/Family History Physician Review I have reviewed the patient's past medical and family history. Any updates have been documented here. 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 Other Surgery: LEFT FISTULA Social History Smoking Cessation: Never Smoker Counseling Performed: No Alcohol Use: Occasional Any Illegal Drug Use: No TB Exposure/Symptoms: No Physically hurt or threatened: No Family History Family history of heart diseas: No Other Last Tetanus: UNKNOWN Any Pre-Existing Lines (PICC,: No Review of Systems Review of Systems Constitutional: Reports as per HPI EENTM: Reports no symptoms Cardiovascular: Reports as per HPI Respiratory: Reports as per HPI Gastrointestinal: Reports as per HPI Genitourinary: Reports no symptoms Musculoskeletal: Reports no symptoms Integumentary: Reports no symptoms Neurological: Reports as per HPI Psychological: Reports no symptoms Endocrine: Reports no symptoms Hematological/Lymphatic: Reports no symptoms Physical Exam Related Data Allergies: Coded Allergies: No Known Allergies (Unverified , 01/19/20) Triage Vital Signs Vital Signs Date Time Temp Pulse Resp B/P (MAP) Pulse Ox O2 Delivery O2 Flow Rate FiO2 01/19/20 08:46 97.8 33 18 112/58 Room Air 01/19/20 08:57 100 2 Vital signs reviewed: Yes Physical Exam CONSTITUTIONAL Constitutional: Present well-developed, Present ill appearing HENT HENT: Present normocephalic, Present atraumatic, Present oropharynx clear/moist, Present nose normal HENT L/R: Present left ext ear normal, Present right ext ear normal EYES Eyes: Reports other (LEFT EYE WITH CLOUDY SCLERA/CONJUNCTIVA) NECK Neck: Present ROM normal PULMONARY Pulmonary: Present effort normal, Present breath sounds normal CARDIOVASCULAR Cardiovascular: Present regular rhythm, Present bradycardia, Present murmur (2/6 SYSTOLIC), Present LLE edema, Present RLE edema GASTROINTESTINAL Abdominal: Present soft, Present bowel sounds normal, Present tender (MOD RUQ/MILAD); Absent guarding, Absent rebound GENITOURINARY Genitourinary: Present exam deferred SKIN Skin: Present warm, Present other (DIAPHORETIC) MUSCULOSKELETAL Musculoskeletal: Present ROM normal NEUROLOGICAL Neurological: Present alert, Present oriented x 3, Present no gross motor or sensory deficits PSYCHOLOGICAL Psychological: Present mood/affect normal, Present judgement normal Results Laboratory Result Diagram: 01/19/20 0857 01/19/20 0857 Laboratory Laboratory Tests Test 01/19/20 08:57 01/19/20 08:52 White Blood Count 11.28 x10e3/uL (4.8-10.8) Red Blood Count 3.76 x10e6/uL (4.3-5.7) Hemoglobin 11.6 g/dL (14.0-18.0) Hematocrit 35.1 % (38.2-49.6) Mean Corpuscular Volume 93.4 fL (81-99) Mean Corpuscular Hemoglobin 30.9 pg (28-32) Mean Corpuscular Hemoglobin Concent 33.0 g/dL (31-35) Red Cell Distribution Width 17.0 % (11.7-14.4) Platelet Count 237 x10e3/uL (140-360) Neutrophils (%) (Auto) 75.2 % (38.7-80.0) Lymphocytes (%) (Auto) 16.5 % (18.0-39.1) Monocytes (%) (Auto) 5.6 % (4.4-11.3) Eosinophils (%) (Auto) 1.7 % (0.0-6.0) Basophils (%) (Auto) 0.6 % (0.0-1.0) Neutrophils # (Auto) 8.5 (2.1-6.9) Lymphocytes # (Auto) 1.9 (1.0-3.2) Monocytes # (Auto) 0.6 (0.2-0.8) Eosinophils # (Auto) 0.2 (0.0-0.4) Basophils # (Auto) 0.1 (0.0-0.1) Absolute Immature Granulocyte (auto 0.04 x10e3/uL (0-0.1) Prothrombin Time 13.1 seconds (11.9-14.5) Prothromb Time International Ratio 0.95 Activated Partial Thromboplast Time 31.5 seconds (23.8-35.5) Sodium Level 127 mmol/L (136-145) Potassium Level 7.3 mmol/L (3.5-5.1) Chloride Level 88 mmol/L (98-107) Carbon Dioxide Level 20 mmol/L (22-29) Anion Gap 26.3 mmol/L (8-16) Blood Urea Nitrogen 49 mg/dL (7-26) Creatinine 9.57 mg/dL (0.72-1.25) Estimat Glomerular Filtration Rate 6 ML/MIN (60-) BUN/Creatinine Ratio 5 (6-25) Glucose Level 269 mg/dL (74-118) Calcium Level 8.6 mg/dL (8.4-10.2) Magnesium Level 2.4 MG/DL (1.3-2.1) Total Bilirubin 0.6 mg/dL (0.2-1.2) Aspartate Amino Transf (AST/SGOT) 18 IU/L (5-34) Alanine Aminotransferase (ALT/SGPT) 15 IU/L (0-55) Alkaline Phosphatase 90 IU/L (40-150) Creatine Kinase 125 IU/L (30-200) Creatine Kinase MB 4.10 ng/mL (0-5.0) Troponin I 0.042 ng/mL (0-0.300) B-Type Natriuretic Peptide 1022.5 pg/mL (0-100) Total Protein 7.9 g/dL (6.5-8.1) Albumin 3.9 g/dL (3.5-5.0) Globulin 4.0 g/dL (2.3-3.5) Albumin/Globulin Ratio 1.0 (0.8-2.0) Lipase 25 U/L (8-78) Bedside Glucose 305 mg/dL (70-120) Lab results reviewed: Yes Imaging Imaging Comments DR MOHAN HERE - WANTS PT TO BE DIALYZED PRIOR TO CT BRAIN AND ABDOMEN Procedures 12 Lead ECG Interpretation ECG Interpretation : ECG: ECG 1 State Attorney: Interpreted by ED physician Date: Jan 19, 2020 Time: 08:34 Rhythm: sinus bradycardia Rate: bradycardia (34) QRS axis: normal Clinical Impression: abnormal ECG Additional Comments NON-SPECIFIC ST & TW CHANGES Critical Care Time Total Critical Care Time (min): 45 Critical care time exclusive o: separately billable procedures Critcal care necessary due to: cardiac failure, circulatory failure, metabolic failure Critcal care time spent by me: discussion w consultants, discussion w primary provider, evaluation patient response to tx, order/perform tx or interventions, order/review laboratory studies, order/review radiographic studies, re- evaluation of patient condition, review of old charts Assessment & Plan Medical Decision Making MDM PT WITH SYMPTOMATIC MATTHEW, WE MOVED HIM TO ROOM 10 IMMEDIATELY AND GETTING FROM W/C TO BED HE HAD NEAR-SYNCOPE WITH MILD BRIEF CONVULSIONS, NEVER LOST CONSCIOUSNESS COMPLETELY, IV ESTABLISHED AND SINCE PT IS RENAL PT I ASSUMED HE WAS HYPERKALEMIC, ALSO ON BETA-LISA - ORDERED CALCIUM GLUC AND BICARB AND GLUCAGON (? BETA-LISA TOXICITY) - CBC, CHEM, CARDIACS, ECG, LIPASE, PANCX'S, CXR, CT BRAIN, CXR, CT ABD/PELVIS - EVALUATE FOR HYPERKALEMIA, ELECTROLYTE ABNL, SICK SINUS SYNDROME, STEMI/NSTEMI, PANCREATITIS, CHOLECYSTITIS, CEREBRAL BLEED Reassessment Reassessment IMPROVED WITH BICARB AND CALCIUM - HEART RATE WENT TO 85-90, I CALLED DR ELI FOR IMMEDIATE HD DUE TO LIKELY HYPER-K (STILL PENDING) ADMITTED TO DR FORD, DR MOHAN HERE TO DO HD Assessment & Plan Final Impression: (1) Symptomatic bradycardia (2) ESRD (end stage renal disease) on dialysis (3) Abdominal pain (4) Hyperkalemia (5) Weakness Depart Disposition: ADMITTED Last Vital Signs Date Time Temp Pulse Resp B/P (MAP) Pulse Ox O2 Delivery O2 Flow Rate FiO2 01/19/20 08:57 32 17 121/63 100 Nasal Cannula 2 01/19/20 08:46 97.8 Home Meds Reported Medications Atenolol (ATENOLOL) 50 Mg Tablet, 50 MG PO DAILY 07/17/19 Insulin NPH Hum/Reg Insulin Hm (Novolin 70-30 Flexpen) 100 Unit/1 Ml Insuln.pen, UNITS SQ BID 03/18/19 Polymyxin B Sulfate/Tmp (POLYMYXIN B-TMP EYE DROPS) 10 Ml Drops, 1 EACH OU BID 03/18/19 Atorvastatin Calcium (ATORVASTATIN CALCIUM) 40 Mg Tablet, 40 MG PO HS 03/18/19 Amlodipine Besylate (AMLODIPINE BESYLATE) 10 Mg Tablet, 5 MG PO DAILY 03/18/19 Aspirin (ASPIRIN) 325 Mg Tablet, 325 MG PO DAILY 03/18/19 Sevelamer Carbonate (Sevelamer Carbonate) 800 Mg Tablet, 1600 MG PO TID 03/18/19 Levetiracetam (LEVETIRACETAM) 250 Mg Tablet, 250 MG PO BID 03/18/19 Gabapentin (GABAPENTIN) 400 Mg Capsule, 400 MG PO BID 03/18/19 Hydralazine Hcl (HYDRALAZINE HCL) 25 Mg Tab, 50 MG PO TID 03/18/19 Medications in the ED Calcium Gluconate 4.65 meq/Sodium Chloride 60 ml @ 60 mls/hr ONCE ONCE IV Last administered on 01/19/20at 09:19; Admin Dose 60 MLS/HR; Start 01/19/20 at 09:00; Stop 01/19/20 at 09:59; Status DC Sodium Bicarbonate 50 ml NOW STAT IV Last administered on 01/19/20at 09:09; Admin Dose 50 ML; Start 01/19/20 at 08:46; Stop 01/19/20 at 08:51; Status DC Ondansetron HCl 4 mg NOW STAT IV ; Start 01/19/20 at 08:52; Stop 01/19/20 at 09:48; Status DC Glucagon 2 mg ONCE ONCE IV Last administered on 01/19/20at 09:08; Admin Dose 2 MG; Start 01/19/20 at 09:00; Stop 01/19/20 at 09:01; Status DC Sodium Bicarbonate 50 ml NOW STAT IV Last administered on 01/19/20at 10:59; Admin Dose 50 ML; Start 01/19/20 at 10:07; Stop 01/19/20 at 10:39; Status DC Insulin Human Regular 10 unit ONCE ONCE IV Last administered on 01/19/20at 10:59; Admin Dose 10 UNIT; Start 01/19/20 at 10:15; Stop 01/19/20 at 10:38; Status DC Dextrose 25 ml NOW ONCE IV Last administered on 01/19/20at 10:59; Admin Dose 25 ML; Start 01/19/20 at 10:15; Stop 01/19/20 at 10:16; Status DC GATO DEAN MD Jan 19, 2020 11:21
--- NOTE | 2020-01-19 12:26 | Consultation ---
DATE OF CONSULTATION: This is a stat consultation called in the ER. HISTORY OF PRESENT ILLNESS: A 59-year-old gentleman, underlying end-stage renal disease, who presented with shortness of breath, weakness, missed his dialysis, found to have life-threatening hyperkalemia with ECG changes, sinus saul with pauses on the monitor. He was given dextrose, insulin, calcium and bicarbonate. Initial potassium 7.3, bicarbonate 20, creatinine 9.57, and blood sugar 305. BNP 1022. White count 11.2 and hemoglobin 11.6. The patient is quite weak. States he is talking to me. He is oriented x3, but quite weak. Oxygen saturation 100%. Systolic blood pressure 158 at the moment. I am really cycling another pressure. Right now, his heart rate is in the 30s with peaked T-waves and pauses. QRS appears narrow so far. He is a known diabetic, underlying end-stage renal disease, multiple comorbidities, underlying history of hyperlipidemia, diabetes with end-organ damage, history of coronary artery disease, history of peripheral neuropathy, has a left forearm AV graft. He has a history of recurrent hyperkalemia, poorly controlled phosphorus level, relatively noncompliant to fluid and salt restriction as well as diet. HOME MEDICATIONS: Include lisinopril, gabapentin, Pepcid, Keppra, insulin, and Renagel. SOCIAL HISTORY: Does not smoke or drink now. Used to smoke or drink in the past. Lives with his son. FAMILY HISTORY: Significant for diabetes. PHYSICAL EXAMINATION: GENERAL: The patient is awake, alert, and oriented x3. Looks quite weak, lying supine. States he has more weakness in the lower extremity than upper. VITAL SIGNS: As mentioned. Respiratory rate is 20. HEAD AND NECK: Arcus senilis noted. Oral mucosa limited exam, but moist. Neck veins distended. LUNGS: Bibasilar rales. HEART: S1 and S2 audible. Irregular rhythm. ABDOMEN: Otherwise soft, distended, and nontender. EXTREMITIES: Lower extremity, no edema. IMPRESSION AND PLAN: Life-threatening hyperkalemia with ECG changes, metabolic acidosis, and fluid overload. Dr. Ordoñez, myself, and a couple of nurses are at bedside, we are right now pushing dextrose, insulin, bicarbonate further doses. The patient is oriented x3, albeit quite weak. Dialysis nurse on standby as soon as the patient is transferred to ICU, we will dialyze for his life-threatening hyperkalemia. We will order chest x-ray. CT has been ordered. We will do that after dialysis. The patient also complains of a cyst, which is noticed between his scrotum and anus. I am going to have General Surgery come by and take a look. Please see orders. MD BRADLEY Marrero/BRIGHT /[id number]
[2020-01-19] MEDS: HYDRALAZINE HCL 20 MG/ML VIAL IV PRN (14:36)
[2020-01-19 14:37] LABS: ALBUMIN 3.7 g/dL (3.5-5.0); ANION GAP 20.4 mmol/L (8-16); CALCIUM 8.7 mg/dL (8.4-10.2); CREATININE, SERUM 5.46 mg/dL (0.72-1.25); POTASSIUM 4.4 mmol/L (3.5-5.1)
[2020-01-19 14:54] LABS: CREATINE KINASE MB 3.7 ng/mL (0-5.0)
[2020-01-19] MEDS: AMLODIPINE BESYLATE 5 MG TAB PO SCH (16:45)
[2020-01-19] MEDS: DOCUSATE SODIUM 100 MG CAP PO SCH (16:45)
[2020-01-19] MEDS: FAMOTIDINE 20 MG/2 ML VIAL IV SCH (16:45)
--- NOTE | 2020-01-19 16:59 | Diagnostic Imaging Report ---
TECHNIQUE: Frontal view of the chest. INDICATION: ^sob ^[id number] ^[id number] ^Y COMPARISON: 07/16/2019 DISCUSSION: Limited evaluation due to portable technique. Lines and hardware: Overlying EKG leads are noted Heart and mediastinum: Cardiomediastinal silhouette is mildly enlarged. Central vascular congestion is noted. Lungs and pleura: No focal airspace consolidation. No pleural effusion. No pneumothorax. Soft tissues and bones: No acute abnormality. IMPRESSION: Cardio megaly and central vascular congestion are noted. Negative for focal consolidation or effusion. Signed by: Anurag Sotelo MD on 01/19/2020 4:56 PM
[2020-01-19] MEDS: SEVELAMER CARBONATE 800 MG TAB PO SCH (17:41)
--- NOTE | 2020-01-19 18:36 | Diagnostic Imaging Report ---
EXAMINATION: Head CT HISTORY: Abdominal pain, nausea, difficulty breathing, ESRD. COMPARISON: None. TECHNIQUE: Helical axial images of the head were obtained. Reformatted coronal and sagittal images from the axial data. Dose modulation, iterative reconstruction, and/or weight based adjustment of the mA/kV was utilized to reduce the radiation dose to as low as reasonably achievable. Image quality: Motion/streaking artifact limits the evaluation of the skull base and posterior cranial fossa. FINDINGS: Parenchyma: 1. Described pulmonary hypodensities, likely nonspecific chronic microvascular ischemic changes. 2. No mass or hemorrhage. No CT evidence of acute territorial vascular insult. Extra-axial spaces:No abnormal density. No extra-axial fluid collections Brain volume: Normal for age. Ventricles: No hydrocephalus or displacement. Arteries: Prominent atherosclerotic calcification of the intra and extracranial vessels, likely related to chronic renal disease. Dural sinuses: No abnormal density. Foramen magnum: No mass, Chiari malformation, or basilar invagination. Sella: No obvious mass. Paranasal/mastoid sinuses: Imaged portions unremarkable. Skull/Scalp: No lytic or blastic lesions. No fractures. IMPRESSION: 1. No acute intracranial abnormalities. 2. Mild chronic microvascular ischemic changes. Signed by: Dr. Jessie Galan M.D. on 01/19/2020 6:32 PM
--- NOTE | 2020-01-19 19:27 | Diagnostic Imaging Report ---
EXAM: CT Chest, abdomen and pelvis WITHOUT contrast INDICATION: Chest pain and abdominal pain. COMPARISON: Chest x-ray performed 07/16/2019 and 01/19/2020. TECHNIQUE: Chest , abdomen and pelvis was scanned utilizing a multidetector helical scanner. Absence of intravenous contrast decreases sensitivity for detection of lymphadenopathy and vascular pathology. Coronal and sagittal reformations were obtained. Routine protocol was performed. IV CONTRAST: None COMPLICATIONS: None RADIATION DOSE: Total DLP: 2006.07 mGy*cm Estimated effective dose: (DLP x 0.014 x size factor) mSv CTDIvol has been reviewed. It is below the limits set by the Radiation Protocol Committee (RPC). FINDINGS: LINES/ TUBES: None. LUNGS AND AIRWAYS: No focal consolidation. Focal atelectasis noted in the right middle lobe. Central airways Airways are normal. PLEURA: There is a large right-sided pleural effusion with associated atelectasis. HEART AND MEDIASTINUM: The thyroid gland is normal. No mediastinal, hilar or axillary lymphadenopathy. The heart is mildly enlarged.. There is no pericardial effusion. HEPATOBILIARY: No focal hepatic lesions. No biliary ductal dilation. GALLBLADDER: No radio-opaque stones or sludge. No gallbladder wall thickening. SPLEEN: No splenomegaly... There is a small splenule PANCREAS: The unenhanced pancreas shows no focal masses. There is no ductal dilatation. ADRENALS: The adrenal glands are unremarkable. KIDNEYS/URETERS: The kidneys are atrophic. No hydronephrosis. No cystic or solid mass lesions. No stones. GI TRACT: No abnormal distention, wall thickening, or evidence of bowel obstruction. PELVIC ORGANS/BLADDER: The bladder is unremarkable. LYMPH NODES: Mildly prominent mesenteric lymph nodes are nonspecific could be reactive. VESSELS: There is severe atherosclerotic disease in the aorta and major arterial branches. PERITONEUM / RETROPERITONEUM: No free air or fluid. BONES: There are degenerative changes in the spine. SOFT TISSUES: There is a small fat containing para-umbilical hernia. IMPRESSION: 1. Large right-sided pleural effusion with associated atelectasis. 2. Mildly prominent mesenteric lymph nodes are nonspecific could be reactive. 3. Small fat containing para-umbilical hernia. Signed by: Jeyson Lemus MD on 01/19/2020 7:24 PM
[2020-01-19] MEDS: GABAPENTIN 400 MG CAP PO SCH (21:00)
[2020-01-19] MEDS: HYDRALAZINE HCL 25 MG TAB PO SCH (21:30)
[2020-01-19] MEDS ORDERED: DEXTROSE 50% SYRINGE 50 ML IV PRN (21:45)
--- NOTE | 2020-01-19 22:09 | NUR ---
Dr. Rangel called at beginning of shift regarding consult. stated he will be out of town until Sunday. Norberto Arcos NP notified and stated to consult Dr. Parks. New consult ordered and spoke with Najma at Dr. Parks's answering service at [phone]. called back and notified by RN at [phone].
[2020-01-19] MEDS: INSULIN LISPRO 100 UNIT/1 ML 3ML VIAL SQ SCH (22:17)
[2020-01-19] MEDS: TEMAZEPAM 15 MG CAP PO PRN (22:30)
[2020-01-20] VITALS (26 sets, daily range): BP systolic 132–177; BP diastolic 56–105
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
[2020-01-20 05:58] LABS: BASOPHILS # (AUTO) 0.1 (0.0-0.1); BASOPHILS % 0.9 % (0.0-1.0); EOSINOPHILS # (AUTO) 0.1 (0.0-0.4); HEMATOCRIT 31.5 % (38.2-49.6); HEMOGLOBIN 10.1 g/dL (14.0-18.0); LYMPHOCYTES # (AUTO) 1.3 (1.0-3.2); LYMPHOCYTES % 20.2 % (18.0-39.1); MEAN CORPUSCULAR HEMOGLOBIN 30.8 pg (28-32); MEAN CORPUSCULAR HGB CONC 32.1 g/dL (31-35); MONOCYTES # (AUTO) 0.5 (0.2-0.8); NEUTROPHILS # (AUTO) 4.6 (2.1-6.9); NEUTROPHILS % 69.6 % (38.7-80.0); PLATELET COUNT 175 x10e3/uL (140-360); RED BLOOD COUNT 3.28 x10e6/uL (4.3-5.7); RED CELL DISTRIBUTION WIDTH 16.9 % (11.7-14.4)
[2020-01-20] MEDS: ACETAMIN/BUTALBITAL/CAFFEINE TAB PO PRN ×3 (06:15→22:04)
[2020-01-20 06:35] LABS: CHOL/HDL RATIO 2.2 (3.9-4.7)
[2020-01-20] MEDS: INSULIN LISPRO 100 UNIT/1 ML 3ML VIAL SQ SCH ×4 (07:30→22:04)
[2020-01-20] MEDS: SEVELAMER CARBONATE 800 MG TAB PO SCH ×3 (07:59→15:43)
[2020-01-20] MEDS: FAMOTIDINE 20 MG/2 ML VIAL IV SCH ×2 (07:59→15:43)
[2020-01-20] MEDS: ATENOLOL 50 MG TAB PO SCH (08:00)
[2020-01-20] MEDS: AMLODIPINE BESYLATE 5 MG TAB PO SCH (08:00)
[2020-01-20] MEDS: GABAPENTIN 400 MG CAP PO SCH ×2 (08:00→20:30)
[2020-01-20] MEDS: HYDRALAZINE HCL 25 MG TAB PO SCH ×3 (08:00→20:30)
[2020-01-20] MEDS ORDERED: LIDOCAINE HCL 1% LOCAL INJ 20 ML VIAL INJ ONE (08:00)
[2020-01-20] MEDS: DOCUSATE SODIUM 100 MG CAP PO SCH ×2 (08:00→15:43)
[2020-01-20] MEDS: ASPIRIN 325 MG TAB PO SCH (08:00)
[2020-01-20 08:08] LABS: CREATINE KINASE MB 2.9 ng/mL (0-5.0)
[2020-01-20 08:31] LABS: ANION GAP 25.3 mmol/L (8-16); CALCIUM 8.8 mg/dL (8.4-10.2); CREATININE, SERUM 6.92 mg/dL (0.72-1.25)
--- NOTE | 2020-01-20 08:36 | Consultation ---
DATE OF CONSULTATION: 01/20/2020 CHIEF COMPLAINT: Anal pain. HISTORY OF PRESENT ILLNESS: The patient is a 59-year-old male admitted for shortness of breath, also complaining of anal lesion, which is painful for a week. No fever, chills, or diarrhea. PAST MEDICAL HISTORY: Positive for diabetes, end-stage renal disease, coronary artery disease, TIA, blindness, and peripheral arterial disease. PAST SURGICAL HISTORY: Positive for AV fistula creation and peripheral vascular procedures. ALLERGIES: HE HAS NO DRUG ALLERGIES. SOCIAL HABITS: The patient denies smoking, but drinks socially. REVIEW OF SYSTEMS: He denies chest pain, mild shortness of breath, no cough or fevers. PHYSICAL EXAMINATION: VITAL SIGNS: Stable. The patient is afebrile. GENERAL: He is awake and alert, in mild discomfort. HEENT: Sclerae nonicteric. NECK: Supple. LUNGS: Clear. HEART: Regular rate and rhythm. ABDOMEN: Soft. Anal region revealed 2 cm indurated, erythematous lesions at the 2 o'clock positions at the anal verge consistent with evolving abscess formation. EXTREMITIES: No cyanosis or edema. LABORATORY DATA: White cell count is 11.2, hemoglobin 11. Creatinine of 5. Abdominal CT was unremarkable. Chest x-ray, cardiomegaly. No effusion. ASSESSMENT: Anal abscess. PLAN: Incision and drainage of perianal abscess, under local medication. Terell Parks MD DNMae/MODL /[id number]
[2020-01-20 08:49] LABS: POTASSIUM 5.3 mmol/L (3.5-5.1)
[2020-01-20 08:53] LABS: ALBUMIN/GLOBULIN RATIO 1.4 (0.8-2.0)
[2020-01-20] MEDS ORDERED: AMLODIPINE BESYLATE 10 MG TAB PO SCH (09:00)
[2020-01-20] MEDS ORDERED: SODIUM CHLORIDE 0.9% 1000ML 2,000 ML ONE (09:06)
--- NOTE | 2020-01-20 09:27 | Consultation ---
DATE OF CONSULTATION: Pulmonary Critical Care Consultation CHIEF COMPLAINT: Dyspnea, renal failure, and pleural effusions. HISTORY OF PRESENT ILLNESS: The patient is a 59-year-old man. He has a history of end-stage renal disease and has required dialysis for the past 3 years. He also has some chronic dyspnea and uses oxygen at home. He came to the emergency department because he had increased dyspnea as well as stiffness in his extremities. He was found to have an elevated potassium as well as right pleural effusion and some dyspnea. He required emergent dialysis yesterday. He reports some improvement in his symptoms today. PAST SURGICAL HISTORY: 1. Status post placement of an arterial venous fistula. 2. Peripheral arterial surgery. PAST MEDICAL HISTORY: 1. Diabetes. 2. End-stage renal disease. 3. Peripheral neuropathy related to diabetes. 4. Retinopathy from diabetes. 5. History of a prior stroke. FAMILY HISTORY: Family history is significant for cancer. SOCIAL HISTORY: The patient is not a smoker. He has never been a smoker. He is not a drinker. ALLERGIES: THE PATIENT HAS NO KNOWN DRUG ALLERGIES. REVIEW OF SYSTEMS: He does not complain of fever or headache. He has no chest pain. He did have some dyspnea. He is not having abdominal pain. There is no nausea or vomiting. He has some pain and swelling in his perirectal area and was found to have a small perirectal abscess. There is no leg edema. He does have some neuropathy and sensory loss in his lower extremities. PHYSICAL EXAMINATION: VITAL SIGNS: Blood pressure is 177/105, pulse is 105, and saturation is 99% on 2 L. HEENT: Shows no facial swelling or erythema. LYMPHATIC: Shows no submandibular, cervical, or supraclavicular adenopathy. NECK: Shows no JVD or thyromegaly. There is no nuchal rigidity. CARDIAC: Reveals regular rate and rhythm with normal S1 and S2. LUNGS: Auscultation of lungs reveals decreased breath sounds at the bases. There is no wheezing. ABDOMEN: Soft and nontender. There is no rebound or guarding. EXTREMITIES: Show no leg edema or calf tenderness. LABORATORY DATA: Hemoglobin is 10.1, white blood cell count is 6.6, and platelet count is 175,000. The BUN to creatinine ratio is 28 to 5.46. Electrolytes are now within normal limits and the potassium is 4.4. RADIOGRAPHIC DATA: CT scan of the chest shows moderate right-sided pleural effusion. There is some cardiomegaly. Chest x-ray shows cardiomegaly and venous congestion. IMPRESSION: 1. Hhocy-sv-gztbshm respiratory failure. 2. Right pleural effusion. 3. Accelerated hypertension. 4. End-stage renal disease with hyperkalemia and uremia. 5. Chronic diastolic heart failure. 6. Diabetes. 7. Perirectal abscess. PLAN: 1. The patient's pleural effusion is probably related to volume overload, hypertension, and diastolic heart failure. We will repeat the dialysis again today and control the blood pressure. We will then repeat the x-ray to see if it is improved. 2. Dialysis is scheduled for again today. 3. Echocardiogram. 4. Continue current antihypertensive regimen. 5. Drainage of perirectal abscess. 6. Monitor and control blood sugars. 7. IV antibiotics. MD HA Keen/BRIGHT /[id number]
--- NOTE | 2020-01-20 09:38 | Diagnostic Imaging Report ---
TECHNIQUE: Frontal view of the chest. INDICATION: ^pleural effusion ^[id number] ^900 COMPARISON: Prior day. DISCUSSION: Limited evaluation due to portable technique. Lines and hardware: Overlying EKG leads are again noted. Heart and mediastinum: Stable. Lungs and pleura: Hazy opacities within the right lung base and right midlung, asymmetric compared to the left. Left lung is grossly clear. Trace blunting of the right costo phrenic angle is noted. Negative for large pneumothorax. Soft tissues and bones: No acute abnormality. IMPRESSION: Hazy opacities of the right mid lung and right lung base a concerning for a moderate pleural effusion. Superimposed infection difficult to exclude. Signed by: Anurag Sotelo MD on 01/20/2020 9:34 AM
--- NOTE | 2020-01-20 09:52 | Operative Report ---
DATE OF PROCEDURE: 01/20/2020 SURGEON: Terell Parks MD PREOPERATIVE DIAGNOSIS: Perianal abscess. POSTOPERATIVE DIAGNOSIS: Perianal abscess. OPERATIVE PROCEDURE: Incision and drainage of perianal abscess. ANESTHESIA: General, local. INDICATION: A 59-year-old male with end-stage renal disease, developing an abscess in the perianal region for a week. He consented for this drainage under local anesthesia. PROCEDURE FINDINGS: Small abscess in the perianal region at 1 o'clock. DESCRIPTION OF PROCEDURE: The patient was placed in supine position with leg frogged and anal area prepped with Betadine and draped in sterile fashion. Local anesthesia 1% injected into the skin and subcutaneous tissue around the abscess. A small radial incision was made from 1 cm in length and extending into the abscess cavity. Purulent material was evacuated completely. Hemostasis achieved with pressure with 4 x 4 gauze and tape. The patient tolerated the procedure well. Terell Parks MD DNL/MODL /[id number]
--- NOTE | 2020-01-20 17:36 | NUR ---
Patient is at his baseline functional level and skilled PT services not indicated at this time. thank you Addendum: 01/20/20 at 1737 by Jamie fitzgerald PT Amended: Links added.
[2020-01-20] MEDS: TEMAZEPAM 15 MG CAP PO PRN (22:05)
[2020-01-21] VITALS (19 sets, daily range): BP systolic 122–182; BP diastolic 54–88
[2020-01-21 04:51] LABS: BASOPHILS # (AUTO) 0.1 (0.0-0.1); BASOPHILS % 1.3 % (0.0-1.0); EOSINOPHILS # (AUTO) 0.2 (0.0-0.4); EOSINOPHILS % 3.7 % (0.0-6.0); HEMATOCRIT 30.7 % (38.2-49.6); HEMOGLOBIN 9.9 g/dL (14.0-18.0); LYMPHOCYTES # (AUTO) 1.2 (1.0-3.2); LYMPHOCYTES % 19.2 % (18.0-39.1); MEAN CORPUSCULAR HEMOGLOBIN 30.7 pg (28-32); MEAN CORPUSCULAR HGB CONC 32.2 g/dL (31-35); MEAN CORPUSCULAR VOLUME 95.3 fL (81-99); MONOCYTES # (AUTO) 0.6 (0.2-0.8); MONOCYTES % 10.5 % (4.4-11.3); NEUTROPHILS # (AUTO) 3.9 (2.1-6.9); NEUTROPHILS % 65.1 % (38.7-80.0); PLATELET COUNT 160 x10e3/uL (140-360); RED BLOOD COUNT 3.22 x10e6/uL (4.3-5.7); RED CELL DISTRIBUTION WIDTH 16.9 % (11.7-14.4)
[2020-01-21 05:09] LABS: ANION GAP 19.5 mmol/L (8-16); CALCIUM 8.4 mg/dL (8.4-10.2); CREATININE, SERUM 5.41 mg/dL (0.72-1.25); POTASSIUM 4.5 mmol/L (3.5-5.1)
[2020-01-21] MEDS: HYDRALAZINE HCL 25 MG TAB PO SCH ×3 (06:37→21:26)
[2020-01-21] MEDS: INSULIN LISPRO 100 UNIT/1 ML 3ML VIAL SQ SCH ×4 (07:30→21:30)
[2020-01-21] MEDS ORDERED: SODIUM CHLORIDE 0.9% 1000ML 2,000 ML ONE (08:56)
[2020-01-21] MEDS: ASPIRIN 325 MG TAB PO SCH (09:39)
[2020-01-21] MEDS: DOCUSATE SODIUM 100 MG CAP PO SCH ×2 (09:39→16:25)
[2020-01-21] MEDS: SEVELAMER CARBONATE 800 MG TAB PO SCH ×3 (09:39→16:25)
[2020-01-21] MEDS: AMLODIPINE BESYLATE 5 MG TAB PO SCH (09:39)
[2020-01-21] MEDS: GABAPENTIN 400 MG CAP PO SCH ×2 (09:39→21:26)
[2020-01-21] MEDS: FAMOTIDINE 20 MG/2 ML VIAL IV SCH ×2 (09:39→16:24)
[2020-01-21] MEDS: ATENOLOL 50 MG TAB PO SCH (09:40)
[2020-01-21] MEDS ORDERED: MORPHINE SULFATE 2 MG/ML SYR 1ML IV STA (10:03)
[2020-01-21] MEDS ORDERED: HYDROCODONE/APAP 7.5MG-325MG 1 EA TAB PO PRN (10:15)
[2020-01-21] MEDS ORDERED: TRAMADOL HCL 50 MG TAB PO PRN (10:15)
[2020-01-21] MEDS ORDERED: MORPHINE SULFATE 2 MG/ML SYR 1ML IV PRN (10:15)
--- NOTE | 2020-01-21 17:02 | NUR ---
Nutrition Screen Note RD Recommendation for Physician: -Recommend renal/diabetic diet Plan of Care: RD following, monitoring for tolerance and adequacy Nutrition reason for involvement: consult for renal diet education Primary Diagnose(s): abdominal pain, ESRD, hyperkalemia, and symptomatic bradycardia PMH: Diabetes, End-stage renal disease, Peripheral neuropathy related to diabetes, Retinopathy from diabetes, History of a prior stroke. Ht: 71 in Wt: 220.31 lb BMI: 30.7 kg/m2 IBW:[address] Assessment: (01/21/20) Chart reviewed. Labs and meds reviewed. Pt is a 59 year old male admitted with abdominal pain, ESRD, hyperkalemia, and symptomatic bradycardia. Pt reports eating all of his meals. Pt was unsure of any recent weight changes and stated he usually weighs 205 lbs. However, pt currently has a weight of 220 lbs in chart. No N/V/D/ or chewing/swallowing issues. Provided pt with renal diet education materials. Pt was not interested in verbal education at time of visit and stated he will read provided materials at a later time. Encouraged pt to contact RD if he has questions. Will continue to monitor. Current Diet: regular Malnutrition Evaluation (01/21/20) The patient does not meet criteria for a specified degree of malnutrition at this time. Will re-evaluate at follow-up as appropriate. Diet Education Needs Assessment: Diet education indicated, Provided pt with renal diet education materials. Pt was not interested in verbal education at time of visit and stated he will read provided materials at a later time. Encouraged pt to contact RD if he has questions. Will continue to monitor. Nutrition Care Level: low Signed: Leona Virk, RD, LD
[2020-01-22] VITALS (15 sets, daily range): BP systolic 112–180; BP diastolic 56–87
[2020-01-22] MEDS ORDERED: BISACODYL 10 MG SUPP PR PRN (00:45)
--- NOTE | 2020-01-22 01:55 | Progress Note ---
DATE: 01/20/2020 SUBJECTIVE: The patient is supine in bed, in no acute distress. He has a history of end-stage renal disease and has required dialysis for the past 3 years. He also has some chronic dyspnea and uses oxygen at home. He came to the emergency department because he had increased dyspnea as well as stiffness in the extremities. He required emergent dialysis yesterday and has had some improvement in his symptoms today. PHYSICAL EXAMINATION: VITAL SIGNS: Temperature 97.7, pulse 147, blood pressure 147/73, respirations 16, oxygen saturation 99%. GENERAL: No acute distress. LUNGS: Generally clear. Diminished in the bases. Oxygen 2 L/minute via nasal cannula. HEENT: Blind and deaf in the right ear. NECK: Supple. CARDIOVASCULAR: Regular rate and rhythm without murmur. Left forearm AV graft. ABDOMEN: Bowel sounds positive. Soft. Mild tenderness in the right lower quadrant. He has a known perirectal abscess. EXTREMITIES: Without pitting edema. No clubbing, cyanosis, or marked swelling. NEUROLOGICAL: GCS 15. Nonfocal. LABORATORY DATA: WBC 6.57 (11.28), hemoglobin 10.1, hematocrit 31.5, platelets 175, neutrophils 69.6. Sodium 138, potassium 4.5, chloride 98, CO2 of 25, anion gap 19.5, BUN 21, creatinine 5.41, estimated GFR 11, glucose 93, calcium 8.4. Coronavirus PCR collected today and results are pending. On 01/08, blood cultures x2 have been collected, final results are pending. Chest x-ray today, according to the interpreting radiologist, with hazy opacities of the right mid lung and right lung base, concerning for moderate pleural effusion, superimposed infection difficult to exclude. ASSESSMENT AND PLAN: 1. End-stage renal disease with hyperkalemia and uremia, usually on hemodialysis on Sunday, Sunday, and Sunday, needing hemodialysis on admission. The patient underwent hemodialysis yesterday and today. Continue hemodialysis per Nephrology. Hyperkalemia no longer life-threatening. Potassium level 5.3 (7.3). Metabolic acidosis and fluid volume overload improving. 2. Large right pleural effusion with kxeez-xj-cpnpevu respiratory failure, oxygen dependence. Continue hemodialysis per Nephrology. Right thoracentesis by Interventional Radiology still a consideration. We will continue with hemodialysis for now. 3. Uncontrolled hypertension with end-stage renal disease and congestive heart failure. Blood pressure 147/73, improved. Heart rate noted at 147. Home medications resumed. 4. Chronic diastolic congestive heart failure. Continue hemodialysis per Nephrology. Monitor chest x-ray results. Strict intake and output. 5. Uncontrolled type 2 diabetes mellitus with hyperglycemia and peripheral neuropathy. Continue renal diabetic diet. Hemoglobin A1c 7.1% today. Fingerstick blood glucose levels 129, 148. Monitor fasting blood sugar glucose. 6. Perianal abscess. Surgery has been consulted. 7. 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 Inpatient, billing code [id number], time spent 45 minutes. Dictated by Norberto Arcos NP MD MICHEAL [place]/MODL /[id number]
--- NOTE | 2020-01-22 02:05 | Progress Note ---
DATE: 01/21/2020 SUBJECTIVE: The patient is supine, head of bed elevated. He is able to achieve 2 L with incentive spirometry when assisted as he is blind. He is in good spirits. He said that his right-sided abdominal pain that he was having shortly after admission as mentioned in my history and physical is resolved. Systolic blood pressure 140s to 180s. Last bowel movement on Sunday, 01/18. The patient participated with physical therapy today and ambulated well. PHYSICAL EXAMINATION: VITAL SIGNS: Temperature 97.7, pulse 65, blood pressure 177/81, respirations 17, oxygen saturation 100% on 2 L of oxygen via nasal cannula. Intake and output 1110 mL in and 3 L out. GENERAL: Supine, in no acute distress. LUNGS: Generally clear to auscultation, diminished in the bases. Oxygen at 2 L/minute via nasal cannula. HEENT: Blind. EOMI. Deaf in the right ear. NECK: Supple. No lymphadenopathy, thyromegaly, or JVD. CARDIOVASCULAR: Regular rate and rhythm without murmur. Left forearm AV graft with good thrill and bruit. ABDOMEN: Bowel sounds positive. Soft and nontender. No outpouching noted with umbilical hernia. He has a known perianal abscess. EXTREMITIES: Without pitting edema. No clubbing, cyanosis, or marked swelling. NEUROLOGICAL: GCS 15. Nonfocal. LABORATORY DATA: Sodium 138, potassium 4.5, chloride 98, CO2 of 25, anion gap 19.5, BUN 21, creatinine 5.41, estimated GFR 11, glucose 93, calcium 8.4. Fingerstick blood glucose levels 137 and 238. WBC 5.99, hemoglobin 9.9, hematocrit 30.7, and platelets 160. On 01/19, coronavirus PCR was negative. Hepatitis panel negative. Hepatitis B surface antibody quantitative less than 3.1. Blood cultures x2 show no growth after 48 hours. IMAGING: No new imaging results. PROCEDURES: 1. Incision and drainage of perianal abscess by Dr. Parks today. Purulent material was evacuated completely. 2. Hemodialysis on Thursday 01/18, Friday 01/19, and Saturday 01/20. ASSESSMENT AND PLAN: 1. End-stage renal disease with hyperkalemia and uremia, on hemodialysis Sunday, Sunday, and Sunday, needing hemodialysis. Nephrology following. Continue dialysis per recommendations. Potassium level 4.5, considerably improved. 2. Metabolic acidosis and fluid volume overload. This improved considerably. Serum bicarbonate level 25. Intake and output 1110 mL and 3000 mL out. Continue hemodialysis per Nephrology. 3. Large right pleural effusion. Pulmonology following. Continue hemodialysis. Follow up on chest x-ray results and consider right thoracentesis if needed. 4. Sfdfk-qj-xsgniad respiratory failure, oxygen dependence. The patient on 2 L of oxygen via nasal cannula. His home dose, at present with oxygen saturation 100%, achieves 2 L with incentive spirometry. Denies shortness of breath. 5. Chronic diastolic congestive heart failure. Continue dialysis per Nephrology. Monitor chest x-ray results. Echocardiogram ordered and Cardiology consult. 6. Uncontrolled type 2 diabetes mellitus with hyperglycemia and peripheral neuropathy. Serum glucose 93, hemoglobin A1c 7.1%. Continue renal diabetic diet. Monitor fasting blood sugar glucose before meals and at bedtime. 7. Perianal abscess, status post I and D of perianal abscess by Dr. Parks on 01/20/2020. Per documentation, all of purulent material removed. No culture and sensitivity sent at this point. WBCs 5.99. Blood cultures x2 collected on 01/18, show no growth after 48 hours. Localized Wound Care Surgery continue to follow. 8. 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 Continue to assist with incentive spirometry. The patient ambulated well with assistance from Physical Therapy. Start Colace and MiraLAX for possible constipation. Last bowel movement Sunday, 01/18. Orders will be in to transfer to the floor unit. 9. Prophylaxis, Pepcid. Ambulatory. Inpatient, billing code [id number]. Time spent 35 minutes. Dictated by Norberto Arcos NP Nasim Nunez MD HWP/MODL /[id number]
[2020-01-22] MEDS: INSULIN LISPRO 100 UNIT/1 ML 3ML VIAL SQ SCH ×4 (07:30→21:24)
[2020-01-22] MEDS: POLYETHYLENE GLYCOL 3350 17 GM PACK PO SCH ×2 (09:00→17:00)
[2020-01-22] MEDS: FAMOTIDINE 20 MG/2 ML VIAL IV SCH ×2 (09:42→17:39)
[2020-01-22] MEDS: SEVELAMER CARBONATE 800 MG TAB PO SCH ×3 (09:42→17:00)
[2020-01-22] MEDS: HYDRALAZINE HCL 25 MG TAB PO SCH ×3 (10:17→21:16)
[2020-01-22] MEDS: ASPIRIN 325 MG TAB PO SCH (10:17)
[2020-01-22] MEDS: DOCUSATE SODIUM 100 MG CAP PO SCH ×2 (10:17→17:00)
[2020-01-22] MEDS: ATENOLOL 50 MG TAB PO SCH (10:18)
[2020-01-22] MEDS: AMLODIPINE BESYLATE 5 MG TAB PO SCH (10:18)
[2020-01-22] MEDS: GABAPENTIN 400 MG CAP PO SCH (10:18)
[2020-01-22] MEDS ORDERED: GABAPENTIN 400 MG CAP PO SCH (12:30)
--- NOTE | 2020-01-22 12:38 | Progress Note ---
DATE: SUBJECTIVE: The patient feels better. He has less dyspnea. He is not complaining of fever or cough. PHYSICAL EXAMINATION: VITAL SIGNS: The blood pressure is 130/56 and saturation is 100% on 2 L. The pulse is 66. HEENT: Shows no facial swelling or erythema. LYMPHATIC: Shows no submandibular, cervical, or supraclavicular adenopathy. CARDIAC: Reveals regular rate and rhythm with normal S1, S2. LUNGS: Auscultation of lungs reveals rhonchorous breath sounds bilaterally. There is no wheezing. ABDOMEN: Soft, nontender. There is no rebound or guarding. EXTREMITIES: Shows no leg edema or calf tenderness. There is no cyanosis, clubbing. SKIN: Shows no rashes. LABORATORY DATA: The white blood cell count is 5.99, hemoglobin is 9.9. The platelet count is 160. The BUN to creatinine ratio is 21 to 5.41. The glucose is 130 to 260. The other electrolytes are within normal limits. IMPRESSION: 1. Pleural effusion, probably secondary to fluid overload and uremia. 2. Chronic diastolic heart failure. 3. Accelerated hypertension. 4. End-stage renal disease. 5. Diabetes. PLAN: 1. Repeat PA and lateral chest x-ray. 2. The patient is symptomatically improved and if his pleural effusion is improved on x-ray, no thoracentesis is required. 3. Continue current cardiac regimen. 4. Continue to monitor and control blood sugars. MD HA Keen/BRIGHT /[id number]
--- NOTE | 2020-01-22 13:14 | Diagnostic Imaging Report ---
Chest, 2 views, 01/22/2020. History: Pulmonary edema. Comparison: 01/20/2020. Findings: The cardiomediastinal silhouette and pulmonary vasculature are mildly prominent. The left lung is clear. Right basilar atelectasis with small right pleural effusion is present. There are no acute osseous or soft tissue abnormalities. Impression: Mild pulmonary edema with right lower lobe atelectasis and small right pleural effusion. Signed by: Beny Street on 01/22/2020 1:11 PM
[2020-01-22] MEDS: AMOXICILLIN/CLAVULANATE K 500 MG TAB PO SCH ×2 (14:30→21:24)
[2020-01-22] MEDS ORDERED: ACETAMINOPHEN/CODEINE 300MG - 30MG TAB PO PRN (22:00)
[2020-01-22] MEDS: ACETAMIN/BUTALBITAL/CAFFEINE TAB PO PRN (23:40)
--- NOTE | 2020-01-22 23:40 | NUR ---
Medicated for c/o pain.
[2020-01-23] VITALS (7 sets, daily range): BP systolic 117–177; BP diastolic 56–90
--- NOTE | 2020-01-23 01:57 | Progress Note ---
DATE: SUBJECTIVE: The patient has minimal complaints, he is in good spirits. He states he only has the right-sided abdominal pain and he did mention to me before when he is leaning over to the right side and applying pressure. OBJECTIVE: VITAL SIGNS: Temperature 98.1, pulse 61, blood pressure 148/75, respirations 12, and oxygen saturation 100%. GENERAL: In no acute distress. Supine with head of bed elevated. LUNGS: Clear to auscultation. Respiratory pattern even and unlabored. No supplemental oxygen at present. HEENT: Blind. EOMI. Deaf in the right ear. NECK: Supple. No lymphadenopathy, thyromegaly, or JVD. CARDIOVASCULAR: Regular rate and rhythm without murmur. Left forearm AV graft with good bruit and thrill. ABDOMEN: Bowel sounds positive. Soft and nontender. No outpouching noted with the periumbilical hernia. EXTREMITIES: Without pitting edema. No clubbing, cyanosis, or signs of DVT. NEUROLOGIC: GCS 15. Nonfocal. INTEGUMENTARY: He has a small wound from the former perianal abscess with a dressing covering. LABORATORY DATA: Generally lab holiday today. Fingerstick blood glucose levels 259, 249, and 133. IMAGING PROCEDURE: Imaging chest x-ray showed mild pulmonary edema with right lower lobe atelectasis and small right pleural effusion. ASSESSMENT AND PLAN: 1. End-stage renal disease with recent hyperkalemia and uremia, on hemodialysis Sunday, Sunday, and Sunday. Nephrology following with hemodialysis planned in the morning. Current potassium level is 4.5, considerably improved. 2. Metabolic acidosis and fluid volume overload, improved. Serum bicarbonate level 25 yesterday. Continue hemodialysis per Nephrology. 3. Large right pleural effusion. Pulmonology is following. Continue hemodialysis. Follow up on postdialysis chest x-ray results. 4. Wknyk-wg-qhcvgdc respiratory failure, oxygen dependence. He denies shortness of breath. He is able to achieve 2 L with incentive spirometry. 5. Chronic diastolic congestive heart failure. Continue hemodialysis per Nephrology. Monitor chest x-ray results. Echocardiogram ordered and Cardiology to follow. 6. Uncontrolled type 2 diabetes mellitus with hyperglycemia and peripheral neuropathy. Hemoglobin A1c 7.1%. Continue renal diabetic diet. Monitor FSBG before meals at bedtime. 7. Perianal abscess, status post I and D of perianal abscess by Dr. Parks on 01/20/2020. No growth after 48 hours. 8. 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 Continue to assist with incentive spirometry. Dictated by Norberto Arcos, LUIZA MD MICHEAL [place]/BRIGHT /[id number]
[2020-01-23 04:56] LABS: BASOPHILS # (AUTO) 0.1 (0.0-0.1); EOSINOPHILS # (AUTO) 0.3 (0.0-0.4); HEMATOCRIT 32.3 % (38.2-49.6); HEMOGLOBIN 10.4 g/dL (14.0-18.0); LYMPHOCYTES # (AUTO) 1.5 (1.0-3.2); LYMPHOCYTES % 22.5 % (18.0-39.1); MEAN CORPUSCULAR HEMOGLOBIN 30.8 pg (28-32); MEAN CORPUSCULAR HGB CONC 32.2 g/dL (31-35); MEAN CORPUSCULAR VOLUME 95.6 fL (81-99); MONOCYTES # (AUTO) 0.6 (0.2-0.8); MONOCYTES % 9.5 % (4.4-11.3); NEUTROPHILS # (AUTO) 4.2 (2.1-6.9); NEUTROPHILS % 62.6 % (38.7-80.0); PLATELET COUNT 172 x10e3/uL (140-360); RED BLOOD COUNT 3.38 x10e6/uL (4.3-5.7); RED CELL DISTRIBUTION WIDTH 16.6 % (11.7-14.4)
[2020-01-23 05:25] LABS: ALBUMIN 3.8 g/dL (3.5-5.0); ALBUMIN/GLOBULIN RATIO 1.4 (0.8-2.0); ANION GAP 19.2 mmol/L (8-16); CALCIUM 8.1 mg/dL (8.4-10.2); CREATININE, SERUM 7.13 mg/dL (0.72-1.25); POTASSIUM 5.2 mmol/L (3.5-5.1)
[2020-01-23] MEDS ORDERED: GABAPENTIN100 MG PO (05:50)
[2020-01-23] MEDS ORDERED: AUGMENTIN 500-1 EACH PO (05:51)
--- NOTE | 2020-01-23 05:57 | Consultation ---
DATE OF CONSULTATION: 01/22/2020 Cardiology Consult Note REASON FOR CONSULTATION: Icapv-dz-skkcgrw CHF exacerbation. CHIEF COMPLAINT: Shortness of breath. HISTORY OF PRESENT ILLNESS: A 59-year-old man with history of chronic systolic CHF, diagnosed earlier this year per the patient, who presents with worsening shortness of breath and abdominal pain, currently feeling much better. Denies any acute chest pain or shortness of breath that he had a catheterization many years ago and has never had any stents or bypass surgery. PAST MEDICAL HISTORY: History of nonobstructive CAD, end-stage renal disease, on hemodialysis Sunday, Sunday, and Sunday, on home oxygen. Hypertension, hyperlipidemia, noncompliance with diet, chronic systolic CHF. FAMILY HISTORY: Noncontributory. SOCIAL HISTORY: Does not smoke. Drinks occasional. Abuse no drugs. REVIEW OF SYSTEMS: As per HPI, otherwise negative. OUTPATIENT MEDICATIONS: Reviewed. ALLERGIES: NO KNOWN DRUG ALLERGIES. PHYSICAL EXAMINATION: VITAL SIGNS: Temperature afebrile, pulse 64, respiratory rate 13, blood pressure 148/79, saturating 100% on room air. GENERAL: in no acute distress. CARDIOVASCULAR: Regular rate and rhythm. No murmurs, rubs, or gallops. LUNGS: Coarse breath sounds at bilateral bases. ABDOMEN: Soft, nontender, nondistended. NEURO AND PSYCH: Alert, oriented to person, place, and time. Normal affect. INPATIENT MEDICATIONS: Reviewed. LABORATORY DATA: Reviewed, notable for hemoglobin of 9. Troponins are negative. BNP elevated a 1000. Potassium on admission was 7.3, now normal after dialysis. IMAGING DATA: Reviewed. Chest x-ray shows mild pulmonary edema. Right pleural effusion. Echocardiogram reviewed. LVEF mildly reduced at 45%. No severe valvular abnormalities. ASSESSMENT: 1. Zjjxp-lw-cgkojqg systolic congestive heart failure exacerbation. 2. End-stage renal disease, on dialysis. 3. Hyperkalemia. 4. Pulmonary edema. PLAN: Volume status per Nephrology. The patient needs better compliance with his diet. Volume status now improved and hyperkalemia resolved after dialysis. Stable from cardiovascular standpoint otherwise okay to discharge tomorrow with close outpatient followup. Outpatient ischemic workup for his CHF. Thank you for this consult. We will continue to follow. MD GENESIS Meade/BRIGHT /[id number]
[2020-01-23] MEDS: SEVELAMER CARBONATE 800 MG TAB PO SCH ×3 (08:00→16:49)
[2020-01-23] MEDS: DOCUSATE SODIUM 100 MG CAP PO SCH ×2 (09:00→16:49)
[2020-01-23] MEDS: POLYETHYLENE GLYCOL 3350 17 GM PACK PO SCH ×2 (09:00→16:49)
[2020-01-23] MEDS: ATENOLOL 50 MG TAB PO SCH (09:20)
[2020-01-23] MEDS: GABAPENTIN 100 MG CAP PO SCH (09:20)
[2020-01-23] MEDS: FAMOTIDINE 20 MG/2 ML VIAL IV SCH ×2 (09:20→17:00)
[2020-01-23] MEDS: AMLODIPINE BESYLATE 5 MG TAB PO SCH (09:20)
[2020-01-23] MEDS: HYDRALAZINE HCL 25 MG TAB PO SCH ×4 (09:20→22:00)
[2020-01-23] MEDS: ASPIRIN 325 MG TAB PO SCH (09:20)
[2020-01-23] MEDS: AMOXICILLIN/CLAVULANATE K 500 MG TAB PO SCH ×2 (09:20→22:17)
[2020-01-23] MEDS: INSULIN LISPRO 100 UNIT/1 ML 3ML VIAL SQ SCH ×4 (09:21→22:16)
--- NOTE | 2020-01-23 14:13 | Progress Note ---
DATE: SUBJECTIVE: The patient feels better. He is awaiting hemodialysis. Repeat chest x-ray shows resolution of the pleural effusion. PHYSICAL EXAMINATION: VITAL SIGNS: The patient is afebrile. The vital signs are stable. HEENT: No facial swelling or erythema. LYMPHATIC: No submandibular, cervical, or supraclavicular adenopathy. CARDIAC: Regular rate and rhythm with normal S1, S2. LUNGS: Auscultation of lungs reveals rhonchorous breath sounds bilaterally. There is no wheezing. ABDOMEN: Soft, nontender. There is no rebound or guarding. EXTREMITIES: No leg edema or calf tenderness. There is no cyanosis or clubbing. SKIN: No rash. LABORATORY DATA: Hemoglobin is 10.4, white blood cell count is 6.77. Platelet count is 172. BUN to creatinine ratio is 40 to 7.13. Other electrolytes are within normal limits. IMPRESSION: 1. End-stage renal disease. 2. Accelerated hypertension. 3. Chronic diastolic heart failure. 4. Diabetes. PLAN: 1. Complete dialysis. 2. Probable discharge home. Shane Olson MD LM/MODL /[id number]
[2020-01-23] MEDS ORDERED: SODIUM CHLORIDE 0.9% 1000ML 2,000 ML ONE (16:18)
[2020-01-23] MEDS: ACETAMIN/BUTALBITAL/CAFFEINE TAB PO PRN (23:22)
[2020-01-24 00:45] VITALS: BP 175/81
[2020-01-24 01:00] VITALS: BP 162/78
[2020-01-24] MEDS: HYDRALAZINE HCL 20 MG/ML VIAL IV PRN (01:20)
[2020-01-24 06:15] VITALS: BP 153/76
[2020-01-24 08:00] VITALS: BP 131/80
[2020-01-24] MEDS: SEVELAMER CARBONATE 800 MG TAB PO SCH (08:00)
[2020-01-24] MEDS: INSULIN LISPRO 100 UNIT/1 ML 3ML VIAL SQ SCH (08:46)
[2020-01-24] MEDS: POLYETHYLENE GLYCOL 3350 17 GM PACK PO SCH (09:00)
[2020-01-24] MEDS ORDERED: AMLODIPINE BESYLATE 5 MG TAB PO SCH (09:00)
[2020-01-24] MEDS ORDERED: AMLODIPINE BESYLATE 10 MG TAB PO SCH (09:00)
[2020-01-24] MEDS: DOCUSATE SODIUM 100 MG CAP PO SCH (09:00)
[2020-01-24] MEDS: FAMOTIDINE 20 MG/2 ML VIAL IV SCH (09:00)
--- NOTE | 2020-01-24 09:26 | NUR ---
RECEIVED PATIENT FROM ICU IN STABLE CONDITION. NO S/S OF DISTRESS. CALL LIGHT IN REACH WILL CONTINUE TO MONITOR.
[2020-01-24] MEDS: ASPIRIN 325 MG TAB PO SCH (09:33)
[2020-01-24] MEDS: GABAPENTIN 100 MG CAP PO SCH (09:34)
[2020-01-24 09:37] VITALS: BP 131/80
[2020-01-24] MEDS: AMOXICILLIN/CLAVULANATE K 500 MG TAB PO SCH (11:15)
--- NOTE | 2020-01-24 11:30 | NUR ---
REMOVED PATIENTS IV. CATHETER TIP INTACT AND PRESSURE DRESSING APPLIED.
--- NOTE | 2020-01-24 11:35 | NUR ---
PATIENT DISCHARGED FROM FACILITY. PATIENT GATHERED ALL PERSONAL BELONGINGS, DISCHARGE INSTRUCTIONS, AND FOLLOW UP INFORMATION. PATIENT LEFT UNIT IN WHEELCHAIR AND WENT HOME VIA PRIVATE AUTO. NO S/S OF DISTRESS LEAVING FACILITY.
--- NOTE | 2020-01-24 15:32 | Discharge Summary ---
PCP: Non-staff. ADMITTING DIAGNOSES: 1. End-stage renal disease with severe hyperkalemia. 2. End-stage renal disease with volume overload. 3. Perianal abscess. 4. Hypertension with combined systolic and diastolic heart failure and end-stage renal disease. 5. Type 2 diabetes with end-stage renal disease or chronic kidney disease. DISCHARGE DIAGNOSES: 1. End-stage renal disease with severe hyperkalemia. 2. End-stage renal disease with volume overload. 3. Perianal abscess. 4. Hypertension with combined systolic and diastolic heart failure and end-stage renal disease. 5. Type 2 diabetes with end-stage renal disease or chronic kidney disease. 6. Status post hemodialysis with normalizing potassium and status post I and D of perianal abscess on January 19. The patient completed a course of antibiotics. HOSPITAL COURSE: Mr. Kruger is a 59-year-old gentleman with end-stage renal disease, who was admitted with shortness of breath. His last dialysis was a couple days ago. PAST MEDICAL HISTORY: Diabetes with end-stage renal disease, hypertension with coronary artery disease, chronic systolic and diastolic heart failure and end-stage renal disease, dialysis dependent Sunday, Sunday, Sunday. Peripheral neuropathy due to diabetes. HOSPITAL COURSE: The patient was admitted to the floor. He had a potassium of 7.3. He was given Kayexalate and Nephrology was consulted for stat hemodialysis. His potassium normalized after dialysis to 4.5. The patient was noted to have a perianal abscess. Surgery was consulted. The patient had I and D on the 2nd hospital day. The patient received IV antibiotics of vancomycin and will continue to receive those after dialysis for the next two weeks. The patient had some swelling in the upper extremities. Had venous Dopplers that were negative for DVT. He had a large right pleural effusion that IR did a thoracentesis. The patient was feeling much better. Shortness of breath had resolved. His volume overload had resolved with dialysis. His hyperkalemia was normalizing. He was dialyzed on the day of discharge, potassium 5.3 prior to discharge. The patient will resume his home medications. Follow up with his PCP and with hemodialysis on his usual schedule on Sunday. MD DWAYNE Richmond/BRIGHT /[id number]
== END 2020-01-24 11:35 | disposition home or self-care (01) | DRG 981 ==
LOC: ER 08:37 → ERHOLD 10:36 → ICU 11:40 → MED/SURG 01-24 09:26
PROVIDERS: ADMIT Internal Medicine; ATTEND Internal Medicine
PROC: 5A1D70Z Performance of Urinary Filtration, Intermittent, Less than 6 Hours Per Day (ICD-10-PCS; 2020-01-19)
PROC: 0D9Q0ZZ Drainage of Anus, Open Approach (ICD-10-PCS; principal; 2020-01-20)
PROC: 5A1D70Z Performance of Urinary Filtration, Intermittent, Less than 6 Hours Per Day (ICD-10-PCS; 2020-01-20)
PROC: 5A1D70Z Performance of Urinary Filtration, Intermittent, Less than 6 Hours Per Day (ICD-10-PCS; 2020-01-21)
PROC: 5A1D70Z Performance of Urinary Filtration, Intermittent, Less than 6 Hours Per Day (ICD-10-PCS; 2020-01-23)
DX: I13.2 Hypertensive heart and chronic kidney disease with heart failure and with stage 5 chronic kidney disease, or end stage renal disease (principal); N18.6 End stage renal disease; J96.20 Acute and chronic respiratory failure, unspecified whether with hypoxia or hypercapnia; I50.23 Acute on chronic systolic (congestive) heart failure; E87.2 Acidosis; K61.0 Anal abscess; E87.5 Hyperkalemia; E11.65 Type 2 diabetes mellitus with hyperglycemia; E87.70 Fluid overload, unspecified; E11.22 Type 2 diabetes mellitus with diabetic chronic kidney disease; Z86.73 Personal history of transient ischemic attack (TIA), and cerebral infarction without residual deficits; H54.7 Unspecified visual loss; R00.1 Bradycardia, unspecified; R53.1 Weakness; Z99.81 Dependence on supplemental oxygen; I25.10 Atherosclerotic heart disease of native coronary artery without angina pectoris; E78.5 Hyperlipidemia, unspecified; E11.42 Type 2 diabetes mellitus with diabetic polyneuropathy; H91.91 Unspecified hearing loss, right ear; Z80.1 Family history of malignant neoplasm of trachea, bronchus and lung; Z80.9 Family history of malignant neoplasm, unspecified; Z83.3 Family history of diabetes mellitus; Z11.59 Encounter for screening for other viral diseases; Z79.4 Long term (current) use of insulin; Z79.82 Long term (current) use of aspirin
CPT/HCPCS: 36415; 70450; 71045; 71046; 71250; 74176; 80048; 80053; 80061; 82550; 82553; 82948; 83036; 83690; 83735; 83880; 84484; 85025; 85610; 85730; 86704; 86705; 86706; 87040; 87340; 90962; 93005; 93306; 93971; 96372; 97139; 99284; J0360; J0610; J1610; J1817; J2001; J2405; J7030; U0002